=== PATIENT | female | born 1975 | race Caucasian/White ===

== ENCOUNTER → 2020-09-27 08:43 | Outpatient (BNVA) | payer MEDICARE, MEDICAID, SELFPAY | PROVIDERS: PCP Internal Medicine; Visit Provider Nurse Practitioner Family | DX: M47.27 Other spondylosis with radiculopathy, lumbosacral region (principal); M53.3 Sacrococcygeal disorders, not elsewhere classified | CPT/HCPCS: 99202 ==

== ENCOUNTER 2020-10-06 09:20 | Day surgery (SDC) | payer MEDICARE, MEDICAID, SELFPAY ==
--- NOTE | 2020-10-05 08:44 | P.CONAN_ITS ---
Documented by User: Farida Verona 10/05/20 13:07 HPI - Anesthesia Eval Consult details Narrative: 45yo F for Bilateral Medial Branch Block L3-L4,DR-L5 PMFSH Active Problems Active Problems: All Active Problems (Updated 09/27/20 @ 19:46 by Dilia Vicente NP) SI (sacroiliac) joint dysfunction (Acute) Spondylosis of lumbosacral spine with radiculopathy (Acute) Past Medical History Medical History Anxiety Arthritis Asthma Bipolar disorder CVA (cerebral vascular accident) Depression Fibromyalgia Hypertension Hypothyroid Insomnia ALEJANDRO (obstructive sleep apnea) Surgical History Surgical History S/P tubal ligation Social History Social History Smoking Status: Never smoker Use of substances other than those prescribed or required for medical reasons: No Have you been hit, kicked, punched, or otherwise hurt by someone within the past year? If so, by whom?: No Advance Directives: No Advance Directives Information Provided: No Recently lost weight without trying: No Meds Allergies Allergy/AdvReac Type Severity Reaction Status Date / Time acetaminophen [From PERCOCET] Allergy Unknown RASH Verified 09/27/20 09:07 amiloride Allergy Unknown unk Verified 09/27/20 09:07 codeine [CODEINE] Allergy Unknown RASH Verified 09/27/20 09:07 duloxetine [Cymbalta] Allergy Unknown rash/sick Verified 09/27/20 09:07 hydrochlorothiazide Allergy Unknown unk Verified 09/27/20 09:07 lurasidone [Latuda] Allergy Unknown unk Verified 09/27/20 09:07 milnacipran [Savella] Allergy Unknown rash/sick Verified 09/27/20 09:07 morphine Allergy Unknown Unknown Verified 09/27/20 09:07 Penicillins [PENICILLINS] Allergy Unknown NAUSEA & Verified 09/27/20 09:07 VOMITING, rash/sick pregabalin Allergy Unknown rash/sick Verified 09/27/20 09:07 sulindac Allergy Unknown Unknown Verified 09/27/20 09:07 From PERCOCET Allergy Unknown RASH Uncoded 05/04/20 17:51 Home Medications Medication Instructions Recorded Confirmed Last Taken Type albuterol sulfate 90 mcg/actuation 0 mcg INHALATION 09/27/20 09/27/20 Unknown History aerosol inhaler amitriptyline 100 mg tablet 100 mg PO BEDTIME 09/27/20 09/27/20 Unknown History aspirin 81 mg tablet,delayed 81 mg PO DAILY 09/27/20 09/27/20 Unknown History release atorvastatin 40 mg tablet 40 mg PO DAILY 09/27/20 09/27/20 Unknown History baclofen 20 mg tablet mg PO 09/27/20 09/27/20 Unknown History diazepam 2 mg tablet 2 mg PO BID 09/27/20 09/27/20 Unknown History diltiazem HCl 120 mg 120 mg PO DAILY 09/27/20 09/27/20 10/06/20 History capsule,extended release 24 hr famotidine 20 mg tablet 20 mg PO BID 09/27/20 09/27/20 Unknown History fluticasone propionate 50 0 mcg INTRANASAL 09/27/20 09/27/20 Unknown History mcg/actuation nasal spray,suspension furosemide 20 mg tablet 10 mg PO DAILY 09/27/20 09/27/20 Unknown History ibuprofen 400 mg tablet 400 mg PO BID 09/27/20 09/27/20 Unknown History lamotrigine 150 mg tablet 150 mg PO DAILY 09/27/20 09/27/20 Unknown History levocetirizine 5 mg tablet mg PO 09/27/20 09/27/20 Unknown History levothyroxine 150 mcg tablet 150 mcg PO DAILY 09/27/20 09/27/20 Unknown History linaclotide 145 mcg capsule 145 mcg PO QAM 09/27/20 09/27/20 Unknown History lisinopril 10 mg tablet 10 mg PO DAILY 09/27/20 09/27/20 Unknown History montelukast 10 mg tablet 10 mg PO DAILY 09/27/20 09/27/20 Unknown History nystatin 100,000 unit/gram topical TOPICAL TID 09/27/20 09/27/20 Unknown History powder penciclovir 1 % topical cream appl TOPICAL 09/27/20 09/27/20 Unknown History prednisolone acetate 1 % eye 1 drp OPHTHALMIC (EYE) Q6H ml 09/27/20 09/27/20 Unknown History drops,suspension trazodone 150 mg tablet 150 mg PO BEDTIME PRN 09/27/20 09/27/20 Unknown History Exam Exam Date and Time: October 05, 2020 0844 Assessment and Plan Assessment Anesthesia Assessment: Chart Reviewed Documented by User: Vlad Flanagan MD 10/06/20 11:22 [facility] Past Medical History Medical History Anxiety Arthritis Asthma Bipolar disorder CVA (cerebral vascular accident) Depression Fibromyalgia Hypertension Hypothyroid Insomnia ALEJANDRO (obstructive sleep apnea) Surgical History Surgical History S/P tubal ligation Social History Social History Smoking Status: Never smoker Use of substances other than those prescribed or required for medical reasons: No Have you been hit, kicked, punched, or otherwise hurt by someone within the past year? If so, by whom?: No Advance Directives: No Advance Directives Information Provided: No Recently lost weight without trying: No Meds Allergies Allergy/AdvReac Type Severity Reaction Status Date / Time acetaminophen [From PERCOCET] Allergy Unknown RASH Verified 09/27/20 09:07 amiloride Allergy Unknown unk Verified 09/27/20 09:07 codeine [CODEINE] Allergy Unknown RASH Verified 09/27/20 09:07 duloxetine [Cymbalta] Allergy Unknown rash/sick Verified 09/27/20 09:07 hydrochlorothiazide Allergy Unknown unk Verified 09/27/20 09:07 lurasidone [Latuda] Allergy Unknown unk Verified 09/27/20 09:07 milnacipran [Savella] Allergy Unknown rash/sick Verified 09/27/20 09:07 morphine Allergy Unknown Unknown Verified 09/27/20 09:07 Penicillins [PENICILLINS] Allergy Unknown NAUSEA & Verified 09/27/20 09:07 VOMITING, rash/sick pregabalin Allergy Unknown rash/sick Verified 09/27/20 09:07 sulindac Allergy Unknown Unknown Verified 09/27/20 09:07 From PERCOCET Allergy Unknown RASH Uncoded 05/04/20 17:51 Home Medications Medication Instructions Recorded Confirmed Last Taken Type albuterol sulfate 90 mcg/actuation 0 mcg INHALATION 09/27/20 09/27/20 Unknown History aerosol inhaler amitriptyline 100 mg tablet 100 mg PO BEDTIME 09/27/20 09/27/20 Unknown History aspirin 81 mg tablet,delayed 81 mg PO DAILY 09/27/20 09/27/20 Unknown History release atorvastatin 40 mg tablet 40 mg PO DAILY 09/27/20 09/27/20 Unknown History baclofen 20 mg tablet mg PO 09/27/20 09/27/20 Unknown History diazepam 2 mg tablet 2 mg PO BID 09/27/20 09/27/20 Unknown History diltiazem HCl 120 mg 120 mg PO DAILY 09/27/20 09/27/20 10/06/20 History capsule,extended release 24 hr famotidine 20 mg tablet 20 mg PO BID 09/27/20 09/27/20 Unknown History fluticasone propionate 50 0 mcg INTRANASAL 09/27/20 09/27/20 Unknown History mcg/actuation nasal spray,suspension furosemide 20 mg tablet 10 mg PO DAILY 09/27/20 09/27/20 Unknown History ibuprofen 400 mg tablet 400 mg PO BID 09/27/20 09/27/20 Unknown History lamotrigine 150 mg tablet 150 mg PO DAILY 09/27/20 09/27/20 Unknown History levocetirizine 5 mg tablet mg PO 09/27/20 09/27/20 Unknown History levothyroxine 150 mcg tablet 150 mcg PO DAILY 09/27/20 09/27/20 Unknown History linaclotide 145 mcg capsule 145 mcg PO QAM 09/27/20 09/27/20 Unknown History lisinopril 10 mg tablet 10 mg PO DAILY 09/27/20 09/27/20 Unknown History montelukast 10 mg tablet 10 mg PO DAILY 09/27/20 09/27/20 Unknown History nystatin 100,000 unit/gram topical TOPICAL TID 09/27/20 09/27/20 Unknown History powder penciclovir 1 % topical cream appl TOPICAL 09/27/20 09/27/20 Unknown History prednisolone acetate 1 % eye 1 drp OPHTHALMIC (EYE) Q6H ml 09/27/20 09/27/20 Unknown History drops,suspension trazodone 150 mg tablet 150 mg PO BEDTIME PRN 09/27/20 09/27/20 Unknown History Exam Airway Mallampati Class: III TM Dist: >3cm Neck ROM: Full Partial: Upper and Lower Loose/Missing/Broken Teeth: Yes Heart: RRR Lungs: NL Other: L sided weakness from prior CVA Assessment and Plan Assessment Anesthesia Assessment: Anesthesia Plan Discussed and Chart Reviewed Final Anesthetic Review NPO: Yes ASA Class: III Final Preanesthetic Review: No Changes in Pt Med Stat, Meds/Allgs Chart Reviewed, Consent Obtained/Reviewed and Anes Risks/Benef Reviewed Patient Risk: High Procedure Risk: Low Anesthetic Plan Anesthetic Plan: MAC: Disposition: Standard PACU
[2020-10-05 13:16] VITALS: BMI 42.3
--- NOTE | ~2020-10-06 | FL_ITS ---
EXAMINATION: XR FLUOROSCOPY WITH IMAGES CLINICAL INFORMATION: Medial branch block COMPARISON: None. TECHNIQUE: Fluoroscopy performed by Dr. Garfield Kaba. Fluoroscopy time: 0.8 minutes DAP: 13.0 Gycm2 Images: 6 FINDINGS: There are bilateral spinal needles overlying outer aspect bilateral L3, L4, L5 neural foramen. There is contrast seen in the respective nerve sheaths. No vascular communication. FL/FL guidance in OR IMPRESSION: Fluoroscopy for pain management procedures.
[2020-10-06 09:45] VITALS: BP 132/91; PULSE 86; RESP 16; TEMP 35.8; O2SAT 96
[2020-10-06] MEDS: Lactated Ringers 1,000 ML 100 ML IVCONT (10:01)
--- NOTE | 2020-10-06 11:04 | MHC.SHP ---
Pre-Procedural Eval Section A The patient is an INPATIENT: No Changes since office visit: Yes Patient answered all questions The History & Physical has been completed within 30 days and I have reviewed it.: No Section B Chief Complaint: Spondylosis Details of Present Illness: low back pain with rare radiation into the left LE Relevant Family History (Specify if Yes): No Relevant Social History: None Present Medications: see Short Stay Collaborative assessment Medical History: Significant History (morbid obesity, H/o stroke.) History of Previous Operations: No relevant previous surgery Allergies: Allergies Allergy/AdvReac Type Severity Reaction Status Date / Time acetaminophen [From PERCOCET] Allergy Unknown RASH Verified 09/27/20 09:07 amiloride Allergy Unknown unk Verified 09/27/20 09:07 codeine [CODEINE] Allergy Unknown RASH Verified 09/27/20 09:07 duloxetine [Cymbalta] Allergy Unknown rash/sick Verified 09/27/20 09:07 hydrochlorothiazide Allergy Unknown unk Verified 09/27/20 09:07 lurasidone [Latuda] Allergy Unknown unk Verified 09/27/20 09:07 milnacipran [Savella] Allergy Unknown rash/sick Verified 09/27/20 09:07 morphine Allergy Unknown Unknown Verified 09/27/20 09:07 Penicillins [PENICILLINS] Allergy Unknown NAUSEA & Verified 09/27/20 09:07 VOMITING, rash/sick pregabalin Allergy Unknown rash/sick Verified 09/27/20 09:07 sulindac Allergy Unknown Unknown Verified 09/27/20 09:07 From PERCOCET Allergy Unknown RASH Uncoded 05/04/20 17:51 Review of Systems Sugical H&P ROS: Negative: Cardiovascular, Respiratory, Neurological, Psychiatric, Hem-Onc, Allergic/Immunologic, Gastrointestinal, Genitourinary, Musculoskeletal, Integumentary, Endocrine and Eyes/Ears/Nose/Throat and Yes, Specify: Constitution (morbid obesity) Exam Surgical H&P Exam: Normal: HEENT, Normal: Heart, Normal: Lungs, Normal: Extremities and Normal: Neurological and Not Evaluated: Abdomen (greatly enlarged 2 to s/q and intrabdominal fat) and Not Evaluated: Skin (hemiparesis) Plan Diagnosis/Plan: Unchanged I have reviewed the history and physical and performed a pertinent physical examination on my patient. No changes have occurred unless specified.
--- NOTE | 2020-10-06 11:49 | P.OP_ITS ---
Operative Note Operative Note Date of Service: 10/06/20 Narrative: Informed consent was explained to the patient. All questions were explained and answered. The patient was taken inside the operating room where she was positioned prone on the operating table. [place] monitors were applied. Patient was deeply sedated. Opioids were avoided during the sedation. The patient was taken inside of the operating room where she was positioned prone operating table. Time-out was performed delineating correct site, side, the nature of the procedure, patient's allergy, preoperative antibiotic if needed. All operating room staff was participating in OR time-out procedure. The lower back was prepped with ChloraPrep and draped with sterile towels. Sterilely draped C-arm was brought over the operating field and sq picture of L4-and L5 vertebra and S1 AREA were delineated on the screen. Point of interest were delineated as connection of superior articular process of L4 and L5 vertebra bilaterally with corresponding transverse processes as well as connec tion of the sacral alae bilaterally with superior articular process of S1. The projection of the point of interest to the skin were injected with the small amount of local anesthetic lidocaine 2% 1-1.5 cc. After that 22 gauge regular spinal needles were driven to the point of interest in tunnel vision fashion. After needles gently contacted the bone at the point of interests the needle was injected with small amount of bupivacaine 0.5%-1cc. Upon completion of the injections needles were removed and sterile dressings were applied patient was awaken and taking outside of the operating room to recovery room where she recovered uneventfully. She went home without immediate complications.
[2020-10-06 11:50] VITALS: BP 133/86; PULSE 80; RESP 16; TEMP 36.9; O2SAT 94
--- NOTE | 2020-10-06 11:50 | PM.OP ---
Brief Operative Note Date of Service: 10/06/20 Pre-op diagnosis: spondylosis lumbar Post-op diagnosis: same Procedure: B/L MBB L3-L4-DRL5 Implants: 0 Surgeon: Garfield Kaba MD Anesthesia: MAC Estimated blood loss (mL): 0 Condition: stable Disposition: PACU
[2020-10-06 12:05] VITALS: BP 120/86; PULSE 79; RESP 16; O2SAT 92
[2020-10-06 12:20] VITALS: BP 122/79; PULSE 82; RESP 18; TEMP 36.9; O2SAT 96
== END 2020-10-06 13:18 ==
LOC: HO.SSS 09:21
PROVIDERS: PCP Internal Medicine; Visit Provider Anesthesiology
PROC: (CPT 64493; principal; 2020-10-06 10:30)
DX: M47.27 Other spondylosis with radiculopathy, lumbosacral region (principal); M53.3 Sacrococcygeal disorders, not elsewhere classified; J45.909 Unspecified asthma, uncomplicated; I10 Essential (primary) hypertension; I63.9 Cerebral infarction, unspecified; G81.94 Hemiplegia, unspecified affecting left nondominant side; F32.9 Major depressive disorder, single episode, unspecified; G47.33 Obstructive sleep apnea (adult) (pediatric); Z79.899 Other long term (current) drug therapy; Z99.89 Dependence on other enabling machines and devices; Z88.0 Allergy status to penicillin; Z79.82 Long term (current) use of aspirin
CPT/HCPCS: 64493; 64494; J2250; Q9967

== ENCOUNTER → 2020-10-11 11:42 | Outpatient (BNVA) | payer MEDICARE, MEDICAID, SELFPAY | PROVIDERS: PCP Internal Medicine; Visit Provider Nurse Practitioner Family | DX: M47.27 Other spondylosis with radiculopathy, lumbosacral region (principal) | CPT/HCPCS: Q3014 ==

== ENCOUNTER 2020-11-24 11:49 | Day surgery (SDC) | payer MEDICARE, MEDICAID, SELFPAY ==
[2020-11-21 13:00] VITALS: BMI 39.9
--- NOTE | 2020-11-23 10:02 | HO.ANESPROP2 ---
Documented by User: Farida Rhoades 11/23/20 10:03 HPI - Anesthesia Eval Consult details Narrative: 45yo F for Bilateral Medial Branch Radiofrequency AB s/p Bilateral Medial Branch Block L3-L4,DR-L5 with MAC 09/2020 Multiple Med Allergies PMFSH Active Problems Active Problems: All Active Problems (Updated 11/21/20 @ 12:49 by Gilma Hernandez RN) Spondylosis of lumbosacral spine with radiculopathy (Acute) SI (sacroiliac) joint dysfunction (Acute) Past Medical History Medical History Anxiety Arthritis Asthma Bipolar disorder CVA (cerebral vascular accident) Depression Diabetes Fibromyalgia Hypertension Hypothyroid Insomnia ALEJANDRO (obstructive sleep apnea) Surgical History Surgical History History of endometrial ablation History of hernia surgery Hx of appendectomy S/P tubal ligation Social History Social History Smoking Status: Never smoker Use of substances other than those prescribed or required for medical reasons: No Advance Directives: No Advance Directives Information Provided: Yes Meds Allergies Allergy/AdvReac Type Severity Reaction Status Date / Time acetaminophen [From PERCOCET] Allergy Severe Nausea and Verified 11/24/20 13:54 Vomiting lurasidone [Latuda] Allergy Severe unk Verified 11/24/20 13:54 morphine Allergy Severe Nausea and Verified 11/24/20 13:54 Vomiting codeine [CODEINE] Allergy Intermediate RASH Verified 11/24/20 13:55 duloxetine [Cymbalta] Allergy Intermediate rash/sick Verified 11/24/20 13:55 milnacipran [Savella] Allergy Intermediate rash/sick Verified 11/24/20 13:55 Penicillins [PENICILLINS] Allergy Intermediate NAUSEA & Verified 11/24/20 13:55 VOMITING, rash/sick pregabalin Allergy Intermediate rash/sick Verified 11/24/20 13:55 sulindac Allergy Intermediate Nausea and Verified 11/24/20 13:57 Vomiting amiloride Allergy Unknown unk Verified 10/11/20 11:43 hydrochlorothiazide Allergy Unknown unk Verified 10/11/20 11:43 From PERCOCET Allergy Severe RASH Uncoded 11/24/20 13:55 Home Medications Medication Instructions Recorded Confirmed Last Taken Type albuterol sulfate 90 mcg/actuation 0 mcg INHALATION 09/27/20 10/11/20 Unknown History aerosol inhaler amitriptyline 100 mg tablet 100 mg PO BEDTIME 09/27/20 10/11/20 Unknown History aspirin 81 mg tablet,delayed 81 mg PO DAILY 09/27/20 10/11/20 Unknown History release atorvastatin 40 mg tablet 40 mg PO DAILY 09/27/20 10/11/20 Unknown History baclofen 20 mg tablet mg PO 09/27/20 10/11/20 Unknown History diazepam 2 mg tablet 2 mg PO BID 09/27/20 10/11/20 Unknown History diltiazem HCl 120 mg 120 mg PO DAILY 09/27/20 10/11/20 11/24/20 07:00 History capsule,extended release 24 hr famotidine 20 mg tablet 20 mg PO BID 09/27/20 10/11/20 11/24/20 07:00 History fluticasone propionate 50 0 mcg INTRANASAL 09/27/20 10/11/20 Unknown History mcg/actuation nasal spray,suspension furosemide 20 mg tablet 10 mg PO DAILY 09/27/20 10/11/20 Unknown History ibuprofen 400 mg tablet 400 mg PO BID 09/27/20 10/11/20 Unknown History lamotrigine 150 mg tablet 150 mg PO DAILY 09/27/20 10/11/20 Unknown History levocetirizine 5 mg tablet mg PO 09/27/20 10/11/20 Unknown History levothyroxine 150 mcg tablet 150 mcg PO DAILY 09/27/20 10/11/20 11/24/20 07:00 History linaclotide 145 mcg capsule 145 mcg PO QAM 09/27/20 10/11/20 Unknown History lisinopril 10 mg tablet 10 mg PO DAILY 09/27/20 10/11/20 Unknown History montelukast 10 mg tablet 10 mg PO DAILY 09/27/20 10/11/20 Unknown History nystatin 100,000 unit/gram topical TOPICAL TID 09/27/20 10/11/20 Unknown History powder penciclovir 1 % topical cream appl TOPICAL 09/27/20 10/11/20 Unknown History prednisolone acetate 1 % eye 1 drp OPHTHALMIC (EYE) Q6H ml 09/27/20 10/11/20 Unknown History drops,suspension trazodone 150 mg tablet 150 mg PO BEDTIME PRN 09/27/20 10/11/20 Unknown History glyburide 1 tab PO BID 11/21/20 11/21/20 Unknown History metformin 1 tab PO BID 11/21/20 11/21/20 Unknown History budesonide-formoterol [Symbicort] 2 puff PO BID 11/24/20 11/24/20 11/24/20 07:00 History Exam Exam Date and Time: November 23, 2020 1002 Height,Weight and Vital Signs: Height 5 ft 2 in Weight 98.883 kg Assessment and Plan Assessment Anesthesia Assessment: Chart Reviewed Documented by User: Elena Salhe 11/24/20 14:52 PMFSH Past Medical History Medical History Anxiety Arthritis Asthma Bipolar disorder CVA (cerebral vascular accident) Depression Diabetes Fibromyalgia Hypertension Hypothyroid Insomnia ALEJANDRO (obstructive sleep apnea) Surgical History Surgical History History of endometrial ablation History of hernia surgery Hx of appendectomy S/P tubal ligation Social History Social History Smoking Status: Never smoker Use of substances other than those prescribed or required for medical reasons: No Advance Directives: No Advance Directives Information Provided: Yes Meds Allergies Allergy/AdvReac Type Severity Reaction Status Date / Time acetaminophen [From PERCOCET] Allergy Severe Nausea and Verified 11/24/20 13:54 Vomiting lurasidone [Latuda] Allergy Severe unk Verified 11/24/20 13:54 morphine Allergy Severe Nausea and Verified 11/24/20 13:54 Vomiting codeine [CODEINE] Allergy Intermediate RASH Verified 11/24/20 13:55 duloxetine [Cymbalta] Allergy Intermediate rash/sick Verified 11/24/20 13:55 milnacipran [Savella] Allergy Intermediate rash/sick Verified 11/24/20 13:55 Penicillins [PENICILLINS] Allergy Intermediate NAUSEA & Verified 11/24/20 13:55 VOMITING, rash/sick pregabalin Allergy Intermediate rash/sick Verified 11/24/20 13:55 sulindac Allergy Intermediate Nausea and Verified 11/24/20 13:57 Vomiting amiloride Allergy Unknown unk Verified 10/11/20 11:43 hydrochlorothiazide Allergy Unknown unk Verified 10/11/20 11:43 From PERCOCET Allergy Severe RASH Uncoded 11/24/20 13:55 Home Medications Medication Instructions Recorded Confirmed Last Taken Type albuterol sulfate 90 mcg/actuation 0 mcg INHALATION 09/27/20 10/11/20 Unknown History aerosol inhaler amitriptyline 100 mg tablet 100 mg PO BEDTIME 09/27/20 10/11/20 Unknown History aspirin 81 mg tablet,delayed 81 mg PO DAILY 09/27/20 10/11/20 Unknown History release atorvastatin 40 mg tablet 40 mg PO DAILY 09/27/20 10/11/20 Unknown History baclofen 20 mg tablet mg PO 09/27/20 10/11/20 Unknown History diazepam 2 mg tablet 2 mg PO BID 09/27/20 10/11/20 Unknown History diltiazem HCl 120 mg 120 mg PO DAILY 09/27/20 10/11/20 11/24/20 07:00 History capsule,extended release 24 hr famotidine 20 mg tablet 20 mg PO BID 09/27/20 10/11/20 11/24/20 07:00 History fluticasone propionate 50 0 mcg INTRANASAL 09/27/20 10/11/20 Unknown History mcg/actuation nasal spray,suspension furosemide 20 mg tablet 10 mg PO DAILY 09/27/20 10/11/20 Unknown History ibuprofen 400 mg tablet 400 mg PO BID 09/27/20 10/11/20 Unknown History lamotrigine 150 mg tablet 150 mg PO DAILY 09/27/20 10/11/20 Unknown History levocetirizine 5 mg tablet mg PO 09/27/20 10/11/20 Unknown History levothyroxine 150 mcg tablet 150 mcg PO DAILY 09/27/20 10/11/20 11/24/20 07:00 History linaclotide 145 mcg capsule 145 mcg PO QAM 09/27/20 10/11/20 Unknown History lisinopril 10 mg tablet 10 mg PO DAILY 09/27/20 10/11/20 Unknown History montelukast 10 mg tablet 10 mg PO DAILY 09/27/20 10/11/20 Unknown History nystatin 100,000 unit/gram topical TOPICAL TID 09/27/20 10/11/20 Unknown History powder penciclovir 1 % topical cream appl TOPICAL 09/27/20 10/11/20 Unknown History prednisolone acetate 1 % eye 1 drp OPHTHALMIC (EYE) Q6H ml 09/27/20 10/11/20 Unknown History drops,suspension trazodone 150 mg tablet 150 mg PO BEDTIME PRN 09/27/20 10/11/20 Unknown History glyburide 1 tab PO BID 11/21/20 11/21/20 Unknown History metformin 1 tab PO BID 11/21/20 11/21/20 Unknown History budesonide-formoterol [Symbicort] 2 puff PO BID 11/24/20 11/24/20 11/24/20 07:00 History Exam Airway Mallampati Class: II TM Dist: >3cm Neck ROM: Full Assessment and Plan Assessment Anesthesia Assessment: Anesthesia Plan Discussed and Chart Reviewed Final Anesthetic Review NPO: Yes ASA Class: III Final Preanesthetic Review: No Changes in Pt Med Stat, Meds/Allgs Chart Reviewed, Consent Obtained/Reviewed and Anes Risks/Benef Reviewed Patient Risk: Intermediate Procedure Risk: Low Assessment/Block/Sedation in SS: Assess/Block/Sedation-SS Anesthetic Plan Anesthetic Plan: MAC: Disposition: Standard PACU
--- NOTE | ~2020-11-24 | FL_ITS ---
EXAMINATION: XR FLUOROSCOPY WITH IMAGES CLINICAL INFORMATION: Medial branch RFA COMPARISON: None. TECHNIQUE: Fluoroscopy performed by Dr. Garfield Kaba. Fluoroscopy time: 1.1 minutes DAP: 18.8 mGycm2 Images: 4 FINDINGS: There are spinal needles overlying outer aspect bilateral L3, L4, and L5 neural foramen. There is a spot density overlying the images, known unexplained artifact on the equipment. FL/FL guidance in OR IMPRESSION: Fluoroscopy for pain management procedures.
[2020-11-24 13:41] LABS: Glucose, Whole Blood 69 mg/dL (60-115)
[2020-11-24 13:42] VITALS: BP 125/84; PULSE 83; RESP 18; TEMP 36.1; O2SAT 96
--- NOTE | 2020-11-24 14:03 | PC.NURSE ---
1335 pt poc was 69. pt reported tired and has a headache. which happens when her blood surgar is low. informed Dr. Hollins of blood sugar. Verbal/computer order for 250 D5W. D5W up 1350. pt resting quietly. pt states feels ok just tired. pt ox3. resting quietly.
[2020-11-24 15:13] LABS: Glucose, Whole Blood 103 mg/dL (60-115)
--- NOTE | 2020-11-24 15:38 | PC.NURSE ---
POC RECHECK AT 1506 = 103
--- NOTE | 2020-11-24 15:47 | MHC.SHP ---
Pre-Procedural Eval Section B Chief Complaint: Spondylosis of lumbosacral spine w/radiculopathy Details of Present Illness: As above Relevant Family History (Specify if Yes): No Relevant Social History: None Present Medications: see Short Stay Collaborative assessment Medical History: No relevant PMH Allergies: Allergies Allergy/AdvReac Type Severity Reaction Status Date / Time acetaminophen [From PERCOCET] Allergy Severe Nausea and Verified 11/24/20 13:54 Vomiting lurasidone [Latuda] Allergy Severe unk Verified 11/24/20 13:54 morphine Allergy Severe Nausea and Verified 11/24/20 13:54 Vomiting codeine [CODEINE] Allergy Intermediate RASH Verified 11/24/20 13:55 duloxetine [Cymbalta] Allergy Intermediate rash/sick Verified 11/24/20 13:55 milnacipran [Savella] Allergy Intermediate rash/sick Verified 11/24/20 13:55 Penicillins [PENICILLINS] Allergy Intermediate NAUSEA & Verified 11/24/20 13:55 VOMITING, rash/sick pregabalin Allergy Intermediate rash/sick Verified 11/24/20 13:55 sulindac Allergy Intermediate Nausea and Verified 11/24/20 13:57 Vomiting amiloride Allergy Unknown unk Verified 10/11/20 11:43 hydrochlorothiazide Allergy Unknown unk Verified 10/11/20 11:43 From PERCOCET Allergy Severe RASH Uncoded 11/24/20 13:55 Review of Systems Sugical H&P ROS: Negative: Constitution, Cardiovascular, Respiratory, Neurological, Psychiatric, Hem-Onc, Allergic/Immunologic, Gastrointestinal, Genitourinary, Musculoskeletal, Integumentary, Endocrine and Eyes/Ears/Nose/Throat Exam Surgical H&P Exam: Normal: HEENT, Normal: Heart, Normal: Lungs, Normal: Extremities, Normal: Abdomen, Normal: Skin and Normal: Neurological Plan Diagnosis/Plan: Unchanged I have reviewed the history and physical and performed a pertinent physical examination on my patient. No changes have occurred unless specified.
--- NOTE | 2020-11-24 15:49 | P.OP_ITS ---
Operative Note Operative Note Date of Service: 11/24/20 Narrative: Informed consent was explained to the patient. All questions were explained and answered. The patient was taken inside of the operating room where she was positioned prone on the operating table. Time-out was performed delineating patient's name and date of , correct site, side, the nature of the procedure, patient's allergy, preoperative antibiotic if needed. All operating room staff was participating in OR time-out procedure. [place] [employer] monitors were applied. Patient was moderately sedated. Her lower back was prepped with ChloraPrep and draped with sterile towels. Sterilely draped C-arm was brought over the operating field and sq picture of L4-5 vertebra as and S1 vertebra were delineated on the screen. Points of interest were delineated as connection of superior articular process of L4 and L5 vertebra bilaterally with corresponding transverse processes as well as connection of the sacral alae bilaterally with superior articular process of S1. The projection of the point of interest to the skin were injected with the small amount of local anesthetic lidocaine 2% 1-1.5 cc. After that 18 gauge 100 mm radiofrequency cannulas were driven to the point of interest in tunnel vision fashion under oblique view with insurance sales supervisor of the C-arm tilted 15? to the feet. After needles gently contacted the bone at the point of interests the stylets were removed from the needles and electrodes were inserted into the needles. Electrodes were connected to the radiofrequency machine and testing was performed for the patient's sensory and motor function. There were no pathological motor response indicating stimulation of somatic nerves. After that electrodes were removed and each needle was injected with small amount of bupivacaine 0.5% 1-1.5 cc mixed with trace amount of Kenalog. Upon completion of the injections the electrodes were reinserted and energy to reach 89 degree centigrade for 90 seconds was applied to each needle 1st on the left side and then on the right. Upon completion of the energy application the needles were rotated 180? and energy applied with the same temperature and with the same time. Upon completion of the injections needles were removed and sterile dressings were applied patient was awaken and taking outside of the operating room to recovery room which she recovered uneventfully. She went home without immediate complications.
--- NOTE | 2020-11-24 17:13 | PM.OP ---
Brief Operative Note Date of Service: 11/24/20 Pre-op diagnosis: Spondylosis lumbar Post-op diagnosis: same Procedure: L3-L4 L5 bilateral medial branch radiofrequency ablation Surgeon: Garfield Kaba MD Anesthesia: MAC Estimated blood loss (mL): 1 Condition: stable Disposition: PACU
[2020-11-24 17:16] VITALS: BP 139/78; PULSE 88; RESP 12; TEMP 36.6; O2SAT 97
[2020-11-24] MEDS: ondansetron HCL 4 MG/2 ML VIAL IVPUSH (17:23)
[2020-11-24 17:31] VITALS: BP 131/69; PULSE 78; RESP 16; O2SAT 93
[2020-11-24 17:46] VITALS: BP 113/58; PULSE 77; RESP 16; O2SAT 94
--- NOTE | 2020-11-24 17:47 | PC.NURSE ---
POC 101
[2020-11-24 17:52] LABS: Glucose, Whole Blood 101 mg/dL (60-115)
[2020-11-24 18:00] VITALS: BP 107/54; PULSE 77; RESP 16; O2SAT 94
--- NOTE | 2020-11-24 18:10 | PC.NURSE ---
ASSISTED TO DRESS AT BEDSIDE. WICK. NO COMPLAINTS WEAKNESS TINGLING OTHER THAN BASELINE WEAKNESS RELATED TO HX CVA. ABLE SELF TRANSFER TAKE FEW STEPS SAFELY TO WHEELCHAIR.
[2020-11-24 18:15] VITALS: BP 124/80; PULSE 70; RESP 20; O2SAT 95
== END 2020-11-24 18:30 ==
LOC: HO.SSS 11:50
PROVIDERS: PCP Internal Medicine; Visit Provider Anesthesiology
PROC: (CPT 64635; principal; 2020-11-24 13:40)
DX: M47.26 Other spondylosis with radiculopathy, lumbar region (principal); I10 Essential (primary) hypertension; E11.9 Type 2 diabetes mellitus without complications; I69.354 Hemiplegia and hemiparesis following cerebral infarction affecting left non-dominant side; M79.7 Fibromyalgia; Z79.82 Long term (current) use of aspirin; Z79.84 Long term (current) use of oral hypoglycemic drugs; Z79.899 Other long term (current) drug therapy; Z88.0 Allergy status to penicillin; Z88.6 Allergy status to analgesic agent; Z88.8 Allergy status to other drugs, medicaments and biological substances
CPT/HCPCS: 64635; 64636 ×2; 82947; J2250; J2405; J3010; J3300

== ENCOUNTER → 2020-12-18 09:28 | Outpatient (BNVA) | payer MEDICARE, MEDICAID, SELFPAY | PROVIDERS: PCP Internal Medicine; Visit Provider Anesthesiology | DX: M47.27 Other spondylosis with radiculopathy, lumbosacral region (principal) | CPT/HCPCS: 99212 ==

== ENCOUNTER → 2021-01-08 14:38 | Outpatient (BNVA) | payer MEDICARE, MEDICAID, SELFPAY | PROVIDERS: PCP Internal Medicine; Visit Provider Anesthesiology | DX: M47.27 Other spondylosis with radiculopathy, lumbosacral region (principal) | CPT/HCPCS: Q3014 ==

== ENCOUNTER 2021-04-13 06:37 | Day surgery (SDC) | payer MEDICARE, MEDICAID, SELFPAY ==
[2021-04-06 12:04] VITALS: BMI 45.3
--- NOTE | 2021-04-12 09:26 | HO.ANESPROP2 ---
Documented by User: Farida Rhoades NP 04/12/21 09:28 HPI - Anesthesia Eval Consult details Narrative: 46yo F for Right S.I. Joint Fusion s/p Medial Branch Radiofreq Ablation 11/2020 with MAC *Mult Med Allergies* PMFSH Active Problems Active Problems: All Active Problems (Updated 04/06/21 @ 12:04 by Carla Duncan, RN) Spondylosis of lumbosacral spine with radiculopathy (Acute) SI (sacroiliac) joint dysfunction (Acute) Past Medical History Medical History Anxiety Arthritis Asthma Bipolar disorder COVID-19 vaccine series completed CVA (cerebral vascular accident) Depression Diabetes Fibromyalgia Hypertension Hypothyroid Insomnia Low back pain Lymphedema of left leg ALEJANDRO (obstructive sleep apnea) Surgical History Surgical History H/O arthroscopy of right knee History of endometrial ablation History of hernia surgery History of tonsillectomy and adenoidectomy Hx of appendectomy S/P tubal ligation Social History Social History Patient Tobacco Use Status: Never used Tobacco Are you DNR?: No Advance Directives: No Advance Directives Information Provided: No Advance Directives on File: No Meds Allergies Allergy/AdvReac Type Severity Reaction Status Date / Time lurasidone [Latuda] Allergy Severe Unknown Verified 04/06/21 11:57 morphine Allergy Severe Nausea and Verified 04/06/21 11:57 Vomiting codeine [CODEINE] Allergy Intermediate RASH Verified 04/06/21 11:57 duloxetine [Cymbalta] Allergy Intermediate rash/sick Verified 04/06/21 11:57 milnacipran [Savella] Allergy Intermediate rash,nausea, Verified 04/06/21 11:57 vomiting Penicillins [PENICILLINS] Allergy Intermediate NAUSEA & Verified 04/06/21 11:57 VOMITING, rash/sick pregabalin Allergy Intermediate rash, Verified 04/06/21 11:57 nausea,vomting sulindac Allergy Intermediate Nausea, Verified 04/06/21 11:57 Vomiting amiloride Allergy Unknown Unknown Verified 04/06/21 11:57 hydrochlorothiazide Allergy Unknown Unknown Verified 04/06/21 11:57 From PERCOCET Allergy Severe RASH Uncoded 04/06/21 11:58 Home Medications Medication Instructions Recorded Confirmed Last Taken Type albuterol sulfate 90 mcg/actuation 1 puff INHALATION Q4-6H PRN 09/27/20 04/06/21 04/13/21 History aerosol inhaler amitriptyline 100 mg tablet 100 mg PO BEDTIME 09/27/20 04/06/21 Unknown History aspirin 81 mg tablet,delayed 81 mg PO DAILY 09/27/20 04/06/21 03/30/21 History release (Adult Aspirin Regimen) atorvastatin 40 mg tablet 40 mg PO BEDTIME 09/27/20 04/06/21 Unknown History baclofen 20 mg tablet 20 mg PO BID 09/27/20 04/06/21 Unknown History diazepam 2 mg tablet 2 mg PO BID 09/27/20 04/06/21 04/13/21 History diltiazem HCl 120 mg 120 mg PO DAILY 09/27/20 04/06/21 04/13/21 History capsule,extended release 24 hr famotidine 20 mg tablet 20 mg PO BID 09/27/20 04/06/21 04/13/21 History fluticasone propionate 50 0 mcg INTRANASAL PRN 09/27/20 10/11/20 Unknown History mcg/actuation nasal spray,suspension furosemide 20 mg tablet 10 mg PO DAILY 09/27/20 04/06/21 Unknown History ibuprofen 400 mg tablet 400 mg PO BID PRN 09/27/20 04/06/21 Unknown History lamotrigine 150 mg tablet 150 mg PO DAILY 09/27/20 04/06/21 Unknown History levocetirizine 5 mg tablet 5 mg PO DAILY 09/27/20 04/06/21 Unknown History levothyroxine 150 mcg tablet 150 mcg PO DAILY 09/27/20 04/06/21 04/13/21 History linaclotide 145 mcg capsule 290 mcg PO QAM 09/27/20 04/06/21 Unknown History lisinopril 10 mg tablet 10 mg PO DAILY 09/27/20 10/11/20 Unknown History montelukast 10 mg tablet 10 mg PO BEDTIME 09/27/20 04/06/21 Unknown History nystatin 100,000 unit/gram topical TOPICAL TID 09/27/20 10/11/20 Unknown History powder penciclovir 1 % topical cream appl TOPICAL 09/27/20 10/11/20 Unknown History metformin 500 mg tablet 500 mg PO BID 11/21/20 04/06/21 Unknown History budesonide-formoterol HFA 160 2 puff PO BID 11/24/20 04/06/21 11/24/20 07:00 History mcg-4.5 mcg/actuation aerosol inhaler (Symbicort) buspirone 5 mg tablet 1 tab PO TID 04/06/21 04/06/21 04/13/21 History zolpidem 5 mg tablet 1 tab PO BEDTIME 04/06/21 04/06/21 Unknown History Exam Exam Date and Time: April 12, [id number] Height,Weight and Vital Signs: Height 5 ft 1 in Weight 108.862 kg Assessment and Plan Assessment Anesthesia Assessment: Chart Reviewed Documented by User: Elena Saleh MD 04/13/21 07:14 [facility] Past Medical History Medical History Anxiety Arthritis Asthma Bipolar disorder COVID-19 vaccine series completed CVA (cerebral vascular accident) Depression Diabetes Fibromyalgia Hypertension Hypothyroid Insomnia Low back pain Lymphedema of left leg ALEJANDRO (obstructive sleep apnea) Family History Family history of problems with anesthesia: No Surgical History Surgical History H/O arthroscopy of right knee History of endometrial ablation History of hernia surgery History of tonsillectomy and adenoidectomy Hx of appendectomy S/P tubal ligation History of Problems with Anesthesia: No Social History Social History Patient Tobacco Use Status: Never used Tobacco Are you DNR?: No Advance Directives: No Advance Directives Information Provided: No Advance Directives on File: No Meds Allergies Allergy/AdvReac Type Severity Reaction Status Date / Time lurasidone [Latuda] Allergy Severe Unknown Verified 04/06/21 11:57 morphine Allergy Severe Nausea and Verified 04/06/21 11:57 Vomiting codeine [CODEINE] Allergy Intermediate RASH Verified 04/06/21 11:57 duloxetine [Cymbalta] Allergy Intermediate rash/sick Verified 04/06/21 11:57 milnacipran [Savella] Allergy Intermediate rash,nausea, Verified 04/06/21 11:57 vomiting Penicillins [PENICILLINS] Allergy Intermediate NAUSEA & Verified 04/06/21 11:57 VOMITING, rash/sick pregabalin Allergy Intermediate rash, Verified 04/06/21 11:57 nausea,vomting sulindac Allergy Intermediate Nausea, Verified 04/06/21 11:57 Vomiting amiloride Allergy Unknown Unknown Verified 04/06/21 11:57 hydrochlorothiazide Allergy Unknown Unknown Verified 04/06/21 11:57 From PERCOCET Allergy Severe RASH Uncoded 04/06/21 11:58 Home Medications Medication Instructions Recorded Confirmed Last Taken Type albuterol sulfate 90 mcg/actuation 1 puff INHALATION Q4-6H PRN 09/27/20 04/06/21 04/13/21 History aerosol inhaler amitriptyline 100 mg tablet 100 mg PO BEDTIME 09/27/20 04/06/21 Unknown History aspirin 81 mg tablet,delayed 81 mg PO DAILY 09/27/20 04/06/21 03/30/21 History release (Adult Aspirin Regimen) atorvastatin 40 mg tablet 40 mg PO BEDTIME 09/27/20 04/06/21 Unknown History baclofen 20 mg tablet 20 mg PO BID 09/27/20 04/06/21 Unknown History diazepam 2 mg tablet 2 mg PO BID 09/27/20 04/06/21 04/13/21 History diltiazem HCl 120 mg 120 mg PO DAILY 09/27/20 04/06/21 04/13/21 History capsule,extended release 24 hr famotidine 20 mg tablet 20 mg PO BID 09/27/20 04/06/21 04/13/21 History fluticasone propionate 50 0 mcg INTRANASAL PRN 09/27/20 10/11/20 Unknown History mcg/actuation nasal spray,suspension furosemide 20 mg tablet 10 mg PO DAILY 09/27/20 04/06/21 Unknown History ibuprofen 400 mg tablet 400 mg PO BID PRN 09/27/20 04/06/21 Unknown History lamotrigine 150 mg tablet 150 mg PO DAILY 09/27/20 04/06/21 Unknown History levocetirizine 5 mg tablet 5 mg PO DAILY 09/27/20 04/06/21 Unknown History levothyroxine 150 mcg tablet 150 mcg PO DAILY 09/27/20 04/06/21 04/13/21 History linaclotide 145 mcg capsule 290 mcg PO QAM 09/27/20 04/06/21 Unknown History lisinopril 10 mg tablet 10 mg PO DAILY 09/27/20 10/11/20 Unknown History montelukast 10 mg tablet 10 mg PO BEDTIME 09/27/20 04/06/21 Unknown History nystatin 100,000 unit/gram topical TOPICAL TID 09/27/20 10/11/20 Unknown History powder penciclovir 1 % topical cream appl TOPICAL 09/27/20 10/11/20 Unknown History metformin 500 mg tablet 500 mg PO BID 11/21/20 04/06/21 Unknown History budesonide-formoterol HFA 160 2 puff PO BID 11/24/20 04/06/21 11/24/20 07:00 History mcg-4.5 mcg/actuation aerosol inhaler (Symbicort) buspirone 5 mg tablet 1 tab PO TID 04/06/21 04/06/21 04/13/21 History zolpidem 5 mg tablet 1 tab PO BEDTIME 04/06/21 04/06/21 Unknown History Exam Airway TM Dist: >3cm Neck ROM: Full Partial: Upper and Lower Assessment and Plan Assessment Anesthesia Assessment: Anesthesia Plan Discussed Final Anesthetic Review Family History of Problems with Anesthesia: No History of Problems with Anesthesia: No NPO: Yes ASA Class: III Final Preanesthetic Review: No Changes in Pt Med Stat, Meds/Allgs Chart Reviewed, Consent Obtained/Reviewed and Anes Risks/Benef Reviewed Patient Risk: Intermediate Procedure Risk: Low Assessment/Block/Sedation in SS: Assess/Block/Sedation-SS Anesthetic Plan Anesthetic Plan: GA Disposition: Standard PACU
--- NOTE | 2021-04-12 18:32 | MHC.SHP ---
Pre-Procedural Eval Section A Date of Service: 04/12/21 The patient is an INPATIENT: No Section B Chief Complaint: sacroccygeal disorders Details of Present Illness: As above Relevant Family History (Specify if Yes): No Relevant Social History: None Present Medications: see Short Stay Collaborative assessment Medical History: No relevant PMH History of Previous Operations: No relevant previous surgery Allergies: Allergies Allergy/AdvReac Type Severity Reaction Status Date / Time lurasidone [Latuda] Allergy Severe Unknown Verified 04/06/21 11:57 morphine Allergy Severe Nausea and Verified 04/06/21 11:57 Vomiting codeine [CODEINE] Allergy Intermediate RASH Verified 04/06/21 11:57 duloxetine [Cymbalta] Allergy Intermediate rash/sick Verified 04/06/21 11:57 milnacipran [Savella] Allergy Intermediate rash,nausea, Verified 04/06/21 11:57 vomiting Penicillins [PENICILLINS] Allergy Intermediate NAUSEA & Verified 04/06/21 11:57 VOMITING, rash/sick pregabalin Allergy Intermediate rash, Verified 04/06/21 11:57 nausea,vomting sulindac Allergy Intermediate Nausea, Verified 04/06/21 11:57 Vomiting amiloride Allergy Unknown Unknown Verified 04/06/21 11:57 hydrochlorothiazide Allergy Unknown Unknown Verified 04/06/21 11:57 From PERCOCET Allergy Severe RASH Uncoded 04/06/21 11:58 Review of Systems Sugical H&P ROS: Negative: Constitution, Cardiovascular, Respiratory, Neurological, Psychiatric, Hem-Onc, Allergic/Immunologic, Gastrointestinal, Genitourinary, Musculoskeletal, Integumentary, Endocrine and Eyes/Ears/Nose/Throat Exam Surgical H&P Exam: Normal: HEENT, Normal: Heart, Normal: Lungs, Normal: Extremities, Normal: Abdomen, Normal: Skin and Normal: Neurological Plan Diagnosis/Plan: Unchanged I have reviewed the history and physical and performed a pertinent physical examination on my patient. No changes have occurred unless specified.
[2021-04-13] VITALS (9 sets, daily range): BP systolic 104–152; BP diastolic 65–87; PULSE 80–95; RESP 15–20; TEMP 36.1–36.7; O2SAT 93–100
--- NOTE | ~2021-04-13 | FL_ITS ---
EXAMINATION: XR FLUOROSCOPY WITH IMAGES CLINICAL INFORMATION: SI joint symptoms COMPARISON: None. TECHNIQUE: Fluoroscopy performed by Dr. Garfield Kaba. Fluoroscopy time: 1.4 minutes DAP: 13.4 Gycm2 Images: 2 FINDINGS: There is a ring marker overlying the right SI joint. FL/FL guidance in OR IMPRESSION: Fluoroscopy for pain management procedure.
[2021-04-13 06:50] LABS: Glucose, Whole Blood 149 mg/dL (60-115)
[2021-04-13] MEDS: Lactated Ringers 1,000 ML 100 ML IVCONT (07:08)
--- NOTE | 2021-04-13 08:21 | W.PM.OPN ---
Operative Note Operative Note Date of Service: 04/13/21 Narrative: Sacroiliac joint stabilisation procedure. posterior sacroiliac joint fusion using LINQ SI joint stabilization system with C-arm fluoroscopy for guidance. ? 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 and sacroiliitis on the right.??She failed conservative management of sacroiliitis.??She came today to receive the procedures as above.??The risks and benefits including bleeding, infection, peripheral nerve damage, failure to reduce the pain were explained to the patient.?The patient came to the operating room, she was positioned on the stretcher supine [place] [employer] monitors were applied and patient was administered with general endotracheal anesthesia.??After that the patient was transferred on operating table and positioned prone with all pressure points protected. The patient was administered 900 mg of clindamycin approximately 15 minutes before the start of the procedure.? Time-out was performed delineating correct site, side, and nature of the procedure, name and date of of the patient, risk of fire, need for DVT prophylaxis, need for antibiotics.? The patient was transferred?on?radiolucent table. All pressure points were protected again. Lower back and bilateral buttocks were prepped with ChloraPrep and draped with full body drape. 3. 5 cm posterior midline incision over the projection of the right S1 foramina was performed.? Soft tissue dissection done to sacroiliac joint and thorough blind dissection was made in the direction of the?sacroiliac joint.? K-wire pin was inserted into the sacroiliac joint and guiding instrument was inserted into the joint using the pin as a guide and advanced into the joint on the intermittent anterior posterior and lateral views.??? After that pain was removed and rasping device was inserted to broach and rasp sacroiliac joint.? Once joint was prepared and inserted the structural allograft implant was hammered into the joint . It was packed with ortho biologics in and around the implant to provide better opportunity? for bones fusion.? Surgery was concluded by performing standard suture closing technique.? The position of the allograft was confirmed radiographically.? The wound was irrigated hemostasis was achieved wound was closed in 2 layers.? Sterile?dressing was applied.? The patient tolerated procedure well she was awaken and taken outside of the operating room to PACU where she recovered uneventfully. She went home without immediate complications. She will be wearing an SI joint fixation belt for the 6 weeks after the procedure.
--- NOTE | 2021-04-13 09:57 | PM.OP ---
Brief Operative Note Date of Service: 04/13/21 Pre-op diagnosis: Sacroiliac joint instability right. Sacroiliac joint dysfunction right. Sacroiliitis. Post-op diagnosis: same Procedure: Right sacroiliac joint fusion painteq Implants: Cadaver bone and bone growth stimulator imbedded into the space of the sacroiliac joint to create arthrodesis. Surgeon: Garfield Kaba MD Anesthesia: GETA Was an Shearing Machine Feeder used for this Procedure?: No Estimated blood loss (mL): 80 Pathology: none sent Condition: stable Disposition: PACU
[2021-04-13] MEDS: ondansetron HCL 4 MG/2 ML VIAL IVPUSH (10:16)
[2021-04-13] MEDS: traMADoL HCL 50 MG TABLET PO (10:44)
== END 2021-04-13 12:06 | disposition home or self-care (01) ==
PROVIDERS: PCP Internal Medicine; Visit Provider Anesthesiology
PROC: (CPT 27279; principal; 2021-04-13 08:30)
DX: M46.1 Sacroiliitis, not elsewhere classified (principal); M47.27 Other spondylosis with radiculopathy, lumbosacral region; E11.9 Type 2 diabetes mellitus without complications; I10 Essential (primary) hypertension
CPT/HCPCS: 27279; 82947; C1713; J1100; J2250; J2405; J3010; J3370

== ENCOUNTER → 2021-04-26 09:53 | Outpatient (BNVA) | payer MEDICARE, MEDICAID, SELFPAY | PROVIDERS: PCP Internal Medicine; Visit Provider Anesthesiology | DX: M47.27 Other spondylosis with radiculopathy, lumbosacral region (principal); M53.3 Sacrococcygeal disorders, not elsewhere classified; M46.1 Sacroiliitis, not elsewhere classified | CPT/HCPCS: 99212 ==

== ENCOUNTER 2021-05-09 12:45 | Outpatient (REF) | payer MEDICARE, MEDICAID, SELFPAY ==
--- NOTE | ~2021-05-09 | XR_ITS ---
EXAMINATION: XR PELVIS CLINICAL INFORMATION: Follow-up in right SI joint bone graft. COMPARISON: Comparison is done to previous exam 04/13/2021. TECHNIQUE: AP view of the pelvis. FINDINGS: There is mild pelvic tilt on AP view of the right iliac crest appearing slightly higher in position. There is a bone graft visualized in the right SI joint. Compared to previous study the bone graft may be minimally shifted posteriorly by a few millimeters but not a lot. The SI joint appears unremarkable. The soft tissues are normal. XR/XR pelvis 1-2V IMPRESSION: There is bone graft visualized at the right SI joint. Question minimal posterior shift of bone graft compared to previous exam 04/13/2021.
== END 2021-05-09 12:46 | disposition home or self-care (01) ==
LOC: HO.HMGCX 12:45
PROVIDERS: Visit Provider Anesthesiology
DX: M47.27 Other spondylosis with radiculopathy, lumbosacral region (principal); M53.3 Sacrococcygeal disorders, not elsewhere classified; M46.1 Sacroiliitis, not elsewhere classified
CPT/HCPCS: 72170; 99212

== ENCOUNTER → 2021-05-14 08:43 | Outpatient (BNVA) | payer MEDICARE, MEDICAID, SELFPAY | PROVIDERS: PCP Internal Medicine; Visit Provider Anesthesiology | DX: M47.27 Other spondylosis with radiculopathy, lumbosacral region (principal); M53.3 Sacrococcygeal disorders, not elsewhere classified; M46.1 Sacroiliitis, not elsewhere classified | CPT/HCPCS: 99212 ==

== ENCOUNTER 2021-06-08 06:39 | Day surgery (SDC) | payer MEDICARE, MEDICAID, SELFPAY ==
[2021-06-04 11:37] VITALS: BMI 45.3
--- NOTE | 2021-06-07 14:01 | HO.ANESPROP2 ---
Documented by User: Farida Rhoades NP 06/07/21 14:03 HPI - Anesthesia Eval Consult details Narrative: 46yo F for Right Sacroiliac Joint Innervation Stimulation Trial s/p SI Joint Fusion 03/2021 with GETA 7.5 *Multiple med allergies* PMFSH Active Problems Active Problems: All Active Problems (Updated 06/04/21 @ 11:31 by Carla Duncan, RN) Spondylosis of lumbosacral spine with radiculopathy (Acute) SI (sacroiliac) joint dysfunction (Acute) Sacroiliitis (Acute) Past Medical History Medical History (Updated 06/04/21 @ 11:31 by Carla Duncan, ZHANE) Anxiety Arthritis Asthma Bipolar disorder COVID-19 vaccine series completed CVA (cerebral vascular accident) Depression Diabetes Fibromyalgia Hypertension Hypothyroid Insomnia Low back pain Lymphedema of left leg ALEJANDRO (obstructive sleep apnea) Sacroiliitis Family History Family history of problems with anesthesia: No Surgical History Surgical History H/O arthroscopy of right knee History of endometrial ablation History of hernia surgery History of tonsillectomy and adenoidectomy Hx of appendectomy S/P tubal ligation History of Problems with Anesthesia: No Social History Social History Patient Tobacco Use Status: Never used Tobacco Are you DNR?: No Advance Directives: No Advance Directives Information Provided: No (mailed info) Advance Directives on File: No Meds Allergies Allergy/AdvReac Type Severity Reaction Status Date / Time lurasidone [Latuda] Allergy Severe Unknown Verified 06/04/21 11:33 morphine Allergy Severe Nausea and Verified 06/04/21 11:33 Vomiting codeine [CODEINE] Allergy Intermediate RASH Verified 06/04/21 11:33 duloxetine [Cymbalta] Allergy Intermediate rash, n/v Verified 06/04/21 11:33 milnacipran [Savella] Allergy Intermediate rash,nausea, Verified 06/04/21 11:33 vomiting Penicillins [PENICILLINS] Allergy Intermediate NAUSEA & Verified 06/04/21 11:33 VOMITING, rash/sick pregabalin Allergy Intermediate rash,n/v Verified 06/04/21 11:33 sulindac Allergy Intermediate Nausea, Verified 06/04/21 11:33 Vomiting amiloride Allergy Unknown Unknown Verified 06/04/21 11:33 hydrochlorothiazide Allergy Unknown Unknown Verified 06/04/21 11:33 From PERCOCET Allergy Severe rash,n/v Uncoded 06/04/21 11:33 Home Medications Medication Instructions Recorded Confirmed Last Taken Type albuterol sulfate 90 mcg/actuation 1 puff INHALATION Q4-6H PRN 09/27/20 06/04/21 04/13/21 History aerosol inhaler amitriptyline 100 mg tablet 100 mg PO BEDTIME 09/27/20 06/04/21 Unknown History aspirin 81 mg tablet,delayed 81 mg PO DAILY 09/27/20 06/04/21 03/30/21 History release (Adult Aspirin Regimen) atorvastatin 40 mg tablet 40 mg PO BEDTIME 09/27/20 06/04/21 Unknown History baclofen 20 mg tablet 20 mg PO BID 09/27/20 06/04/21 Unknown History diazepam 2 mg tablet 2 mg PO BID 09/27/20 06/04/21 06/08/21 05:00 History diltiazem HCl 120 mg 120 mg PO DAILY 09/27/20 06/04/21 06/08/21 05:00 History capsule,extended release 24 hr famotidine 20 mg tablet 20 mg PO BID 09/27/20 06/04/21 06/08/21 05:00 History fluticasone propionate 50 0 mcg INTRANASAL PRN 09/27/20 10/11/20 Unknown History mcg/actuation nasal spray,suspension furosemide 20 mg tablet 10 mg PO DAILY 09/27/20 06/04/21 Unknown History ibuprofen 400 mg tablet 400 mg PO BID PRN 09/27/20 06/04/21 Unknown History lamotrigine 150 mg tablet 150 mg PO DAILY 09/27/20 06/04/21 Unknown History levocetirizine 5 mg tablet 5 mg PO DAILY 09/27/20 06/04/21 Unknown History levothyroxine 150 mcg tablet 150 mcg PO DAILY 09/27/20 06/04/21 06/08/21 05:00 History linaclotide 145 mcg capsule 290 mcg PO QAM 09/27/20 06/04/21 Unknown History lisinopril 10 mg tablet 10 mg PO DAILY 09/27/20 06/04/21 Unknown History montelukast 10 mg tablet 10 mg PO BEDTIME 09/27/20 06/04/21 Unknown History nystatin 100,000 unit/gram topical TOPICAL TID 09/27/20 10/11/20 Unknown History powder penciclovir 1 % topical cream appl TOPICAL 09/27/20 10/11/20 Unknown History metformin 500 mg tablet 500 mg PO BID 11/21/20 06/04/21 Unknown History budesonide-formoterol HFA 160 2 puff PO BID 11/24/20 06/04/21 11/24/20 07:00 History mcg-4.5 mcg/actuation aerosol inhaler (Symbicort) buspirone 5 mg tablet 1 tab PO TID 04/06/21 06/04/21 06/08/21 05:00 History zolpidem 5 mg tablet 1 tab PO BEDTIME 04/06/21 04/06/21 Unknown History Exam Exam Date and Time: June 07, 2021 1401 Height,Weight and Vital Signs: Height 5 ft 1 in Weight 108.862 kg Assessment and Plan Assessment Anesthesia Assessment: Chart Reviewed Final Anesthetic Review Family History of Problems with Anesthesia: No History of Problems with Anesthesia: No Documented by User: Richard Cifuentes MD 06/08/21 07:18 [facility] Past Medical History Medical History (Updated 06/04/21 @ 11:31 by Carla Duncan RN) Anxiety Arthritis Asthma Bipolar disorder COVID-19 vaccine series completed CVA (cerebral vascular accident) Depression Diabetes Fibromyalgia Hypertension Hypothyroid Insomnia Low back pain Lymphedema of left leg ALEJANDRO (obstructive sleep apnea) Sacroiliitis Surgical History Surgical History H/O arthroscopy of right knee History of endometrial ablation History of hernia surgery History of tonsillectomy and adenoidectomy Hx of appendectomy S/P tubal ligation Social History Social History Patient Tobacco Use Status: Never used Tobacco Are you DNR?: No Advance Directives: No Advance Directives Information Provided: No (mailed info) Advance Directives on File: No Meds Allergies Allergy/AdvReac Type Severity Reaction Status Date / Time lurasidone [Latuda] Allergy Severe Unknown Verified 06/04/21 11:33 morphine Allergy Severe Nausea and Verified 06/04/21 11:33 Vomiting codeine [CODEINE] Allergy Intermediate RASH Verified 06/04/21 11:33 duloxetine [Cymbalta] Allergy Intermediate rash, n/v Verified 06/04/21 11:33 milnacipran [Savella] Allergy Intermediate rash,nausea, Verified 06/04/21 11:33 vomiting Penicillins [PENICILLINS] Allergy Intermediate NAUSEA & Verified 06/04/21 11:33 VOMITING, rash/sick pregabalin Allergy Intermediate rash,n/v Verified 06/04/21 11:33 sulindac Allergy Intermediate Nausea, Verified 06/04/21 11:33 Vomiting amiloride Allergy Unknown Unknown Verified 06/04/21 11:33 hydrochlorothiazide Allergy Unknown Unknown Verified 06/04/21 11:33 From PERCOCET Allergy Severe rash,n/v Uncoded 06/04/21 11:33 Home Medications Medication Instructions Recorded Confirmed Last Taken Type albuterol sulfate 90 mcg/actuation 1 puff INHALATION Q4-6H PRN 09/27/20 06/04/21 04/13/21 History aerosol inhaler amitriptyline 100 mg tablet 100 mg PO BEDTIME 09/27/20 06/04/21 Unknown History aspirin 81 mg tablet,delayed 81 mg PO DAILY 09/27/20 06/04/21 03/30/21 History release (Adult Aspirin Regimen) atorvastatin 40 mg tablet 40 mg PO BEDTIME 09/27/20 06/04/21 Unknown History baclofen 20 mg tablet 20 mg PO BID 09/27/20 06/04/21 Unknown History diazepam 2 mg tablet 2 mg PO BID 09/27/20 06/04/21 06/08/21 05:00 History diltiazem HCl 120 mg 120 mg PO DAILY 09/27/20 06/04/21 06/08/21 05:00 History capsule,extended release 24 hr famotidine 20 mg tablet 20 mg PO BID 09/27/20 06/04/21 06/08/21 05:00 History fluticasone propionate 50 0 mcg INTRANASAL PRN 09/27/20 10/11/20 Unknown History mcg/actuation nasal spray,suspension furosemide 20 mg tablet 10 mg PO DAILY 09/27/20 06/04/21 Unknown History ibuprofen 400 mg tablet 400 mg PO BID PRN 09/27/20 06/04/21 Unknown History lamotrigine 150 mg tablet 150 mg PO DAILY 09/27/20 06/04/21 Unknown History levocetirizine 5 mg tablet 5 mg PO DAILY 09/27/20 06/04/21 Unknown History levothyroxine 150 mcg tablet 150 mcg PO DAILY 09/27/20 06/04/21 06/08/21 05:00 History linaclotide 145 mcg capsule 290 mcg PO QAM 09/27/20 06/04/21 Unknown History lisinopril 10 mg tablet 10 mg PO DAILY 09/27/20 06/04/21 Unknown History montelukast 10 mg tablet 10 mg PO BEDTIME 09/27/20 06/04/21 Unknown History nystatin 100,000 unit/gram topical TOPICAL TID 09/27/20 10/11/20 Unknown History powder penciclovir 1 % topical cream appl TOPICAL 09/27/20 10/11/20 Unknown History metformin 500 mg tablet 500 mg PO BID 11/21/20 06/04/21 Unknown History budesonide-formoterol HFA 160 2 puff PO BID 11/24/20 06/04/21 11/24/20 07:00 History mcg-4.5 mcg/actuation aerosol inhaler (Symbicort) buspirone 5 mg tablet 1 tab PO TID 04/06/21 06/04/21 06/08/21 05:00 History zolpidem 5 mg tablet 1 tab PO BEDTIME 04/06/21 04/06/21 Unknown History Exam Airway Mallampati Class: IV TM Dist: >3cm Neck ROM: Full Partial: Upper and Lower
[2021-06-08] VITALS (9 sets, daily range): BP systolic 115–148; BP diastolic 46–94; PULSE 82–94; RESP 18–20; TEMP 36.1–36.7; O2SAT 90–96
--- NOTE | ~2021-06-08 | FL_ITS ---
EXAMINATION: XR FLUOROSCOPY WITH IMAGES CLINICAL INFORMATION: STIM trial. COMPARISON: Pelvic radiograph done on 05/09/2021. TECHNIQUE: Fluoroscopy performed by Garfield Kaba. Fluoroscopy time: 0.6 minutes DAP: 4.51 mGycm2 Images: 3 FINDINGS: The spot radiographs were obtained at the time of the procedure centimeters from projecting over the right-sided sacrum. The visualized part of the hardware appear intact. FL/FL guidance in OR IMPRESSION: Fluoroscopic assistance is provided at the time of the electrode placement within the pelvis. Please refer to the operative report for further full details.
[2021-06-08] MEDS: Lactated Ringers 1,000 ML 100 ML IVCONT (07:08)
[2021-06-08 07:48] LABS: Glucose, Whole Blood 167 mg/dL (60-115)
--- NOTE | 2021-06-08 08:38 | MHC.SHP ---
Pre-Procedural Eval Section A Date of Service: 06/08/21 The patient is an INPATIENT: No Changes since office visit: Yes Patient answered all questions Section B Chief Complaint: sacroiliitis Details of Present Illness: as above Relevant Family History (Specify if Yes): No Relevant Social History: None Present Medications: see Short Stay Collaborative assessment Medical History: Significant History History of Previous Operations: Relevant previous surgery/procedure and date(s) (SI joint fusion) Allergies: Allergies Allergy/AdvReac Type Severity Reaction Status Date / Time lurasidone [Latuda] Allergy Severe Unknown Verified 06/04/21 11:33 morphine Allergy Severe Nausea and Verified 06/04/21 11:33 Vomiting codeine [CODEINE] Allergy Intermediate RASH Verified 06/04/21 11:33 duloxetine [Cymbalta] Allergy Intermediate rash, n/v Verified 06/04/21 11:33 milnacipran [Savella] Allergy Intermediate rash,nausea, Verified 06/04/21 11:33 vomiting Penicillins [PENICILLINS] Allergy Intermediate NAUSEA & Verified 06/04/21 11:33 VOMITING, rash/sick pregabalin Allergy Intermediate rash,n/v Verified 06/04/21 11:33 sulindac Allergy Intermediate Nausea, Verified 06/04/21 11:33 Vomiting amiloride Allergy Unknown Unknown Verified 06/04/21 11:33 hydrochlorothiazide Allergy Unknown Unknown Verified 06/04/21 11:33 From PERCOCET Allergy Severe rash,n/v Uncoded 06/04/21 11:33 Review of Systems Sugical H&P ROS: Negative: Cardiovascular, Respiratory, Neurological, Psychiatric, Hem-Onc, Allergic/Immunologic, Gastrointestinal, Genitourinary, Musculoskeletal, Integumentary, Endocrine and Eyes/Ears/Nose/Throat and Yes, Specify: Constitution (morbid obesity) Exam Surgical H&P Exam: Normal: HEENT and Significant Findings: Abdomen (enlarged 2 to fat) Plan Diagnosis/Plan: Unchanged I have reviewed the history and physical and performed a pertinent physical examination on my patient. No changes have occurred unless specified.
--- NOTE | 2021-06-08 08:56 | P.OP_ITS ---
Operative Note Operative Note Date of Service: 06/08/21 Narrative: Patient came to the operating room she was positioned prone on the operating table with the pillow under her pelvis.? [place] [employer] monitors were applied and patient was deeply sedated. Time out was performed delineated correct name and of the patient, site, side and nature of the procedure, risks of DVT and fire need for antibiotics. Her lower back and buttocks was prepped with ChloraPrep twice, and draped with sterile towels.? Sterilely draped C-arm was brought over the operating field and sq picture of patient's pelvis was demonstrated on the screen.? Attention was concentrated on the right SI joint. The sacral ala on the right was chosen as a target of the needle insertion. 3 cm above the sacral ala projection in the lumbar area injection of the local anes thetic was performed in the skin. Using 11 blade scalpel small vj in the skin was performed. 16 gauge introducer simwave malleable needle was inserted through the vj and advanced toward the sacral alae on the right.? After needle met the bone on sacral ala it was redirected slightly posterior and continued to advance alongside the curvature of the sacral bone.? When the tip of the needle reached the end of the projection of the sacroiliac joint inferiorly advancement stops and guitar wire was introduced into the needle.? It went through the needle without difficulties.? After that 8 electrode stimulating array lead was inserted through the needle and advanced to the desired position.? The needle was removed and care was taken not to dislodge the leads.? The driving stylet was removed from the lead and it was replaced with stimulating copper wire antenna electrode.? After that the knot was tied just below the level of the 2nd antenna electrode.? Mastisol was applied to the skin a and Steri-Strips was used to fix the stimulating lead to the skin.? Sterile dressing applied stimulating pad was applied and taped to the skin using Medipore tape Upon completion of the procedure the patient was awaken she was taking outside of the operating room to recovery room where she recovered uneventfully.? She went home without immediate complications.
--- NOTE | 2021-06-08 10:26 | PM.OP ---
Brief Operative Note Date of Service: 06/08/21 Pre-op diagnosis: Sacroiliitis, sacroiliac joint instability. Post-op diagnosis: same Procedure: Right Sacroiliac joint innervation stimulation-Stimwave Implants: None per Surgeon: Garfield Kaba MD Anesthesia: GETA Was an Circuit Manager used for this Procedure?: No Estimated blood loss (mL): 17 Pathology: none sent Condition: stable Disposition: PACU
== END 2021-06-08 12:05 ==
LOC: HO.SSS 06:40
PROVIDERS: Visit Provider Anesthesiology
PROC: (CPT 64451; principal; 2021-06-08 08:30)
DX: M46.1 Sacroiliitis, not elsewhere classified (principal); Z98.1 Arthrodesis status; M53.3 Sacrococcygeal disorders, not elsewhere classified; M54.50 Low back pain, unspecified; I69.354 Hemiplegia and hemiparesis following cerebral infarction affecting left non-dominant side; I10 Essential (primary) hypertension; E11.9 Type 2 diabetes mellitus without complications; E66.01 Morbid (severe) obesity due to excess calories; Z88.0 Allergy status to penicillin; Z88.8 Allergy status to other drugs, medicaments and biological substances
CPT/HCPCS: 64451; 82947; C1816; J1100; J2250; J2405; J2765; J3010

== ENCOUNTER → 2021-06-14 10:04 | Outpatient (BNVA) | payer MEDICARE, MEDICAID, SELFPAY | PROVIDERS: Visit Provider Anesthesiology | DX: M47.27 Other spondylosis with radiculopathy, lumbosacral region (principal); M53.3 Sacrococcygeal disorders, not elsewhere classified; M46.1 Sacroiliitis, not elsewhere classified | CPT/HCPCS: 99212 ==

== ENCOUNTER 2021-08-03 08:38 | Day surgery (SDC) | payer MEDICARE, MEDICAID, SELFPAY ==
[2021-07-30 11:55] VITALS: BMI 45.7
--- NOTE | 2021-08-01 12:17 | HO.ANESPROP2 ---
Documented by User: Farida Rhoades NP 08/01/21 12:19 HPI - Anesthesia Eval Consult details Narrative: 46yo F for Right Sacroiliac Joint Innervation Stimulation Implant s/p SI joint stim tiral 05/2021 with GA-ETT 7 *Multiple med allergies* PMFSH Active Problems Active Problems: All Active Problems (Updated 07/30/21 @ 12:00 by Carla Duncan, RN) Spondylosis of lumbosacral spine with radiculopathy (Acute) SI (sacroiliac) joint dysfunction (Acute) Sacroiliac joint dysfunction of left side (Acute) Sacroiliac joint dysfunction of right side (Acute) Sacroiliitis (Acute) Past Medical History Medical History (Updated 07/30/21 @ 12:00 by Carla Duncan, ZHANE) Anxiety Arthritis Asthma Bipolar disorder COVID-19 vaccine series completed CVA (cerebral vascular accident) Depression Diabetes Fibromyalgia Hypertension Hypothyroid Insomnia Low back pain Lymphedema of left leg ALEJANDRO (obstructive sleep apnea) Panic attack as reaction to stress Sacroiliac joint dysfunction of left side Sacroiliac joint dysfunction of right side Sacroiliitis Family History Family history of problems with anesthesia: No Surgical History Surgical History H/O arthroscopy of right knee History of endometrial ablation History of hernia surgery History of tonsillectomy and adenoidectomy Hx of appendectomy S/P tubal ligation History of Problems with Anesthesia: No Social History Social History Are you a primary director of medicare to a significant other at home: No Do you presently have visiting nurse or other home services: Yes (ADVERTISING ACCOUNT REPRESENTATIVE daily 8 hours) Patient Tobacco Use Status: Never used Tobacco Use of substances other than those prescribed or required for medical reasons: No Have you been hit, kicked, punched, or otherwise hurt by someone within the past year? If so, by whom?: No Are you DNR?: No Advance Directives: No Advance Directives Information Provided: Yes Advance Directives on File: No Recently lost weight without trying: No Patient : No Meds Allergies Allergy/AdvReac Type Severity Reaction Status Date / Time lurasidone [Latuda] Allergy Severe Unknown Verified 06/14/21 10:17 morphine Allergy Severe Nausea and Verified 06/14/21 10:17 Vomiting codeine [CODEINE] Allergy Intermediate RASH Verified 06/14/21 10:17 duloxetine [Cymbalta] Allergy Intermediate rash, n/v Verified 06/14/21 10:17 milnacipran [Savella] Allergy Intermediate rash,nausea, Verified 06/14/21 10:17 vomiting Penicillins [PENICILLINS] Allergy Intermediate NAUSEA & Verified 06/14/21 10:17 VOMITING, rash/sick pregabalin Allergy Intermediate rash,n/v Verified 06/14/21 10:17 sulindac Allergy Intermediate Nausea, Verified 06/14/21 10:17 Vomiting amiloride Allergy Unknown Unknown Verified 06/14/21 10:17 hydrochlorothiazide Allergy Unknown Unknown Verified 06/14/21 10:17 From PERCOCET Allergy Severe rash,n/v Uncoded 06/04/21 11:33 Home Medications Medication Instructions Recorded Confirmed Last Taken Type albuterol sulfate 90 mcg/actuation 1 puff INHALATION Q4-6H PRN 09/27/20 07/30/21 04/13/21 History aerosol inhaler amitriptyline 100 mg tablet 100 mg PO BEDTIME 09/27/20 07/30/21 Unknown History aspirin 81 mg tablet,delayed 81 mg PO DAILY 09/27/20 07/30/21 03/30/21 History release (Adult Aspirin Regimen) atorvastatin 40 mg tablet 40 mg PO DAILY 09/27/20 07/30/21 Unknown History baclofen 20 mg tablet 20 mg PO BID 09/27/20 07/30/21 Unknown History diazepam 2 mg tablet 2 mg PO BID 09/27/20 07/30/21 06/08/21 05:00 History diltiazem HCl 120 mg 120 mg PO DAILY 09/27/20 07/30/21 06/08/21 05:00 History capsule,extended release 24 hr famotidine 20 mg tablet 20 mg PO BID 09/27/20 07/30/21 06/08/21 05:00 History furosemide 20 mg tablet 10 mg PO DAILY 09/27/20 07/30/21 Unknown History ibuprofen 400 mg tablet 400 mg PO BID PRN 09/27/20 07/30/21 Unknown History lamotrigine 150 mg tablet 150 mg PO DAILY 09/27/20 07/30/21 Unknown History levocetirizine 5 mg tablet 5 mg PO DAILY 09/27/20 07/30/21 Unknown History levothyroxine 150 mcg tablet 150 mcg PO 5XW 09/27/20 07/30/21 06/08/21 05:00 History linaclotide 145 mcg capsule 290 mcg PO QAM 09/27/20 07/30/21 Unknown History lisinopril 10 mg tablet 10 mg PO DAILY 09/27/20 07/30/21 Unknown History montelukast 10 mg tablet 10 mg PO BEDTIME 09/27/20 07/30/21 Unknown History nystatin 100,000 unit/gram topical TOPICAL TID 09/27/20 10/11/20 Unknown History powder penciclovir 1 % topical cream appl TOPICAL 09/27/20 10/11/20 Unknown History metformin 500 mg tablet 500 mg PO BID 11/21/20 07/30/21 Unknown History budesonide-formoterol HFA 160 2 puff PO BID 11/24/20 07/30/21 11/24/20 07:00 History mcg-4.5 mcg/actuation aerosol inhaler (Symbicort) buspirone 5 mg tablet 1 tab PO TID 04/06/21 07/30/21 06/08/21 05:00 History zolpidem 5 mg tablet 1 tab PO BEDTIME 04/06/21 07/30/21 Unknown History glyburide 2.5 mg tablet 1 tab PO DAILY 07/30/21 07/30/21 Unknown History levothyroxine 300 mcg tablet 300 mcg PO 2XW 07/30/21 07/30/21 Unknown History Exam Exam Date and Time: August 01, 2021 1217 Height,Weight and Vital Signs: Height 5 ft 2 in Weight 113.398 kg Assessment and Plan Assessment Anesthesia Assessment: Chart Reviewed Final Anesthetic Review Family History of Problems with Anesthesia: No History of Problems with Anesthesia: No Documented by User: Thai Shah 08/03/21 09:33 HPI - Anesthesia Eval Consult details Narrative: 46yo F for Right Sacroiliac Joint Innervation Stimulation Implant s/p SI joint stim tiral 05/2021 with GA-ETT 7 *Multiple med allergies* stroke in 2015 , weakness on left side . [facility] Past Medical History Medical History (Updated 07/30/21 @ 12:00 by Carla Duncan, ZHANE) Anxiety Arthritis Asthma Bipolar disorder COVID-19 vaccine series completed CVA (cerebral vascular accident) Depression Diabetes Fibromyalgia Hypertension Hypothyroid Insomnia Low back pain Lymphedema of left leg ALEJANDRO (obstructive sleep apnea) Panic attack as reaction to stress Sacroiliac joint dysfunction of left side Sacroiliac joint dysfunction of right side Sacroiliitis Surgical History Surgical History H/O arthroscopy of right knee History of endometrial ablation History of hernia surgery History of tonsillectomy and adenoidectomy Hx of appendectomy S/P tubal ligation Social History Social History Are you a primary director of medicare to a significant other at home: No Do you presently have visiting nurse or other home services: Yes (ADVERTISING ACCOUNT REPRESENTATIVE daily 8 hours) Patient Tobacco Use Status: Never used Tobacco Use of substances other than those prescribed or required for medical reasons: No Have you been hit, kicked, punched, or otherwise hurt by someone within the past year? If so, by whom?: No Are you DNR?: No Advance Directives: No Advance Directives Information Provided: Yes Advance Directives on File: No Recently lost weight without trying: No Patient : No Meds Allergies Allergy/AdvReac Type Severity Reaction Status Date / Time lurasidone [Latuda] Allergy Severe Unknown Verified 06/14/21 10:17 morphine Allergy Severe Nausea and Verified 06/14/21 10:17 Vomiting codeine [CODEINE] Allergy Intermediate RASH Verified 06/14/21 10:17 duloxetine [Cymbalta] Allergy Intermediate rash, n/v Verified 06/14/21 10:17 milnacipran [Savella] Allergy Intermediate rash,nausea, Verified 06/14/21 10:17 vomiting Penicillins [PENICILLINS] Allergy Intermediate NAUSEA & Verified 06/14/21 10:17 VOMITING, rash/sick pregabalin Allergy Intermediate rash,n/v Verified 06/14/21 10:17 sulindac Allergy Intermediate Nausea, Verified 06/14/21 10:17 Vomiting amiloride Allergy Unknown Unknown Verified 06/14/21 10:17 hydrochlorothiazide Allergy Unknown Unknown Verified 06/14/21 10:17 From PERCOCET Allergy Severe rash,n/v Uncoded 06/04/21 11:33 Home Medications Medication Instructions Recorded Confirmed Last Taken Type albuterol sulfate 90 mcg/actuation 1 puff INHALATION Q4-6H PRN 09/27/20 07/30/21 04/13/21 History aerosol inhaler amitriptyline 100 mg tablet 100 mg PO BEDTIME 09/27/20 07/30/21 Unknown History aspirin 81 mg tablet,delayed 81 mg PO DAILY 09/27/20 07/30/21 03/30/21 History release (Adult Aspirin Regimen) atorvastatin 40 mg tablet 40 mg PO DAILY 09/27/20 07/30/21 Unknown History baclofen 20 mg tablet 20 mg PO BID 09/27/20 07/30/21 Unknown History diazepam 2 mg tablet 2 mg PO BID 09/27/20 07/30/21 06/08/21 05:00 History diltiazem HCl 120 mg 120 mg PO DAILY 09/27/20 07/30/21 06/08/21 05:00 History capsule,extended release 24 hr famotidine 20 mg tablet 20 mg PO BID 09/27/20 07/30/21 06/08/21 05:00 History furosemide 20 mg tablet 10 mg PO DAILY 09/27/20 07/30/21 Unknown History ibuprofen 400 mg tablet 400 mg PO BID PRN 09/27/20 07/30/21 Unknown History lamotrigine 150 mg tablet 150 mg PO DAILY 09/27/20 07/30/21 Unknown History levocetirizine 5 mg tablet 5 mg PO DAILY 09/27/20 07/30/21 Unknown History levothyroxine 150 mcg tablet 150 mcg PO 5XW 09/27/20 07/30/21 06/08/21 05:00 History linaclotide 145 mcg capsule 290 mcg PO QAM 09/27/20 07/30/21 Unknown History lisinopril 10 mg tablet 10 mg PO DAILY 09/27/20 07/30/21 Unknown History montelukast 10 mg tablet 10 mg PO BEDTIME 09/27/20 07/30/21 Unknown History nystatin 100,000 unit/gram topical TOPICAL TID 09/27/20 10/11/20 Unknown History powder penciclovir 1 % topical cream appl TOPICAL 09/27/20 10/11/20 Unknown History metformin 500 mg tablet 500 mg PO BID 11/21/20 07/30/21 Unknown History budesonide-formoterol HFA 160 2 puff PO BID 11/24/20 07/30/21 11/24/20 07:00 History mcg-4.5 mcg/actuation aerosol inhaler (Symbicort) buspirone 5 mg tablet 1 tab PO TID 04/06/21 07/30/21 06/08/21 05:00 History zolpidem 5 mg tablet 1 tab PO BEDTIME 04/06/21 07/30/21 Unknown History glyburide 2.5 mg tablet 1 tab PO DAILY 07/30/21 07/30/21 Unknown History levothyroxine 300 mcg tablet 300 mcg PO 2XW 07/30/21 07/30/21 Unknown History Exam Airway Mallampati Class: III Partial: Upper and Lower Loose/Missing/Broken Teeth: Yes Assessment and Plan Final Anesthetic Review NPO: Yes ASA Class: III Final Preanesthetic Review: Meds/Allgs Chart Reviewed Patient Risk: High Procedure Risk: Intermediate Anesthetic Plan Anesthetic Plan: GA Disposition: Standard PACU
[2021-08-03] VITALS (9 sets, daily range): BP systolic 104–131; BP diastolic 61–94; PULSE 84–95; RESP 16–20; TEMP 35.8–36.8; O2SAT 93–97
--- NOTE | ~2021-08-03 | FL_ITS ---
EXAMINATION: XR FLUOROSCOPY WITH IMAGES CLINICAL INFORMATION: Stimulator trial. COMPARISON: None. TECHNIQUE: Fluoroscopy performed by Dr. Garfield Kaba Fluoroscopy time: 1 minutes DAP: 25.5 mGy-cm2 Images: 2 FINDINGS: There are 2 images obtained in OR. There are 2 cyst stimulator implants seen overlying the right sacral ala. Visualized bones are grossly unremarkable. FL/FL guidance in OR IMPRESSION: Fluoroscopy was provided to Dr. Kaba during pain management.
--- NOTE | 2021-08-03 08:37 | MHC.SHP ---
Pre-Procedural Eval Section A Date of Service: 08/03/21 The patient is an INPATIENT: No Changes since office visit: Yes Patient answered all questions The History & Physical has been completed within 30 days and I have reviewed it.: No Section B Chief Complaint: Sacroiliac joint dysfunction of right side Details of Present Illness: the same as above Relevant Family History (Specify if Yes): No Relevant Social History: Other (specify) Present Medications: see Short Stay Collaborative assessment Medical History: No relevant PMH History of Previous Operations: Relevant previous surgery/procedure and date(s) (attempt of SI joint fusion on the right with allograft dislodgement) Allergies: Allergies Allergy/AdvReac Type Severity Reaction Status Date / Time lurasidone [Latuda] Allergy Severe Unknown Verified 06/14/21 10:17 morphine Allergy Severe Nausea and Verified 06/14/21 10:17 Vomiting codeine [CODEINE] Allergy Intermediate RASH Verified 06/14/21 10:17 duloxetine [Cymbalta] Allergy Intermediate rash, n/v Verified 06/14/21 10:17 milnacipran [Savella] Allergy Intermediate rash,nausea, Verified 06/14/21 10:17 vomiting Penicillins [PENICILLINS] Allergy Intermediate NAUSEA & Verified 06/14/21 10:17 VOMITING, rash/sick pregabalin Allergy Intermediate rash,n/v Verified 06/14/21 10:17 sulindac Allergy Intermediate Nausea, Verified 06/14/21 10:17 Vomiting amiloride Allergy Unknown Unknown Verified 06/14/21 10:17 hydrochlorothiazide Allergy Unknown Unknown Verified 06/14/21 10:17 From PERCOCET Allergy Severe rash,n/v Uncoded 06/04/21 11:33 Review of Systems Sugical H&P ROS: Negative: Cardiovascular, Respiratory, Neurological, Psychiatric, Hem-Onc, Allergic/Immunologic, Gastrointestinal, Musculoskeletal, Integumentary, Endocrine and Eyes/Ears/Nose/Throat and Yes, Specify: Constitution and Genitourinary (sacroiliitis) Exam Surgical H&P Exam: Normal: HEENT, Normal: Heart, Normal: Lungs, Normal: Extremities, Normal: Skin and Normal: Neurological and Significant Findings: Abdomen (enlarged due to s/q and intaabd. fat) Plan I have reviewed the history and physical and performed a pertinent physical examination on my patient. No changes have occurred unless specified.
[2021-08-03 09:30] LABS: Glucose, Whole Blood 133 mg/dL (60-115)
[2021-08-03] MEDS: Lactated Ringers 1,000 ML 100 ML IVCONT (09:46)
--- NOTE | 2021-08-03 12:07 | P.BOP_ITS ---
Brief Operative Note Date of Service: 08/03/21 Pre-op diagnosis: Sacroiliitis Post-op diagnosis: same Procedure: SI joint innervation PNS Stimwave Implants: 2 stimulating leads Stimwave. Surgeon: Garfield Kaba MD Anesthesia: GETA Was an Document Image Technician used for this Procedure?: No Estimated blood loss (mL): 10 Pathology: none sent Condition: stable Disposition: PACU
[2021-08-03] MEDS: ondansetron HCL 4 MG/2 ML VIAL IVPUSH (12:40)
[2021-08-03] MEDS: Acetaminophen 325 MG TABLET 650 MG PO (12:47)
--- NOTE | 2021-08-03 13:02 | W.PM.OPN ---
Operative Note Operative Note Date of Service: 08/03/21 Narrative: ?After obtaining informed consent the patient was brought to the operating room, she was positioned supine on the stretcher ASA m-rs were applied and the patient was induced with GETA. She was transfered on the ORT and all pressure points were protected. ?Time-out was performed delineating correct site, side, the nature of the procedure, patient's allergy, preoperative antibiotic.? All operating room staff was participating in OR time-out procedure.? The patient received cefazolin 3 gr. intravenously 30 minutes before the procedure ? After appropriate level of sedation was obtained the patient's entire back? was prepped with ChloraPrep twice. Whole body drape was applied including Ioban film.? Sterilely draped C-arm was brought over the operating field and sq picture of right side of the pelvis was demonstrated on the screen. 4 cm above from the patient's right sacral ala projection the skin was infiltrated in linear vertical fashion and 15 blade scalpel was used to make an horizontal incision on the skin 4 cm long. The wound was widened and deepened intil the superficial layer of thoracolumbar fascia. 16 g 15 cm introducer malleable needle was inserted through the fascia and advanced to the right sacral ala. when the position of the tip of the introducer needle was verified on the lateral view above the level of the bone,? the needle advanced alongside the sacral bone curvature following the direction of the silhouette of the sacroilic joint.? permanent stimulator catheter was inserted and advanced in the needle? When the body of the lead? reached adequate position the stirring stilet was removed from the lead and a conduction copper wire was inserted into the lead and advanced until resistance was met. The introducer needle was withdrawn with care taken not to dislodge the stimulating lead. After that - one more stimulating lead was inserted into slightly more medial position and more proximal position 1 cm to the lateral side from the first stimulating lead using the same technique as described above. The wound was irrigated with vancomycin containing normal saline. After that in the upper lumbar paraspinal area local anesthetic was injected into the skin and the vertical 2 cm incision was made using 10 blade scalpel. This wound was widened and deepened using dull dissection and hemostasis was performed using electrocautery. After that this wound was irrigated with vancomycin containing normal saline and? tunneling device was used to connect the two wounds. The tales of the stimulating electrodes were tunneled from the distal wound to the proximal wound and tunneling device was split and withdrawn. Care was taken to form straight position of the stimulating leads. After that the ends of the plastic leads were tide on itself and then the coil was? formed from the free ends of the? two plastic leads using free silk suture knots. the coil was inserted into the wound. After that both wounds were irrigated again, they were closed using 0-2 polisorb sutures, daria were applied to the skin level. Bacitracin ointment was applied on the suture lines and the sterile dressings were affixed on the both wounds. The patient was awaken, transferred to PACU, where she recovered uneventfully. ?
== END 2021-08-03 14:23 | disposition home or self-care (01) ==
PROVIDERS: Visit Provider Anesthesiology
PROC: (CPT 64555; principal; 2021-08-03 10:30)
DX: M53.3 Sacrococcygeal disorders, not elsewhere classified (principal); M46.1 Sacroiliitis, not elsewhere classified; M54.50 Low back pain, unspecified; M47.27 Other spondylosis with radiculopathy, lumbosacral region; E11.9 Type 2 diabetes mellitus without complications; I69.354 Hemiplegia and hemiparesis following cerebral infarction affecting left non-dominant side; I10 Essential (primary) hypertension; G47.33 Obstructive sleep apnea (adult) (pediatric); F31.9 Bipolar disorder, unspecified; F41.8 Other specified anxiety disorders; Z99.89 Dependence on other enabling machines and devices; Z79.84 Long term (current) use of oral hypoglycemic drugs; Z79.899 Other long term (current) drug therapy; Z88.0 Allergy status to penicillin; Z88.8 Allergy status to other drugs, medicaments and biological substances
CPT/HCPCS: 64555; 82947; C1816; J1100; J2250; J2370; J2405; J3010; J3370

== ENCOUNTER → 2021-08-09 08:36 | Outpatient (BNVA) | payer MEDICARE, MEDICAID, SELFPAY | PROVIDERS: Visit Provider Anesthesiology | DX: M47.27 Other spondylosis with radiculopathy, lumbosacral region (principal); M53.3 Sacrococcygeal disorders, not elsewhere classified; M46.1 Sacroiliitis, not elsewhere classified; Z96.82 Presence of neurostimulator | CPT/HCPCS: 99212 ==

== ENCOUNTER → 2021-08-16 08:38 | Outpatient (BNVA) | payer MEDICARE, MEDICAID, SELFPAY | PROVIDERS: Visit Provider Anesthesiology | DX: M47.27 Other spondylosis with radiculopathy, lumbosacral region (principal); M53.3 Sacrococcygeal disorders, not elsewhere classified; M46.1 Sacroiliitis, not elsewhere classified | CPT/HCPCS: 99212 ==

== ENCOUNTER 2021-08-24 06:02 | Day surgery (SDC) | payer MEDICARE, MEDICAID, SELFPAY ==
[2021-08-14 19:57] VITALS: BMI 47.2
--- NOTE | 2021-08-23 16:36 | P.CONAN_ITS ---
Documented by User: Farida Rhoades NP 08/23/21 16:37 HPI - Anesthesia Eval Consult details Narrative: 46yo F for Left Sacroiliac Joint Innervation Stimulation Trial s/p SI joint stim implant 07/2021 with GA-ETT 7 *Multiple med allergies* stroke in 2015 , weakness on left side . PMFSH Active Problems Active Problems: All Active Problems (Updated 08/14/21 @ 19:41 by Cirea Valerio RN) Spondylosis of lumbosacral spine with radiculopathy (Acute) SI (sacroiliac) joint dysfunction (Acute) Sacroiliac joint dysfunction of left side (Acute) Sacroiliac joint dysfunction of right side (Acute) Sacroiliitis (Acute) Past Medical History Medical History Anxiety Arthritis Asthma Bipolar disorder COVID-19 vaccine series completed CVA (cerebral vascular accident) Depression Diabetes Fibromyalgia History of blood transfusion Hypertension Hypothyroid Insomnia Low back pain Lymphedema of left leg Migraine ALEJANDRO (obstructive sleep apnea) Panic attack as reaction to stress Sacroiliac joint dysfunction of left side Sacroiliac joint dysfunction of right side Sacroiliitis Status post insertion of nerve stimulator Family History Family history of problems with anesthesia: No Surgical History Surgical History H/O arthroscopy of right knee History of endometrial ablation History of hernia surgery History of tonsillectomy and adenoidectomy Hx of appendectomy S/P tubal ligation History of Problems with Anesthesia: No Social History Social History Are you a primary home care administrator to a significant other at home: No Do you presently have visiting nurse or other home services: Yes ([employer] daily 8 hours) Patient Tobacco Use Status: Never used Tobacco Use of substances other than those prescribed or required for medical reasons: No Are you DNR?: No Advance Directives: No Advance Directives Information Provided: No Advance Directives on File: No Recently lost weight without trying: No Nutrition Risks: No Nutritional Risk Patient : No Meds Allergies Allergy/AdvReac Type Severity Reaction Status Date / Time lurasidone [Latuda] Allergy Severe Unknown Verified 08/16/21 08:53 morphine Allergy Severe Nausea and Verified 08/16/21 08:53 Vomiting codeine [CODEINE] Allergy Intermediate RASH Verified 08/16/21 08:53 duloxetine [Cymbalta] Allergy Intermediate rash, n/v Verified 08/16/21 08:53 milnacipran [Savella] Allergy Intermediate rash,nausea, Verified 08/16/21 08:53 vomiting Penicillins [PENICILLINS] Allergy Intermediate NAUSEA & Verified 08/16/21 08:53 VOMITING, rash/sick pregabalin Allergy Intermediate rash,n/v Verified 08/16/21 08:53 sulindac Allergy Intermediate Nausea, Verified 08/16/21 08:53 Vomiting amiloride Allergy Unknown Unknown Verified 08/16/21 08:53 hydrochlorothiazide Allergy Unknown Unknown Verified 08/16/21 08:53 From PERCOCET Allergy Severe rash,n/v Uncoded 08/09/21 09:30 Home Medications Medication Instructions Recorded Confirmed Last Taken Type albuterol sulfate 90 mcg/actuation 1 puff INHALATION Q4-6H PRN 09/27/20 08/14/21 04/13/21 History aerosol inhaler amitriptyline 100 mg tablet 100 mg PO BEDTIME 09/27/20 08/14/21 Unknown History aspirin 81 mg tablet,delayed 81 mg PO DAILY 09/27/20 08/14/21 03/30/21 History release (Adult Aspirin Regimen) atorvastatin 40 mg tablet 40 mg PO DAILY 09/27/20 08/14/21 Unknown History baclofen 20 mg tablet 20 mg PO BID 09/27/20 08/14/21 Unknown History diazepam 2 mg tablet 2 mg PO BID 09/27/20 08/14/21 08/24/21 History diltiazem HCl 120 mg 120 mg PO DAILY 09/27/20 08/14/21 08/24/21 History capsule,extended release 24 hr famotidine 20 mg tablet 20 mg PO BID 09/27/20 08/14/21 08/24/21 History furosemide 20 mg tablet 10 mg PO DAILY 09/27/20 08/14/21 Unknown History ibuprofen 400 mg tablet 400 mg PO BID PRN 09/27/20 08/14/21 Unknown History lamotrigine 150 mg tablet 150 mg PO DAILY 09/27/20 08/14/21 Unknown History levocetirizine 5 mg tablet 5 mg PO DAILY 09/27/20 08/14/21 Unknown History levothyroxine 150 mcg tablet 150 mcg PO 5XW 09/27/20 08/14/21 08/24/21 History linaclotide 145 mcg capsule 290 mcg PO QAM 09/27/20 08/14/21 Unknown History lisinopril 10 mg tablet 10 mg PO DAILY 09/27/20 08/14/21 Unknown History montelukast 10 mg tablet 10 mg PO BEDTIME 09/27/20 08/14/21 Unknown History nystatin 100,000 unit/gram topical 1 appl TOPICAL TID 09/27/20 08/14/21 Unknown History powder penciclovir 1 % topical cream 1 appl TOPICAL DAILY 09/27/20 08/14/21 Unknown History metformin 500 mg tablet 500 mg PO BID 11/21/20 08/14/21 Unknown History budesonide-formoterol HFA 160 2 puff PO BID 11/24/20 08/14/21 11/24/20 07:00 History mcg-4.5 mcg/actuation aerosol inhaler (Symbicort) buspirone 5 mg tablet 1 tab PO TID 04/06/21 08/14/21 08/24/21 History zolpidem 5 mg tablet 1 tab PO BEDTIME 04/06/21 08/14/21 Unknown History glyburide 2.5 mg tablet 1 tab PO DAILY 07/30/21 08/14/21 Unknown History levothyroxine 300 mcg tablet 300 mcg PO 2XW 07/30/21 08/14/21 Unknown History Exam Exam Date and Time: August 23, 2021 1636 Height,Weight and Vital Signs: Height 5 ft 1 in Weight 113.398 kg Assessment and Plan Assessment Anesthesia Assessment: Chart Reviewed Final Anesthetic Review Family History of Problems with Anesthesia: No History of Problems with Anesthesia: No Documented by User: Thai Shah 08/24/21 08:01 COUNT INCLUDES THE [facility] Past Medical History Medical History Anxiety Arthritis Asthma Bipolar disorder COVID-19 vaccine series completed CVA (cerebral vascular accident) Depression Diabetes Fibromyalgia History of blood transfusion Hypertension Hypothyroid Insomnia Low back pain Lymphedema of left leg Migraine ALEJANDRO (obstructive sleep apnea) Panic attack as reaction to stress Sacroiliac joint dysfunction of left side Sacroiliac joint dysfunction of right side Sacroiliitis Status post insertion of nerve stimulator Surgical History Surgical History H/O arthroscopy of right knee History of endometrial ablation History of hernia surgery History of tonsillectomy and adenoidectomy Hx of appendectomy S/P tubal ligation Social History Social History Are you a primary home care administrator to a significant other at home: No Do you presently have visiting nurse or other home services: Yes ([employer] daily 8 hours) Patient Tobacco Use Status: Never used Tobacco Use of substances other than those prescribed or required for medical reasons: No Are you DNR?: No Advance Directives: No Advance Directives Information Provided: No Advance Directives on File: No Recently lost weight without trying: No Nutrition Risks: No Nutritional Risk Patient : No Meds Allergies Allergy/AdvReac Type Severity Reaction Status Date / Time lurasidone [Latuda] Allergy Severe Unknown Verified 08/16/21 08:53 morphine Allergy Severe Nausea and Verified 08/16/21 08:53 Vomiting codeine [CODEINE] Allergy Intermediate RASH Verified 08/16/21 08:53 duloxetine [Cymbalta] Allergy Intermediate rash, n/v Verified 08/16/21 08:53 milnacipran [Savella] Allergy Intermediate rash,nausea, Verified 08/16/21 08:53 vomiting Penicillins [PENICILLINS] Allergy Intermediate NAUSEA & Verified 08/16/21 08:53 VOMITING, rash/sick pregabalin Allergy Intermediate rash,n/v Verified 08/16/21 08:53 sulindac Allergy Intermediate Nausea, Verified 08/16/21 08:53 Vomiting amiloride Allergy Unknown Unknown Verified 08/16/21 08:53 hydrochlorothiazide Allergy Unknown Unknown Verified 08/16/21 08:53 From PERCOCET Allergy Severe rash,n/v Uncoded 08/09/21 09:30 Home Medications Medication Instructions Recorded Confirmed Last Taken Type albuterol sulfate 90 mcg/actuation 1 puff INHALATION Q4-6H PRN 09/27/20 08/14/21 04/13/21 History aerosol inhaler amitriptyline 100 mg tablet 100 mg PO BEDTIME 09/27/20 08/14/21 Unknown History aspirin 81 mg tablet,delayed 81 mg PO DAILY 09/27/20 08/14/21 03/30/21 History release (Adult Aspirin Regimen) atorvastatin 40 mg tablet 40 mg PO DAILY 09/27/20 08/14/21 Unknown History baclofen 20 mg tablet 20 mg PO BID 09/27/20 08/14/21 Unknown History diazepam 2 mg tablet 2 mg PO BID 09/27/20 08/14/21 08/24/21 History diltiazem HCl 120 mg 120 mg PO DAILY 09/27/20 08/14/21 08/24/21 History capsule,extended release 24 hr famotidine 20 mg tablet 20 mg PO BID 09/27/20 08/14/21 08/24/21 History furosemide 20 mg tablet 10 mg PO DAILY 09/27/20 08/14/21 Unknown History ibuprofen 400 mg tablet 400 mg PO BID PRN 09/27/20 08/14/21 Unknown History lamotrigine 150 mg tablet 150 mg PO DAILY 09/27/20 08/14/21 Unknown History levocetirizine 5 mg tablet 5 mg PO DAILY 09/27/20 08/14/21 Unknown History levothyroxine 150 mcg tablet 150 mcg PO 5XW 09/27/20 08/14/21 08/24/21 History linaclotide 145 mcg capsule 290 mcg PO QAM 09/27/20 08/14/21 Unknown History lisinopril 10 mg tablet 10 mg PO DAILY 09/27/20 08/14/21 Unknown History montelukast 10 mg tablet 10 mg PO BEDTIME 09/27/20 08/14/21 Unknown History nystatin 100,000 unit/gram topical 1 appl TOPICAL TID 09/27/20 08/14/21 Unknown History powder penciclovir 1 % topical cream 1 appl TOPICAL DAILY 09/27/20 08/14/21 Unknown History metformin 500 mg tablet 500 mg PO BID 11/21/20 08/14/21 Unknown History budesonide-formoterol HFA 160 2 puff PO BID 11/24/20 08/14/21 11/24/20 07:00 History mcg-4.5 mcg/actuation aerosol inhaler (Symbicort) buspirone 5 mg tablet 1 tab PO TID 04/06/21 08/14/21 08/24/21 History zolpidem 5 mg tablet 1 tab PO BEDTIME 04/06/21 08/14/21 Unknown History glyburide 2.5 mg tablet 1 tab PO DAILY 07/30/21 08/14/21 Unknown History levothyroxine 300 mcg tablet 300 mcg PO 2XW 07/30/21 08/14/21 Unknown History Exam Airway Mallampati Class: III Neck ROM: Full Partial: Upper and Lower Loose/Missing/Broken Teeth: Yes Heart: rrr Lungs: bl breath sounds Assessment and Plan Final Anesthetic Review NPO: Yes ASA Class: III Patient Risk: Intermediate Procedure Risk: Intermediate Anesthetic Plan Anesthetic Plan: GA Disposition: Standard PACU
[2021-08-24] VITALS (8 sets, daily range): BP systolic 122–164; BP diastolic 69–100; PULSE 90–104; RESP 16–20; TEMP 36.1–36.4; O2SAT 92–97
--- NOTE | ~2021-08-24 | FL_ITS ---
EXAMINATION: XR FLUOROSCOPY WITH IMAGES CLINICAL INFORMATION: Stimulator trial. COMPARISON: 08/03/2021 TECHNIQUE: Fluoroscopy performed by Dr. Garfield Kaba. Fluoroscopy time: 0.2 minutes DAP: 2.32 Gycm2 Images: 3 FINDINGS: Three C-arm images performed demonstrate placement of 2 stimulator wires over the right sacrum and 1 overlying the left sacrum. FL/FL guidance in OR IMPRESSION: Bilateral nerve stimulator wires overlying the sacrum.
[2021-08-24] MEDS: Lactated Ringers 1,000 ML 100 ML IVCONT (06:30)
[2021-08-24 06:36] LABS: Glucose, Whole Blood 151 mg/dL (60-115)
--- NOTE | 2021-08-24 08:27 | MHC.SHP ---
Pre-Procedural Eval Section A Date of Service: 08/24/21 The patient is an INPATIENT: No Changes since office visit: Yes Patient answered all questions The History & Physical has been completed within 30 days and I have reviewed it.: No Section B Chief Complaint: Sacroiliac joint dysfunction, Left side Details of Present Illness: As above Relevant Family History (Specify if Yes): No Relevant Social History: None Present Medications: see Short Stay Collaborative assessment Medical History: Significant History History of Previous Operations: No relevant previous surgery Allergies: Allergies Allergy/AdvReac Type Severity Reaction Status Date / Time lurasidone [Latuda] Allergy Severe Unknown Verified 08/16/21 08:53 morphine Allergy Severe Nausea and Verified 08/16/21 08:53 Vomiting codeine [CODEINE] Allergy Intermediate RASH Verified 08/16/21 08:53 duloxetine [Cymbalta] Allergy Intermediate rash, n/v Verified 08/16/21 08:53 milnacipran [Savella] Allergy Intermediate rash,nausea, Verified 08/16/21 08:53 vomiting Penicillins [PENICILLINS] Allergy Intermediate NAUSEA & Verified 08/16/21 08:53 VOMITING, rash/sick pregabalin Allergy Intermediate rash,n/v Verified 08/16/21 08:53 sulindac Allergy Intermediate Nausea, Verified 08/16/21 08:53 Vomiting amiloride Allergy Unknown Unknown Verified 08/16/21 08:53 hydrochlorothiazide Allergy Unknown Unknown Verified 08/16/21 08:53 From PERCOCET Allergy Severe rash,n/v Uncoded 08/09/21 09:30 Review of Systems Sugical H&P ROS: Negative: Cardiovascular, Respiratory, Neurological, Psychiatric, Hem-Onc, Allergic/Immunologic, Gastrointestinal, Genitourinary, Musculoskeletal, Integumentary, Endocrine and Eyes/Ears/Nose/Throat and Yes, Specify: Constitution Exam Surgical H&P Exam: Normal: HEENT, Normal: Heart, Normal: Lungs, Normal: Extremities, Normal: Abdomen, Normal: Skin and Normal: Neurological Plan Diagnosis/Plan: Unchanged I have reviewed the history and physical and performed a pertinent physical examination on my patient. No changes have occurred unless specified.
--- NOTE | 2021-08-24 10:15 | PM.OP ---
Brief Operative Note Date of Service: 08/24/21 Pre-op diagnosis: Sacroiliitis Post-op diagnosis: same Procedure: trial of sacroiliac joint innervation stimulation with stim wave technology Implants: none permanent Surgeon: Garfield Kaba MD Was an Manual Training Teacher used for this Procedure?: No Estimated blood loss (mL): 1 Pathology: none sent Condition: stable Disposition: PACU
--- NOTE | 2021-08-24 10:17 | P.OP_ITS ---
Operative Note Operative Note Date of Service: 06/08/21 Narrative: Patient came to the operating room she was positioned supine on the stretcher, [employer] monitors were applied and general endotracheal on anesthesia was induced. The patient was transferred to on the operating table with the pillow under her pelvis.? [employer] monitors were reapplied. All pressure points were protected. Time out was performed delineated correct name and of the patient, site, side and nature of the procedure, risks of DVT and fire, need for antibiotics. Her lower back and buttocks was prepped with ChloraPrep twice, and draped with full body fenestrated drape.? Sterilely draped C-arm was brought over the operating field and sq picture of patient's pelvis was demonstrated on the screen.? Attention was concentrated on the Left SI joint. The sacral ala on the left was chosen as a target of the needle insertion. 3 cm above the sacral ala projection in the lumbar area injection of the local anesthetic was performed in the skin. Using 11 blade scalpel small vj in the skin was performed. 16 gauge introducer simwave malleable needle was inserted through the vj and advanced toward the sacral alae on the right.? After needle met the bone on sacral ala it was redirected slightly posterior and continued to advance alongside the curvature of the sacral bone.? When the tip of the needle reached the end of the projection of the sacroiliac joint inferiorly advancement stops and guitar wire was introduced into the needle.? It went through the needle without difficulties.? After that 8 electrode stimulating array lead was inserted through the needle and advanced to the desired position.? The needle was removed and care was taken not to dislodge the leads.? The driving stylet was removed from the lead and it was replaced with stimulating copper wire antenna electrode.? After that the knot was tied just below the level of the 2nd antenna electrode.? Mastisol was applied to the skin a and Steri-Strips was used to fix the stimulating lead to the skin.? Sterile dressing applied stimulating pad was applied and taped to the skin using Medipore tape Upon completion of the procedure the patient was awaken, she was taken outside of the operating room to recovery room where she recovered uneventfully.? She went home without immediate complications.
== END 2021-08-24 14:34 | disposition home or self-care (01) ==
PROVIDERS: Visit Provider Anesthesiology
PROC: (CPT 64561; principal; 2021-08-24 08:20)
DX: M47.27 Other spondylosis with radiculopathy, lumbosacral region (principal); M53.3 Sacrococcygeal disorders, not elsewhere classified; M46.1 Sacroiliitis, not elsewhere classified; M54.50 Low back pain, unspecified; I10 Essential (primary) hypertension; E11.9 Type 2 diabetes mellitus without complications; J45.909 Unspecified asthma, uncomplicated; G47.33 Obstructive sleep apnea (adult) (pediatric); F32.9 Major depressive disorder, single episode, unspecified; Z86.73 Personal history of transient ischemic attack (TIA), and cerebral infarction without residual deficits; Z79.84 Long term (current) use of oral hypoglycemic drugs; Z79.899 Other long term (current) drug therapy; Z88.0 Allergy status to penicillin; Z88.8 Allergy status to other drugs, medicaments and biological substances
CPT/HCPCS: 64561; 82947; C1816; J1100; J2250; J2405; J2765; J3010

== ENCOUNTER → 2021-08-30 09:09 | Outpatient (BNVA) | payer MEDICARE, MEDICAID, SELFPAY | PROVIDERS: Visit Provider Anesthesiology | DX: M47.27 Other spondylosis with radiculopathy, lumbosacral region (principal); M53.3 Sacrococcygeal disorders, not elsewhere classified; M46.1 Sacroiliitis, not elsewhere classified; Z96.82 Presence of neurostimulator | CPT/HCPCS: 99212 ==

== ENCOUNTER 2021-11-09 07:19 | Day surgery (SDC) | payer MEDICARE, MEDICAID, SELFPAY ==
[2021-10-26 12:02] VITALS: BP 139/99; PULSE 93; RESP 16; O2SAT 97; BMI 45.4
--- NOTE | 2021-10-26 12:21 | P.CONAN_ITS ---
Documented by User: Farida Rhoades NP 10/31/21 13:44 HPI - Anesthesia Eval Consult details Narrative: 46yo F for Left Sacroiliac Joint Innervation Stimulation Implant COVID pna - hospitalized ~5 days at [facility] (Sep 17 to Sep 21), no intubation. Discharged on home O2 (2-3L continuous), weaned and completely off about 2 weeks ago. Reports breathing and activity at baseline (limited d/t stroke, deconditioning, multiple medical problems). Telehealth visit with PCP 10/26/21, pt stable at baseline except some fatigue. Multiple pain procedures in OR. Last was Left SI trial 08/2021 with GA-ETT 7.5 *Multiple med allergies* PMFSH Active Problems Active Problems: All Active Problems (Updated 10/26/21 @ 12:12 by Carla Duncan RN) Spondylosis of lumbosacral spine with radiculopathy (Acute) SI (sacroiliac) joint dysfunction (Acute) Sacroiliac joint dysfunction of left side (Acute) Sacroiliac joint dysfunction of right side (Acute) Sacroiliitis (Acute) Past Medical History Medical History Anxiety Arthritis Asthma Bipolar disorder COVID-19 vaccine series completed CVA (cerebral vascular accident) Depression Diabetes Fibromyalgia History of blood transfusion Hypertension Hypothyroid Insomnia Low back pain Lymphedema of left leg Migraine ALEJANDRO (obstructive sleep apnea) Panic attack as reaction to stress Sacroiliac joint dysfunction of left side Sacroiliac joint dysfunction of right side Sacroiliitis Status post insertion of nerve stimulator Family History Family history of problems with anesthesia: No Surgical History Surgical History H/O arthroscopy of right knee History of endometrial ablation History of hernia surgery History of tonsillectomy and adenoidectomy Hx of appendectomy S/P tubal ligation History of Problems with Anesthesia: No Social History Social History Are you a primary health care marketing manager to a significant other at home: No Do you presently have visiting nurse or other home services: Yes (PERSONAL CARE AIDE 8 hours) Patient Tobacco Use Status: Never used Tobacco Narrative Narrative: Activity limited to pain, mobility. Walks with walker and participates in physical therapy. Meds Allergies Allergy/AdvReac Type Severity Reaction Status Date / Time lurasidone [Latuda] Allergy Severe Unknown Verified 11/09/21 07:31 morphine Allergy Severe Nausea and Verified 11/09/21 07:31 Vomiting codeine [CODEINE] Allergy Intermediate RASH Verified 11/09/21 07:31 duloxetine [Cymbalta] Allergy Intermediate rash, n/v Verified 11/09/21 07:31 milnacipran [Savella] Allergy Intermediate rash,nausea, Verified 11/09/21 07:31 vomiting Penicillins [PENICILLINS] Allergy Intermediate NAUSEA & Verified 11/09/21 07:31 VOMITING, rash pregabalin Allergy Intermediate rash,n/v Verified 11/09/21 07:31 sulindac Allergy Intermediate Nausea, Verified 11/09/21 07:31 Vomiting amiloride Allergy Unknown Unknown Verified 11/09/21 07:31 hydrochlorothiazide Allergy Unknown Unknown Verified 11/09/21 07:31 lamotrigine Allergy Rash Verified 11/09/21 07:31 From PERCOCET Allergy Severe rash,n/v Uncoded 10/25/21 11:46 Home Medications Medication Instructions Recorded Confirmed Last Taken Type albuterol sulfate 90 mcg/actuation 1 puff INHALATION Q4-6H PRN 09/27/20 10/26/21 04/13/21 History aerosol inhaler amitriptyline 100 mg tablet 100 mg PO BEDTIME 09/27/20 10/26/21 Unknown History aspirin 81 mg tablet,delayed 81 mg PO DAILY 09/27/20 10/26/21 10/26/21 History release (Adult Aspirin Regimen) atorvastatin 40 mg tablet 40 mg PO DAILY 09/27/20 10/26/21 Unknown History baclofen 20 mg tablet 20 mg PO BID 09/27/20 10/26/21 Unknown History diazepam 2 mg tablet 2 mg PO BID 09/27/20 10/26/21 11/09/21 06:00 History diltiazem HCl 120 mg 120 mg PO DAILY 09/27/20 10/26/21 11/09/21 06:00 History capsule,extended release 24 hr famotidine 20 mg tablet 20 mg PO BID 09/27/20 10/26/21 11/09/21 06:00 History furosemide 20 mg tablet 10 mg PO DAILY 09/27/20 10/26/21 Unknown History ibuprofen 400 mg tablet 400 mg PO BID PRN 09/27/20 10/26/21 10/26/21 History levocetirizine 5 mg tablet 5 mg PO DAILY 09/27/20 10/26/21 Unknown History levothyroxine 150 mcg tablet 150 mcg PO 5XW 09/27/20 10/26/21 11/09/21 06:00 History linaclotide 145 mcg capsule 290 mcg PO QAM 09/27/20 10/26/21 Unknown History lisinopril 10 mg tablet 10 mg PO DAILY 09/27/20 10/26/21 Unknown History montelukast 10 mg tablet 10 mg PO BEDTIME 09/27/20 10/26/21 Unknown History nystatin 100,000 unit/gram topical 1 appl TOPICAL TID PRN 09/27/20 10/26/21 Unknown History powder penciclovir 1 % topical cream 1 appl TOPICAL DAILY PRN 09/27/20 10/26/21 Unknown History metformin 500 mg tablet 500 mg PO BID 11/21/20 10/26/21 Unknown History budesonide-formoterol HFA 160 2 puff PO BID 11/24/20 10/26/21 11/24/20 07:00 History mcg-4.5 mcg/actuation aerosol inhaler (Symbicort) buspirone 5 mg tablet 1 tab PO TID 04/06/21 10/26/21 11/09/21 06:00 History zolpidem 5 mg tablet 1 tab PO BEDTIME 04/06/21 10/26/21 Unknown History levothyroxine 300 mcg tablet 300 mcg PO 2XW 07/30/21 10/26/21 Unknown History galcanezumab-gnlm 120 mg/mL mg SUBCUT Q4W 10/25/21 Unknown History subcutaneous pen injector (Emgality Pen) glyburide 5 mg tablet 5 mg PO BID 10/26/21 10/26/21 Unknown History Exam Exam Date and Time: October 26, 2021 1221 Height,Weight and Vital Signs: Height 5 ft 2 in Weight 112.8 kg Last Vital Signs Pulse 93 10/26/21 12:02 Resp 16 10/26/21 12:02 BP 139/99 H 10/26/21 12:02 Pulse Ox 97 10/26/21 12:02 Pertinent Lab Results Pertinent Lab Results: CBC 09/2021 WBC 6.1 Hgb 14.3 Hct 44.0 Plt 376 PT 12.8 INR 1.1 Na 137 K 4.4 Cl 101 CO2 29 BUN 19 Creat 0.81 Narrative Narrative: EKG 09/17/21 NSR @ 87 Prolonged QT Abnormal EKG No significant change was found when c/w 10/2019 Airway Mallampati Class: II TM Dist: <=3cm Neck ROM: Full Partial: Upper and Lower Heart: RRR Lungs: CTAB Assessment and Plan Assessment Anesthesia Assessment: Anesthesia Plan Discussed and PAT Visit Final Anesthetic Review Family History of Problems with Anesthesia: No History of Problems with Anesthesia: No Documented by User: Thai Shah MD 11/09/21 17:11 HPI - Anesthesia Eval Consult details Narrative: 46yo F for Left Sacroiliac Joint Innervation Stimulation Implant COVID pna - hospitalized ~5 days at [facility] (Sep 17 to Sep 21), no intubation. Discharged on home O2 (2-3L continuous), weaned and completely off about 2 weeks ago. Reports breathing and activity at baseline (limited d/t stroke, deconditioning, multiple medical problems). Telehealth visit with PCP 10/26/21, pt stable at baseline except some fatigue. CVA with left sided weakness . Multiple pain procedures in OR. Last was Left SI trial 08/2021 with GA-ETT 7.5 *Multiple med allergies* [facility] [place] Past Medical History Medical History Anxiety Arthritis Asthma Bipolar disorder COVID-19 vaccine series completed CVA (cerebral vascular accident) Depression Diabetes Fibromyalgia History of blood transfusion Hypertension Hypothyroid Insomnia Low back pain Lymphedema of left leg Migraine ALEJANDRO (obstructive sleep apnea) Panic attack as reaction to stress Sacroiliac joint dysfunction of left side Sacroiliac joint dysfunction of right side Sacroiliitis Status post insertion of nerve stimulator Surgical History Surgical History H/O arthroscopy of right knee History of endometrial ablation History of hernia surgery History of tonsillectomy and adenoidectomy Hx of appendectomy S/P tubal ligation Social History Social History Are you a primary health care marketing manager to a significant other at home: No Do you presently have visiting nurse or other home services: Yes (PERSONAL CARE AIDE 8 hours) Patient Tobacco Use Status: Never used Tobacco Meds Allergies Allergy/AdvReac Type Severity Reaction Status Date / Time lurasidone [Latuda] Allergy Severe Unknown Verified 11/09/21 07:31 morphine Allergy Severe Nausea and Verified 11/09/21 07:31 Vomiting codeine [CODEINE] Allergy Intermediate RASH Verified 11/09/21 07:31 duloxetine [Cymbalta] Allergy Intermediate rash, n/v Verified 11/09/21 07:31 milnacipran [Savella] Allergy Intermediate rash,nausea, Verified 11/09/21 07:31 vomiting Penicillins [PENICILLINS] Allergy Intermediate NAUSEA & Verified 11/09/21 07:31 VOMITING, rash pregabalin Allergy Intermediate rash,n/v Verified 11/09/21 07:31 sulindac Allergy Intermediate Nausea, Verified 11/09/21 07:31 Vomiting amiloride Allergy Unknown Unknown Verified 11/09/21 07:31 hydrochlorothiazide Allergy Unknown Unknown Verified 11/09/21 07:31 lamotrigine Allergy Rash Verified 11/09/21 07:31 From PERCOCET Allergy Severe rash,n/v Uncoded 10/25/21 11:46 Home Medications Medication Instructions Recorded Confirmed Last Taken Type albuterol sulfate 90 mcg/actuation 1 puff INHALATION Q4-6H PRN 09/27/20 10/26/21 04/13/21 History aerosol inhaler amitriptyline 100 mg tablet 100 mg PO BEDTIME 09/27/20 10/26/21 Unknown History aspirin 81 mg tablet,delayed 81 mg PO DAILY 09/27/20 10/26/21 10/26/21 History release (Adult Aspirin Regimen) atorvastatin 40 mg tablet 40 mg PO DAILY 09/27/20 10/26/21 Unknown History baclofen 20 mg tablet 20 mg PO BID 09/27/20 10/26/21 Unknown History diazepam 2 mg tablet 2 mg PO BID 09/27/20 10/26/21 11/09/21 06:00 History diltiazem HCl 120 mg 120 mg PO DAILY 09/27/20 10/26/21 11/09/21 06:00 History capsule,extended release 24 hr famotidine 20 mg tablet 20 mg PO BID 09/27/20 10/26/21 11/09/21 06:00 History furosemide 20 mg tablet 10 mg PO DAILY 09/27/20 10/26/21 Unknown History ibuprofen 400 mg tablet 400 mg PO BID PRN 09/27/20 10/26/21 10/26/21 History levocetirizine 5 mg tablet 5 mg PO DAILY 09/27/20 10/26/21 Unknown History levothyroxine 150 mcg tablet 150 mcg PO 5XW 09/27/20 10/26/21 11/09/21 06:00 History linaclotide 145 mcg capsule 290 mcg PO QAM 09/27/20 10/26/21 Unknown History lisinopril 10 mg tablet 10 mg PO DAILY 09/27/20 10/26/21 Unknown History montelukast 10 mg tablet 10 mg PO BEDTIME 09/27/20 10/26/21 Unknown History nystatin 100,000 unit/gram topical 1 appl TOPICAL TID PRN 09/27/20 10/26/21 Unknown History powder penciclovir 1 % topical cream 1 appl TOPICAL DAILY PRN 09/27/20 10/26/21 Unknown History metformin 500 mg tablet 500 mg PO BID 11/21/20 10/26/21 Unknown History budesonide-formoterol HFA 160 2 puff PO BID 11/24/20 10/26/21 11/24/20 07:00 History mcg-4.5 mcg/actuation aerosol inhaler (Symbicort) buspirone 5 mg tablet 1 tab PO TID 04/06/21 10/26/21 11/09/21 06:00 History zolpidem 5 mg tablet 1 tab PO BEDTIME 04/06/21 10/26/21 Unknown History levothyroxine 300 mcg tablet 300 mcg PO 2XW 07/30/21 10/26/21 Unknown History galcanezumab-gnlm 120 mg/mL mg SUBCUT Q4W 10/25/21 Unknown History subcutaneous pen injector (Emgality Pen) glyburide 5 mg tablet 5 mg PO BID 03/11/22 03/11/22 Unknown History Exam Airway Loose/Missing/Broken Teeth: Yes Assessment and Plan Final Anesthetic Review NPO: Yes ASA Class: III Final Preanesthetic Review: Meds/Allgs Chart Reviewed, Consent Obtained/Reviewed and Anes Risks/Benef Reviewed Patient Risk: High Procedure Risk: Intermediate Anesthetic Plan Anesthetic Plan: GA Disposition: Standard PACU
[2021-11-09] VITALS (10 sets, daily range): BP systolic 117–157; BP diastolic 72–103; PULSE 88–102; RESP 13–20; TEMP 36.1–36.8; O2SAT 92–96
--- NOTE | ~2021-11-09 | FL_ITS ---
EXAMINATION: XR FLUOROSCOPY WITH IMAGES CLINICAL INFORMATION: SI joint induration. COMPARISON: None. TECHNIQUE: Fluoroscopy performed by Dr. Garfield Kaba Fluoroscopy time: 0.8 minutes DAP: 5.95 mGycm2 Images: 4 -). FINDINGS: There is a bilateral pair of sacral implants on each side. The visualized SI joints are unremarkable. Also visualized are similar implants bilaterally in the lumbar region. Visualized vertebral heights, alignment and disc heights are normal. FL/FL guidance in OR IMPRESSION: Fluoroscopy was provided to referring physician for pain management.
[2021-11-09 07:53] LABS: Glucose, Whole Blood 229 mg/dL (60-115)
[2021-11-09] MEDS: Lactated Ringers 1,000 ML 100 ML IVCONT (08:16)
--- NOTE | 2021-11-09 08:22 | MHC.SHP ---
Pre-Procedural Eval Section A Date of Service: 11/09/21 The patient is an INPATIENT: No Changes since office visit: Yes Patient answered all questions The History & Physical has been completed within 30 days and I have reviewed it.: No Section B Chief Complaint: sacroiliitis Details of Present Illness: as above Relevant Family History (Specify if Yes): No Relevant Social History: None Present Medications: see Short Stay Collaborative assessment Medical History: No relevant PMH History of Previous Operations: No relevant previous surgery Allergies: Allergies Allergy/AdvReac Type Severity Reaction Status Date / Time lurasidone [Latuda] Allergy Severe Unknown Verified 11/09/21 07:31 morphine Allergy Severe Nausea and Verified 11/09/21 07:31 Vomiting codeine [CODEINE] Allergy Intermediate RASH Verified 11/09/21 07:31 duloxetine [Cymbalta] Allergy Intermediate rash, n/v Verified 11/09/21 07:31 milnacipran [Savella] Allergy Intermediate rash,nausea, Verified 11/09/21 07:31 vomiting Penicillins [PENICILLINS] Allergy Intermediate NAUSEA & Verified 11/09/21 07:31 VOMITING, rash pregabalin Allergy Intermediate rash,n/v Verified 11/09/21 07:31 sulindac Allergy Intermediate Nausea, Verified 11/09/21 07:31 Vomiting amiloride Allergy Unknown Unknown Verified 11/09/21 07:31 hydrochlorothiazide Allergy Unknown Unknown Verified 11/09/21 07:31 lamotrigine Allergy Rash Verified 11/09/21 07:31 From PERCOCET Allergy Severe rash,n/v Uncoded 10/25/21 11:46 Review of Systems Sugical H&P ROS: Negative: Cardiovascular, Respiratory, Neurological, Psychiatric, Hem-Onc, Allergic/Immunologic, Gastrointestinal, Genitourinary, Musculoskeletal, Integumentary, Endocrine and Eyes/Ears/Nose/Throat and Yes, Specify: Constitution (morbid obesity) Exam Surgical H&P Exam: Normal: HEENT, Normal: Heart, Normal: Lungs, Normal: Extremities, Normal: Abdomen, Normal: Skin and Normal: Neurological Plan Diagnosis/Plan: Unchanged I have reviewed the history and physical and performed a pertinent physical examination on my patient. No changes have occurred unless specified.
--- NOTE | 2021-11-09 09:22 | W.PM.OPN ---
Operative Note Operative Note Date of Service: 11/09/21 Narrative: After obtaining informed consent the patient was brought to the operating room, she was positioned supine on the stretcher ASA m-rs were applied and the patient was induced with GETA. She was transferred on the ORT and all pressure points were protected. ?Time-out was performed delineating correct site, side, the nature of the procedure, patient's allergy, preoperative antibiotic.? All operating room staff was participating in OR time-out procedure.? The patient received cefazolin 3 gr. intravenously 30 minutes before the procedure. the patient's entire back? was prepped with ChloraPrep twice. Whole body drape was applied including Ioban film.? Sterilely draped C-arm was brought over the operating field and sq picture of right side of the pelvis was demonstrated on the screen. the patient's right stimulating wires for the right sacroiliac joint where examined. It appears to be that 1 of the stimulating wires got dislodged and no longer capable of stimulating appropriate nerve roots. Patient needs to be made aware about it Attention then was concentrated on the left iliac joint. 4 cm above from the patient's Leftsacral ala projection the skin was infiltrated in linear horizontal fashion and 10 blade scalpel was used to make an horizontal incision on the skin 5 cm long. The wound was widened and deepened intill the superficial fascia. 16 g 15 cm introducer malleable needle was inserted through the fascia and advanced to the left sacral ala under interim posterior and lateral x-ray views.. when the position of the tip of the introducer needle was verified on the lateral view above the level of the bone,? the needle advanced alongside the sacral bone curvature following the direction of the silhouette of the sacroilic joint.? permanent stimulator catheter was inserted and advanced in the needle? When the body of the lead? reached adequate position the stirring stilet was removed from the lead and a conduction copper wire was inserted into the lead and advanced until resistance was met. The introducer needle was withdrawn with care taken not to dislodge the stimulating lead. After that - one more stimulating lead was inserted into slightly more medial position and more proximal position 1 cm to the lateral side from the first stimulating lead using the same technique as described above. both leads were sutured to superficial fascia using 0 Tycron intermittent sutures for each of the lead. The wound was irrigated with vancomycin containing normal saline. After that in the upper lumbar paraspinal area? local anesthetic was injected into the skin and the vertical Five cm incision was made using 10 blade scalpel. This wound was widened and deepened using dull dissection and hemostasis was performed using electrocautery. After that this wound was irrigated with vancomycin containing normal saline and? tunneling device was used to connect the two wounds. The tales of the stimulating electrodes were tunneled from the distal wound to the proximal wound and tunneling device was split and withdrawn. Care was taken to form straight position of the stimulating leads. After that the ends of the plastic leads were tide on itself and then the coil was? formed from the free ends of the? two plastic leads using free Tycron suture knots. the coil was inserted into the wound. After that both wounds were irrigated again, they were closed using 0 Polysorb sutures and after that 0-2 polisorb sutures were used to approximate the edges of the skin., s Dermabond was applied to the skin. Steri-Strips were applied over the dermal bone to hold the wound securely. sterile dressings were affixed on the both wounds. The patient was awaken, transferred to PACU, where she recovered uneventfully.
--- NOTE | 2021-11-09 11:53 | PM.OP ---
Brief Operative Note Date of Service: 11/09/21 Pre-op diagnosis: Sacroiliitis sacroiliac joint dysfunction bilateral Post-op diagnosis: same Procedure: implantation of the stim wave stimulation of sacroiliac joint innervation left Implants: stim wave stimulating wires Surgeon: Garfield Kaba MD Anesthesia: GETA Was an Clarifier Operator used for this Procedure?: No Estimated blood loss (mL): 10 Pathology: none sent Condition: stable Disposition: PACU
== END 2021-11-09 14:24 | disposition home or self-care (01) ==
PROVIDERS: Visit Provider Anesthesiology
PROC: (CPT 64555; principal; 2021-11-09 09:20)
DX: M46.1 Sacroiliitis, not elsewhere classified (principal); M53.3 Sacrococcygeal disorders, not elsewhere classified; M54.50 Low back pain, unspecified; M47.27 Other spondylosis with radiculopathy, lumbosacral region; I89.0 Lymphedema, not elsewhere classified; M79.7 Fibromyalgia; I63.9 Cerebral infarction, unspecified; G81.94 Hemiplegia, unspecified affecting left nondominant side; F31.9 Bipolar disorder, unspecified; I10 Essential (primary) hypertension; E55.9 Vitamin D deficiency, unspecified; E03.9 Hypothyroidism, unspecified; G47.33 Obstructive sleep apnea (adult) (pediatric); Z79.84 Long term (current) use of oral hypoglycemic drugs; Z79.899 Other long term (current) drug therapy; Z79.82 Long term (current) use of aspirin; Z79.1 Long term (current) use of non-steroidal anti-inflammatories (NSAID); Z88.0 Allergy status to penicillin; Z88.8 Allergy status to other drugs, medicaments and biological substances
CPT/HCPCS: 64555 ×2; 82947; C1816; J1100; J2250; J2405; J2765; J3010; J3370

== ENCOUNTER → 2021-11-15 10:19 | Outpatient (BNVA) | payer MEDICARE, MEDICAID, SELFPAY | PROVIDERS: Visit Provider Anesthesiology | DX: M47.27 Other spondylosis with radiculopathy, lumbosacral region (principal); M53.3 Sacrococcygeal disorders, not elsewhere classified; M46.1 Sacroiliitis, not elsewhere classified | CPT/HCPCS: 99212 ==

== ENCOUNTER → 2021-11-22 10:11 | Outpatient (BNVA) | payer MEDICARE, MEDICAID, SELFPAY | PROVIDERS: Visit Provider Anesthesiology | DX: M47.27 Other spondylosis with radiculopathy, lumbosacral region (principal); M53.3 Sacrococcygeal disorders, not elsewhere classified; M46.1 Sacroiliitis, not elsewhere classified | CPT/HCPCS: 99212 ==

== ENCOUNTER 2022-03-08 05:56 | Day surgery (SDC) | payer MEDICARE, MEDICAID, SELFPAY ==
[2022-03-04 11:53] VITALS: BMI 48.2
--- NOTE | 2022-03-07 10:20 | HO.ANESPROP2 ---
Documented by User: Farida Rhoades NP 03/07/22 10:26 HPI - Anesthesia Eval Consult details Narrative: 47yo F for Right Sacroiliac Joint Innerv Stim Implant Revision *Multiple Med Allergies* s/p implant 10/2021 with GA-ETT 7.5 PMFSH Active Problems Active Problems: All Active Problems (Updated 11/08/21 @ 09:30 by Carine Bronson RN) Spondylosis of lumbosacral spine with radiculopathy (Acute) SI (sacroiliac) joint dysfunction (Acute) Sacroiliac joint dysfunction of left side (Acute) Sacroiliac joint dysfunction of right side (Acute) Sacroiliitis (Acute) Past Medical History Medical History Anxiety Arthritis Asthma Bipolar disorder COVID-19 vaccine series completed CVA (cerebral vascular accident) Depression Diabetes Fibromyalgia History of blood transfusion Hypertension Hypothyroid Insomnia Low back pain Lymphedema of left leg Migraine ALEJANDRO (obstructive sleep apnea) Panic attack as reaction to stress Sacroiliac joint dysfunction of left side Sacroiliac joint dysfunction of right side Sacroiliitis Status post insertion of nerve stimulator Family History Family history of problems with anesthesia: No Surgical History Surgical History H/O arthroscopy of right knee History of endometrial ablation History of hernia surgery History of tonsillectomy and adenoidectomy Hx of appendectomy S/P tubal ligation History of Problems with Anesthesia: No Social History Social History Are you a primary home care administrator to a significant other at home: No Do you presently have visiting nurse or other home services: Yes ([employer] 15 hours/week) Patient Tobacco Use Status: Never used Tobacco Have you been hit, kicked, punched, or otherwise hurt by someone within the past year? If so, by whom?: No Are you DNR?: No Advance Directives: No Advance Directives Information Provided: Yes Advance Directives on File: No Recently lost weight without trying: No Nutrition Risks: No Nutritional Risk Patient : No FDLMP: 2006 : No Poor oral hygiene: No (upper and lower partials) Meds Allergies Allergy/AdvReac Type Severity Reaction Status Date / Time lurasidone [Latuda] Allergy Severe may have Verified 03/08/22 06:36 caused CVA morphine Allergy Severe Anaphylaxis Verified 03/08/22 06:36 codeine [CODEINE] Allergy Intermediate RASH Verified 03/08/22 06:36 duloxetine [Cymbalta] Allergy Intermediate rash, n/v Verified 03/08/22 06:36 lamotrigine Allergy Intermediate Rash Verified 03/08/22 06:36 milnacipran [Savella] Allergy Intermediate rash,nausea, Verified 03/08/22 06:36 vomiting Penicillins [PENICILLINS] Allergy Intermediate NAUSEA & Verified 03/08/22 06:36 VOMITING, rash pregabalin Allergy Intermediate rash,n/v Verified 03/08/22 06:36 sulindac Allergy Intermediate Nausea, Verified 03/08/22 06:36 Vomiting amiloride Allergy Unknown Unknown Verified 03/08/22 06:36 hydrochlorothiazide Allergy Unknown Unknown Verified 03/08/22 06:36 From PERCOCET Allergy Severe rash,n/v Uncoded 03/04/22 11:46 Home Medications Medication Instructions Recorded Confirmed Last Taken Type albuterol sulfate 90 mcg/actuation 1 puff inhalation Q4-6H PRN 09/27/20 03/04/22 03/08/22 History aerosol inhaler Shortness Of Breath Or Wheezing amitriptyline 100 mg tablet 100 mg PO BEDTIME 09/27/20 03/04/22 Unknown History aspirin 81 mg tablet,delayed 81 mg PO DAILY 09/27/20 03/04/22 02/22/22 History release (Adult Aspirin Regimen) atorvastatin 40 mg tablet 40 mg PO DAILY 09/27/20 03/04/22 Unknown History baclofen 20 mg tablet 20 mg PO BID 09/27/20 03/04/22 Unknown History diazepam 2 mg tablet 2 mg PO BID 09/27/20 03/04/22 03/08/22 History diltiazem HCl 120 mg 120 mg PO DAILY 09/27/20 03/04/22 03/08/22 History capsule,extended release 24 hr famotidine 20 mg tablet 20 mg PO BID 09/27/20 03/04/22 03/08/22 History furosemide 20 mg tablet 10 mg PO DAILY 09/27/20 03/04/22 Unknown History ibuprofen 400 mg tablet 400 mg PO BID PRN Pain 09/27/20 10/26/21 10/26/21 History levocetirizine 5 mg tablet 5 mg PO DAILY 09/27/20 03/04/22 03/08/22 History levothyroxine 150 mcg tablet 150 mcg PO 6XW 09/27/20 03/04/22 03/08/22 History linaclotide 145 mcg capsule 290 mcg PO QAM 09/27/20 03/04/22 Unknown History lisinopril 10 mg tablet 10 mg PO DAILY 09/27/20 03/04/22 Unknown History montelukast 10 mg tablet 10 mg PO BEDTIME 09/27/20 03/04/22 Unknown History nystatin 100,000 unit/gram topical 1 appl topical TID PRN Rash 09/27/20 03/04/22 Unknown History powder penciclovir 1 % topical cream 1 appl topical DAILY PRN Cold Sores 09/27/20 03/04/22 Unknown History metformin 500 mg tablet 500 mg PO BID 11/21/20 03/04/22 Unknown History budesonide-formoterol HFA 160 2 puff PO BID 11/24/20 03/04/22 11/24/20 07:00 History mcg-4.5 mcg/actuation aerosol inhaler (Symbicort) buspirone 5 mg tablet 1 tab PO TID 04/06/21 03/04/22 03/08/22 History zolpidem 5 mg tablet 1 tab PO BEDTIME 04/06/21 03/04/22 Unknown History levothyroxine 300 mcg tablet 200 mcg PO .Friday07/30/21 03/04/22 Unknown History galcanezumab-gnlm 120 mg/mL mg subcut Q4W 10/25/21 Unknown History subcutaneous pen injector (Emgality Pen) glyburide 5 mg tablet 5 mg PO BID 10/26/21 03/04/22 Unknown History tramadol 100 mg tablet 100 mg PO TID PRN Pain 03/04/22 03/04/22 Unknown History Exam Exam Date and Time: March 07, 2022 1020 Height,Weight and Vital Signs: Height 5 ft 1 in Weight 115.666 kg Pertinent Lab Results Pertinent Lab Results: CBC 09/2021 WBC 6.1 Hgb 14.3 Hct 44.0 Plt 376 PT 12.8 INR 1.1 Na 137 K 4.4 Cl 101 CO2 29 BUN 19 Creat 0.81 Narrative Narrative: EKG 09/17/21 NSR @ 87 Prolonged QT Abnormal EKG No significant change was found when c/w 10/2019 Airway Mallampati Class: II TM Dist: <=3cm Neck ROM: Full Partial: Upper and Lower Loose/Missing/Broken Teeth: Yes Assessment and Plan Assessment Anesthesia Assessment: Chart Reviewed Final Anesthetic Review Family History of Problems with Anesthesia: No History of Problems with Anesthesia: No Documented by User: Milton Prabhakar MD 03/08/22 07:25 PMF Past Medical History Medical History Anxiety Arthritis Asthma Bipolar disorder COVID-19 vaccine series completed CVA (cerebral vascular accident) Depression Diabetes Fibromyalgia History of blood transfusion Hypertension Hypothyroid Insomnia Low back pain Lymphedema of left leg Migraine ALEJANDRO (obstructive sleep apnea) Panic attack as reaction to stress Sacroiliac joint dysfunction of left side Sacroiliac joint dysfunction of right side Sacroiliitis Status post insertion of nerve stimulator Surgical History Surgical History H/O arthroscopy of right knee History of endometrial ablation History of hernia surgery History of tonsillectomy and adenoidectomy Hx of appendectomy S/P tubal ligation Social History Social History Are you a primary home care administrator to a significant other at home: No Do you presently have visiting nurse or other home services: Yes ([employer] 15 hours/week) Patient Tobacco Use Status: Never used Tobacco Have you been hit, kicked, punched, or otherwise hurt by someone within the past year? If so, by whom?: No Are you DNR?: No Advance Directives: No Advance Directives Information Provided: Yes Advance Directives on File: No Recently lost weight without trying: No Nutrition Risks: No Nutritional Risk Patient : No FDLMP: 2006 : No Poor oral hygiene: No (upper and lower partials) Meds Allergies Allergy/AdvReac Type Severity Reaction Status Date / Time lurasidone [Latuda] Allergy Severe may have Verified 03/08/22 06:36 caused CVA morphine Allergy Severe Anaphylaxis Verified 03/08/22 06:36 codeine [CODEINE] Allergy Intermediate RASH Verified 03/08/22 06:36 duloxetine [Cymbalta] Allergy Intermediate rash, n/v Verified 03/08/22 06:36 lamotrigine Allergy Intermediate Rash Verified 03/08/22 06:36 milnacipran [Savella] Allergy Intermediate rash,nausea, Verified 03/08/22 06:36 vomiting Penicillins [PENICILLINS] Allergy Intermediate NAUSEA & Verified 03/08/22 06:36 VOMITING, rash pregabalin Allergy Intermediate rash,n/v Verified 03/08/22 06:36 sulindac Allergy Intermediate Nausea, Verified 03/08/22 06:36 Vomiting amiloride Allergy Unknown Unknown Verified 03/08/22 06:36 hydrochlorothiazide Allergy Unknown Unknown Verified 03/08/22 06:36 From PERCOCET Allergy Severe rash,n/v Uncoded 03/04/22 11:46 Home Medications Medication Instructions Recorded Confirmed Last Taken Type albuterol sulfate 90 mcg/actuation 1 puff inhalation Q4-6H PRN 09/27/20 03/04/22 03/08/22 History aerosol inhaler Shortness Of Breath Or Wheezing amitriptyline 100 mg tablet 100 mg PO BEDTIME 09/27/20 03/04/22 Unknown History aspirin 81 mg tablet,delayed 81 mg PO DAILY 09/27/20 03/04/22 02/22/22 History release (Adult Aspirin Regimen) atorvastatin 40 mg tablet 40 mg PO DAILY 09/27/20 03/04/22 Unknown History baclofen 20 mg tablet 20 mg PO BID 09/27/20 03/04/22 Unknown History diazepam 2 mg tablet 2 mg PO BID 09/27/20 03/04/22 03/08/22 History diltiazem HCl 120 mg 120 mg PO DAILY 09/27/20 03/04/22 03/08/22 History capsule,extended release 24 hr famotidine 20 mg tablet 20 mg PO BID 09/27/20 03/04/22 03/08/22 History furosemide 20 mg tablet 10 mg PO DAILY 09/27/20 03/04/22 Unknown History ibuprofen 400 mg tablet 400 mg PO BID PRN Pain 09/27/20 10/26/21 10/26/21 History levocetirizine 5 mg tablet 5 mg PO DAILY 09/27/20 03/04/22 03/08/22 History levothyroxine 150 mcg tablet 150 mcg PO 6XW 09/27/20 03/04/22 03/08/22 History linaclotide 145 mcg capsule 290 mcg PO QAM 09/27/20 03/04/22 Unknown History lisinopril 10 mg tablet 10 mg PO DAILY 09/27/20 03/04/22 Unknown History montelukast 10 mg tablet 10 mg PO BEDTIME 09/27/20 03/04/22 Unknown History nystatin 100,000 unit/gram topical 1 appl topical TID PRN Rash 09/27/20 03/04/22 Unknown History powder penciclovir 1 % topical cream 1 appl topical DAILY PRN Cold Sores 09/27/20 03/04/22 Unknown History metformin 500 mg tablet 500 mg PO BID 11/21/20 03/04/22 Unknown History budesonide-formoterol HFA 160 2 puff PO BID 11/24/20 03/04/22 11/24/20 07:00 History mcg-4.5 mcg/actuation aerosol inhaler (Symbicort) buspirone 5 mg tablet 1 tab PO TID 04/06/21 03/04/22 03/08/22 History zolpidem 5 mg tablet 1 tab PO BEDTIME 04/06/21 03/04/22 Unknown History levothyroxine 300 mcg tablet 200 mcg PO .Friday07/30/21 03/04/22 Unknown History galcanezumab-gnlm 120 mg/mL mg subcut Q4W 10/25/21 Unknown History subcutaneous pen injector (Emgality Pen) glyburide 5 mg tablet 5 mg PO BID 10/26/21 03/04/22 Unknown History tramadol 100 mg tablet 100 mg PO TID PRN Pain 03/04/22 03/04/22 Unknown History Exam Airway Heart: rrr Lungs: clear Assessment and Plan Final Anesthetic Review NPO: Yes ASA Class: III Final Preanesthetic Review: No Changes in Pt Med Stat, Meds/Allgs Chart Reviewed, Consent Obtained/Reviewed and Anes Risks/Benef Reviewed Patient Risk: High Procedure Risk: Low Anesthetic Plan Anesthetic Plan: GA Disposition: Standard PACU
--- NOTE | 2022-03-07 17:22 | P.HPSUR_ITS ---
Pre-Procedural Eval Section A Date of Service: 03/07/22 The patient is an INPATIENT: No Changes since office visit: Yes Patient answered all questions The History & Physical has been completed within 30 days and I have reviewed it.: No Section B Chief Complaint: sacroilitis Details of Present Illness: As above Relevant Family History (Specify if Yes): No Relevant Social History: None Medical History: Significant History (Morbid obesity) History of Previous Operations: Relevant previous surgery/procedure and date(s) (Stimulation of the SI joint innervation, status post lead dislodgement) Allergies: Allergies Allergy/AdvReac Type Severity Reaction Status Date / Time lurasidone [Latuda] Allergy Severe may have Verified 03/04/22 11:46 caused CVA morphine Allergy Severe Anaphylaxis Verified 03/04/22 11:46 codeine [CODEINE] Allergy Intermediate RASH Verified 03/04/22 11:46 duloxetine [Cymbalta] Allergy Intermediate rash, n/v Verified 03/04/22 11:46 lamotrigine Allergy Intermediate Rash Verified 03/04/22 11:46 milnacipran [Savella] Allergy Intermediate rash,nausea, Verified 03/04/22 11:46 vomiting Penicillins [PENICILLINS] Allergy Intermediate NAUSEA & Verified 03/04/22 11:46 VOMITING, rash pregabalin Allergy Intermediate rash,n/v Verified 03/04/22 11:46 sulindac Allergy Intermediate Nausea, Verified 03/04/22 11:46 Vomiting amiloride Allergy Unknown Unknown Verified 03/04/22 11:46 hydrochlorothiazide Allergy Unknown Unknown Verified 03/04/22 11:46 From PERCOCET Allergy Severe rash,n/v Uncoded 03/04/22 11:46 Review of Systems Sugical H&P ROS: Negative: Cardiovascular, Respiratory, Neurological, Psychiatric, Hem-Onc, Allergic/Immunologic, Gastrointestinal, Genitourinary, Musculoskeletal, Integumentary, Endocrine and Eyes/Ears/Nose/Throat and Yes, Specify: Constitution (Morbid obesity) Exam Surgical H&P Exam: Normal: HEENT, Normal: Heart, Normal: Lungs, Normal: Ex tremities, Normal: Skin and Normal: Neurological and Significant Findings: Abdomen (enlarged 2 to i/a +s/q fat) Plan Diagnosis/Plan: Unchanged I have reviewed the history and physical and performed a pertinent physical examination on my patient. No changes have occurred unless specified.
[2022-03-08] VITALS (7 sets, daily range): BP systolic 124–150; BP diastolic 65–94; PULSE 81–95; RESP 18–22; TEMP 36.2–36.6; O2SAT 92–96
--- NOTE | ~2022-03-08 | FL_ITS ---
EXAMINATION: XR FLUOROSCOPY WITH IMAGES CLINICAL INFORMATION: Revision SI joint irritation stimulator implant. COMPARISON: Fluoroscopic spot views 08/24/2021 TECHNIQUE: Fluoroscopy performed by Dr. Garfield Kaba. Fluoroscopy time: 0.8 minutes. Cumulative Dose: 25.4 mGy. DAP: 6.93 Gy-cm2. Images: 2. FINDINGS: There are 2 vertically oriented stimulator leads seen overlying the left and right paralumbar region and the bilateral sacral wings. There is an electrode on each side at lower half sacral wing and lead on each side with tips at level lower SI joints, medial to the joint. The electrode implants. No visible kinking or visible focal defect. FL/FL guidance in OR IMPRESSION: Fluoroscopy for pain management procedures.
[2022-03-08 06:31] LABS: Glucose, Whole Blood 106 mg/dL (60-115)
[2022-03-08] MEDS: Lactated Ringers 1,000 ML 100 ML IVCONT (06:35)
--- NOTE | 2022-03-08 10:18 | P.BOP_ITS ---
Brief Operative Note Date of Service: 03/08/22 Pre-op diagnosis: sacroiliac joint pain sacroiliitis Post-op diagnosis: same Procedure: revision of the dislodged leads of the peripheral nerve stimulation of the right sacroiliac joint innervation Implants: stimulating leads stim wave #2 Surgeon: Garfield Kaba MD Anesthesia: GETA Was an [employer] used for this Procedure?: No Estimated blood loss (mL): 9 Pathology: none sent Condition: stable Disposition: PACU
--- NOTE | 2022-03-08 10:20 | W.PM.OPN ---
Operative Note Operative Note Date of Service: 11/09/21 Narrative: After obtaining informed consent the patient was brought to the operating room, she was positioned supine on the stretcher ASA m-rs were applied and the patient was induced with GETA. She was transferred on the ORT and all pressure points were protected. ?Time-out was performed delineating correct site, side, the nature of the procedure, patient's allergy, preoperative antibiotic.? All operating room staff was participating in OR time-out procedure.? The patient received clindamycin 900 mg. intravenously 30 minutes before the procedure. the patient's entire back? was prepped with ChloraPrep twice. Whole body drape was applied including Ioban film.? Sterilely draped C-arm was brought over the operating field and sq picture of right side of the pelvis was demonstrated on the screen. the patient's right stimulating wires for the right sacroiliac joint where examined. It appears to be that 1 of the stimulating wires got dislodged and no longer capable of stimulating appropriate nerve roots. right paraspinal incisional scar was infiltrated with mixture of lidocaine and Ropivacaine 1-1, after that the incision in the projection of the previousparaspinal Incisional scar was made using 10 blade scalpel. The wound was widened and deepened using electrocautery. The stimulating coil was found and freed from the scar tissues. The call was removed with the previously implanted stimulating electrode leads, the tips of the leads were intact. The wound was irrigated and cleaned again from the scar tissues. Attention then was concentrated on the Right sacroiliac joint. 4 cm above from the patient's right sacral ala projection the skin was infiltrated in linear horizontal fashion Using the same mixture of lidocaine and Ropivacaine and 10 blade scalpel was used to make an horizontal incision on the skin 5 cm long. The wound was widened and deepened untill the superficial fascia. 16 g 15 cm introducer malleable needle was inserted through the fascia and advanced to the right sacral ala under anterior- posterior and lateral x-ray views.. when the position of the tip of the introducer needle was verified on the lateral view above the level of the bone,? the needle advanced alongside the sacral bone curvature following the direction of the silhouette of the sacroilic joint.? permanent stimulator catheter was inserted and advanced in the needle? When the body of the lead? reached adequate position the stirring stilette was removed from the lead and a conduction copper wire was inserted into the lead and advanced until resistance was met. The introducer needle was withdrawn with care taken not to dislodge the stimulating lead. After that - one more stimulating lead was inserted into slightly more lateral position and more proximal position 1 cm to the lateral side from the first stimulating lead using the same technique as described above. both leads were sutured to superficial fascia using 0-0 Tycron intermittent sutures for each of the lead. The wound was irrigated with vancomycin containing normal saline. After that tunneling device was used to connect the paraspinal incision and horizontal incision above the sacral alae wounds. The tales of the stimulating electrodes were tunneled from the distal wound to the proximal wound and tunneling device was split and withdrawn. Care was taken to form straight position of the stimulating leads. After that the ends of the plastic leads were tide on itself and then the coil was? formed from the free ends of the? two plastic leads using free Tycron suture knots. the coil was inserted into the wound. After that both wounds were irrigated again, they were closed using 0 Polysorb sutures and after that 0-2 polisorb sutures were used to approximate the edges of the skin. daria were applied to the level of the skin. sterile dressings were affixed on the both wounds. The patient was awaken, transferred to PACU, where she recovered uneventfully.
== END 2022-03-08 11:40 | disposition home or self-care (01) ==
PROVIDERS: Visit Provider Anesthesiology
PROC: (CPT 64585; principal; 2022-03-08 07:30)
DX: M46.1 Sacroiliitis, not elsewhere classified (principal); M53.3 Sacrococcygeal disorders, not elsewhere classified; M47.27 Other spondylosis with radiculopathy, lumbosacral region; M79.7 Fibromyalgia; M54.50 Low back pain, unspecified; I10 Essential (primary) hypertension; I89.0 Lymphedema, not elsewhere classified; E11.9 Type 2 diabetes mellitus without complications; G47.33 Obstructive sleep apnea (adult) (pediatric); G43.909 Migraine, unspecified, not intractable, without status migrainosus; F31.9 Bipolar disorder, unspecified; J45.909 Unspecified asthma, uncomplicated; Z79.84 Long term (current) use of oral hypoglycemic drugs; Z79.899 Other long term (current) drug therapy; Z86.73 Personal history of transient ischemic attack (TIA), and cerebral infarction without residual deficits; Z88.0 Allergy status to penicillin; Z88.8 Allergy status to other drugs, medicaments and biological substances
CPT/HCPCS: 64585; 82947; C1816; J0330; J1100; J2250; J2405; J2795; J3010; J3370; Q9967

== ENCOUNTER 2022-03-12 10:35 | Emergency (ER) | payer MEDICARE, MEDICAID, SELFPAY ==
[2022-03-12 10:43] VITALS: BP 170/133; PULSE 102; O2SAT 97
--- NOTE | 2022-03-12 11:08 | ED.GENADULT ---
HPI - General Adult General Chief complaint: Back Pain/Injury Stated complaint: back pain/had surgery couple days ago Time Seen by Provider: 03/12/22 10:48 Source: patient Mode of arrival: ambulatory Limitations: no limitations History of Present Illness HPI narrative: 47-year-old female history of stroke ( left sided weakness, obstructive sleep apnea, and severe sciatica presents to the ED for severe back pain radiating down right leg since having revision periphereal nerve stimulator of right side of back that occurred this past friday. patient states Friday night the Novocain wear off and she tried to get up has severe back pain. Patient states when she sits on back or try to go for walks she has pain. Patient states she is not using her writing earlier and prescribed as recommended by primary care provider. Patient states procedure was done by Dr. Kaba this pas friday. she has appointment today with him at 13:30 and she called the clinic and she stated that he informed her for the medical staff to call him when she is in the ER CK evaluate her. Related Data Home Medications Medication Instructions Recorded Confirmed albuterol sulfate 90 mcg/actuation 1 puff inhalation Q4-6H PRN 09/27/20 03/12/22 aerosol inhaler Shortness Of Breath Or Wheezing amitriptyline 100 mg tablet 100 mg PO BEDTIME 09/27/20 03/12/22 atorvastatin 40 mg tablet 40 mg PO DAILY 09/27/20 03/12/22 baclofen 20 mg tablet 20 mg PO BID 09/27/20 03/12/22 diazepam 2 mg tablet 2 mg PO BID 09/27/20 03/12/22 diltiazem HCl 120 mg 120 mg PO DAILY 09/27/20 03/12/22 capsule,extended release 24 hr famotidine 20 mg tablet 20 mg PO BID 09/27/20 03/12/22 furosemide 20 mg tablet 10 mg PO DAILY 09/27/20 03/12/22 ibuprofen 400 mg tablet 400 mg PO BID PRN Pain 09/27/20 03/12/22 levocetirizine 5 mg tablet 5 mg PO BID 09/27/20 03/12/22 levothyroxine 150 mcg tablet 150 mcg PO MOTUWETHFRSA 09/27/20 03/12/22 linaclotide 145 mcg capsule 290 mcg PO QAM 09/27/20 03/12/22 lisinopril 10 mg tablet 10 mg PO DAILY 09/27/20 03/12/22 montelukast 10 mg tablet 10 mg PO BEDTIME 09/27/20 03/12/22 nystatin 100,000 unit/gram topical 1 appl topical TID PRN Rash 09/27/20 03/12/22 powder metformin 500 mg tablet 500 mg PO BID 11/21/20 03/12/22 budesonide-formoterol HFA 160 2 puff PO BID 11/24/20 03/12/22 mcg-4.5 mcg/actuation aerosol inhaler (Symbicort) buspirone 5 mg tablet 1 tab PO TID 04/06/21 03/12/22 zolpidem 5 mg tablet 1 tab PO BEDTIME PRN Insomnia 04/06/21 03/12/22 levothyroxine 300 mcg tablet 200 mcg PO AGUILAR 07/30/21 03/12/22 galcanezumab-gnlm 120 mg/mL 120 mg subcut Q4W 10/25/21 03/12/22 subcutaneous pen injector (Emgality Pen) tramadol 100 mg tablet 100 mg PO TID PRN Pain 03/04/22 03/12/22 cholecalciferol (vitamin D3) 25 25 mcg PO DAILY 03/12/22 03/12/22 mcg (1,000 unit) tablet tiotropium bromide 1.25 2 puff PO DAILY 03/12/22 03/12/22 mcg/actuation mist for inhalation (Spiriva Respimat) topiramate 25 mg tablet 1 tab PO DAILY 03/12/22 03/12/22 Previous Rx's Medication Instructions Recorded clindamycin HCl 300 mg capsule 300 mg PO Q6H 15 days #60 caps 03/08/22 Allergies Allergy/AdvReac Type Severity Reaction Status Date / Time lurasidone [Latuda] Allergy Severe may have Verified 03/08/22 06:36 caused CVA morphine Allergy Severe Anaphylaxis Verified 03/08/22 06:36 codeine [CODEINE] Allergy Intermediate RASH Verified 03/08/22 06:36 duloxetine [Cymbalta] Allergy Intermediate rash, n/v Verified 03/08/22 06:36 lamotrigine Allergy Intermediate Rash Verified 03/08/22 06:36 milnacipran [Savella] Allergy Intermediate rash,nausea, Verified 03/08/22 06:36 vomiting Penicillins [PENICILLINS] Allergy Intermediate NAUSEA & Verified 03/08/22 06:36 VOMITING, rash pregabalin Allergy Intermediate rash,n/v Verified 03/08/22 06:36 sulindac Allergy Intermediate Nausea, Verified 03/08/22 06:36 Vomiting amiloride Allergy Unknown Unknown Verified 03/08/22 06:36 hydrochlorothiazide Allergy Unknown Unknown Verified 03/08/22 06:36 From PERCOCET Allergy Severe rash,n/v Uncoded 03/04/22 11:46 Review of Systems Review of Systems: back pain Yes all other systems are reviewed and are negative [facility] Past Medical History Medical History (Updated 03/12/22 @ 17:12 by NEPTALI Dumont) Anxiety Arthritis Asthma Bipolar disorder COVID-19 vaccine series completed CVA (cerebral vascular accident) Depression Diabetes Fibromyalgia History of blood transfusion Hypertension Hypothyroid Insomnia Low back pain Lymphedema of left leg Migraine ALEJANDRO (obstructive sleep apnea) Panic attack as reaction to stress Sacroiliac joint dysfunction of left side Sacroiliac joint dysfunction of right side Sacroiliitis Status post insertion of nerve stimulator Surgical History H/O arthroscopy of right knee History of endometrial ablation History of hernia surgery History of tonsillectomy and adenoidectomy Hx of appendectomy S/P tubal ligation Social History Social History Are you a primary acute care assistant to a significant other at home: No Do you presently have visiting nurse or 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 home services: 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) Patient Tobacco Use Status: Never used Tobacco Use of substances other than those prescribed or required for medical reasons: No Advance Directives: Yes Advance Directives on File: Yes Advance Directives Date on File: 03/12/22 Physical Exam ED Vital Signs: Vital Signs - 24 hr 03/12/22 11:20 03/12/22 13:07 Temperature 97.0 F Pulse Rate 89 89 Respiratory Rate 18 Blood Pressure 122/66 122/66 Pulse Oximetry 97 97 Oxygen Delivery Method Room Air BMI result Body Mass Index 47.0 Const General: cooperative, healthy appearing, comfortable, no acute distress, well developed, alert, awake and Physically active Eyes General: appearance normal, both eyes and all related structures Neck Neck: Yes normal visual inspection, Yes full ROM, Yes no lymphadenopathy, Yes no meningeal signs, Yes trachea midline, Yes supple, No anterior neck swelling and No tender Chest Chest palpation & inspection: normal inspection of the chest and normal palpation of entire chest wall Resp Effort & Inspection: normal respiratory effort and able to speak in complete sentences Auscultation: clear to auscultation bilaterally Cardio Jugular venous distension: no JVD Heart sounds: S1 normal heart sound present and S2 normal heart sound present GI Inspection: Yes normal to inspection and No abdominal wall ecchymosis Palpation (GI): Soft to palpation, not firm, nontender, no guarding and not rigid General: No CVA tenderness and Yes no CVA tenderness Back/Spine/Pelvis Back: no CVA tenderness, No CVA tenderness and No back tenderness Back/spine/pelvis image: 1. sciatica tenderness. no ecchymosis, erythema, redness, or warmth. Skin General skin exam: no rashes or lesions noted and elasticity normal Neuro Other: Patient's lower extremity strength are equal. Neuro exam is intact. Patient's reflexes are symmetrical. Vascular exam in lower extremities intact. Patient able to lose lower extremities have good strength against my hands. General: no meningeal signs Extrem General: Yes normal to inspection and Yes full ROM Psych Appearance: grossly normal, well kempt and not disheveled Course Course Course Narrative: Presents no sigs of nerve damage, but will contact pain managment Surgeon Dr. Kaba Reevaluation(s) Reevaluation #1: Dr. Kaba Pain [facility] Surgeon came and evaluated patient. I was present at bedside. He uses nuerological hammer and needle. He states motor function is intact. States reflexes are symmetrical. He states neuro exam is intact. He states there is no indication for nerve damage. States patient lumbar nerves are intact. He recommends pain control and patient be sent to short-term rehab. He patient's incision wounds and no signs of infection. Once again he does not believe there is any nerve damage but did offer MRI to patient to make sure but patient refused and will prefer pain management and going to short-term rehab. PT rehabilitation case coordinatorcraft manager placed Time: 12:36 Reevaluation #2: PT recommends short-term rehab. Patient will wait overnight for short-term rehab. Med recon ordered. Pain med ordered p.r.n. Time: 15:32 Medical Decision Making Lab Data Labs: Lab Results 03/12/22 Range/Units 12:41 COVID-19 (MAE) Negative (Negative) COVID-19 Clin Com See Note Discharge Plan Discharge Clinical Impression: Spondylosis of lumbosacral spine with radiculopathy Patient Disposition: Still a Patient Prescriptions: No Action clindamycin HCl 300 mg capsule 300 mg PO Q6H 15 Days Qty: 60 1RF Rx Instructions: take OTC probiotics in between the doses of the antibiotics with food. metformin 500 mg tablet 500 mg PO BID budesonide-formoterol [Symbicort] 160-4.5 mcg/actuation HFA aerosol inhaler 2 puff PO BID buspirone 5 mg tablet 1 tab PO TID zolpidem 5 mg tablet 1 tab PO BEDTIME PRN (Reason: Insomnia) levothyroxine 300 mcg Tablet 200 mcg PO AGUILAR Emgality Pen 120 mg/mL pen injector 120 mg subcut Q4W tramadol 100 mg Tablet 100 mg PO TID PRN (Reason: Pain) topiramate 25 mg tablet 1 tab PO DAILY Spiriva Respimat 1.25 mcg/actuation mist 2 puff PO DAILY cholecalciferol (vitamin D3) 25 mcg (1,000 unit) Tablet 25 mcg PO DAILY lisinopril 10 mg tablet 10 mg PO DAILY ibuprofen 400 mg tablet 400 mg PO BID PRN (Reason: Pain) amitriptyline 100 mg tablet 100 mg PO BEDTIME Linzess 145 mcg capsule 290 mcg PO QAM nystatin 100,000 unit/gram powder 1 appl topical TID PRN (Reason: Rash) montelukast 10 mg tablet 10 mg PO BEDTIME levocetirizine 5 mg tablet 5 mg PO BID diazepam 2 mg tablet 2 mg PO BID diltiazem HCl 120 mg capsule,extended release 24hr 120 mg PO DAILY levothyroxine 150 mcg tablet 150 mcg PO MOTUWETHFRSA Label Comments: 300 mcg on Friday baclofen 20 mg tablet 20 mg PO BID famotidine 20 mg tablet 20 mg PO BID furosemide 20 mg tablet 10 mg PO DAILY atorvastatin 40 mg tablet 40 mg PO DAILY albuterol sulfate 90 mcg/actuation HFA aerosol inhaler 1 puff inhalation Q4-6H PRN (Reason: Shortness Of Breath Or Wheezing) Print Language: Vincentian
[2022-03-12 11:20] VITALS: BP 122/66; PULSE 89; RESP 18; TEMP 36.1; O2SAT 97; BMI 47.2
[2022-03-12 11:23] VITALS: BMI 47.0
--- NOTE | 2022-03-12 12:29 | HO.PAINCONS ---
Review of Systems Review of Systems: Yes all other systems are reviewed and are negative [facility] Past Medical History Medical History (Updated 03/12/22 @ 17:12 by NEPTALI Dumont) Anxiety Arthritis Asthma Bipolar disorder COVID-19 vaccine series completed CVA (cerebral vascular accident) Depression Diabetes Fibromyalgia History of blood transfusion Hypertension Hypothyroid Insomnia Low back pain Lymphedema of left leg Migraine ALEJANDRO (obstructive sleep apnea) Panic attack as reaction to stress Sacroiliac joint dysfunction of left side Sacroiliac joint dysfunction of right side Sacroiliitis Status post insertion of nerve stimulator Surgical History H/O arthroscopy of right knee History of endometrial ablation History of hernia surgery History of tonsillectomy and adenoidectomy Hx of appendectomy S/P tubal ligation Social History Social History Are you a primary home care and home health aides teacher to a significant other at home: No Do you presently have visiting nurse or other home services: 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) Patient Tobacco Use Status: Never used Tobacco Use of substances other than those prescribed or required for medical reasons: No Advance Directives: Yes Advance Directives on File: Yes Advance Directives Date on File: 03/12/22 Physical Exam Vital Signs: Vital Signs: Last Vital Signs Temp 97.0 F 03/12/22 11:20 Pulse 89 03/12/22 11:20 Resp 18 03/12/22 11:20 BP 122/66 03/12/22 11:20 Pulse Ox 97 03/12/22 11:20 O2 Del Method 03/12/22 11:20 BMI result Body Mass Index 47.0 Const: General: cooperative and no acute distress Nutritional Appearance: obese morbidly obese Orientation/consciousness: patient oriented x3 Eyes: General: appearance normal, both eyes and all related structures Pupils: Equal, round and reactive pupils present EOM: EOMs intact bilaterally Neck: Neck: Yes full ROM Chest: Chest palpation & inspection: normal inspection of the chest Resp: Effort & Inspection: normal respiratory effort, able to speak in complete sentences and no audible wheezes Cardio: Jugular venous distension: no JVD GI: Inspection: Yes normal to inspection Back/Spine/Pelvis: Other: Mild apparent distress. She is flat in bed. The patellar and Achilles reflexes are sluggish but they are bilateral symmetrical. Motor function: dorsiflexion of the feet symmetrical +2 no weakness detected. same is forward flexion and big toe dorsiflection bilaterally. Sensation for the feet intact distinctions between sharp and dull without difficulty at L4, L4 and S1 dermatomes. most of the tenderness on palpation is in the projection of the sacral ala where the intoducer needle went on posterior surface of sacrum.No bruising detected Dressing change: dressing removed - the wounds are dry and no pathological discharge. minimal redness arround the daria , mild tendeness on palpation but no swelling and nolocal temperature. the wounds are washed with cloraprep , bacitracin dressing applied and taped to the skin with tegaderm film Neuro: General: patient oriented x3 Cranial nerves: Yes CN's II-XII intact bilaterally, Yes Equal, round and reactive pupils present and Yes Ability to bilaterally elevate shoulders present Gait exam (Neuro): Normal gait present Motor exam (neuro): 5/5 motor strength present throughout Extrem: General: No pedal edema Psych: Mental Status: mental status grossly normal Speech and movement: Clear speech present Affect: normal affect Attitude: cooperative Thought process: Normal thought process present Thought content: Normal thought content present Insight: Good insight present (Psych) Judgement: Good judgement present (Psych) Assessment and Plan (1) Spondylosis of lumbosacral spine with radiculopathy: Status: Acute (2) SI (sacroiliac) joint dysfunction: Status: Acute (3) Sacroiliac joint dysfunction of left side: Status: Acute (4) Sacroiliac joint dysfunction of right side: Status: Acute (5) Sacroiliitis: Status: Acute Plan Postop[erative day number 4 after the implant/ revision of the SI joint innervation stimulation stimwave, No signs of the infection, hematoma, neurological damage. Severe pain is due to hyperalgesia. Social situation will be adjusted by placing her to the rehab facility.
[2022-03-12 13:05] LABS: COVID-19 Test Negative (Negative)
[2022-03-12 13:07] VITALS: BP 122/66; PULSE 89; O2SAT 97
[2022-03-12] MEDS: HYDROcodone Bit/Acetam 5/325 TABLET 1 TAB PO ×2 (13:21→20:16)
--- NOTE | 2022-03-12 13:54 | PHA.MEDREC ---
Pharmacy Consult ? Medication Reconciliation Pharmacy has completed the medication reconciliation. Patient had list of medications from [facility]. She was able to confirm any medication that was no on the list. Patient reports her pharmacy told her not to take the Diazepam while she is on her pain medications. Jodi Booker, PharmD
--- NOTE | 2022-03-12 14:33 | MHC.CM.ED ---
Received case management consult from Alexis GUNDERSON. Patient is from home. Came to ER due to back pain. Patient is active with [facility] pain management and had a procedure a couple of days ago. Patient lives alone, ambulates independently and had no services prior to coming to the hospital. PCP verified. Copy of HCP obtained from [facility]. Patient received 2 Pfizer vaccines. Patient has ALEJANDRO and uses a Cpap from [facility]. Patient's daughter will be able to bring CPap. [facility] is patient's first choice, but is agreeable to referrals to all 3 acute rehabs. Referrals made via [facility]. Continue to monitor for d/c needs.
--- NOTE | 2022-03-12 17:12 | MHC.CM.ED ---
Pt to remain in ED overnight. [facility] has offered a bed for tomorrow after 1pm. Pt has accepted. BLS Action booked for 1pm. Pt aware. Unhappy about needing to stay in ED overnight. Pt. in hallway. Will need CPAP. Family to bring in. RN aware of need for CPAP overnight. Pt will need to be in a room tonight. CM to follow for d/c needs.
[2022-03-12 20:00] VITALS: BP 104/55; PULSE 88; RESP 18; O2SAT 96
[2022-03-12 22:14] VITALS: BP 118/75; PULSE 83; RESP 16; TEMP 37; O2SAT 96
[2022-03-13 07:42] VITALS: BP 127/66; PULSE 90; RESP 16; O2SAT 97
[2022-03-13 07:52] LABS: Glucose, Whole Blood 112 mg/dL (60-115)
--- NOTE | 2022-03-13 08:12 | PC.NURSE ---
Report received from Jordana PHELAN. Patient is resting on stretcher at this time. Alert and oriented. Reports minimal back pain. States she did not get much rest overnight and is feeling tired. Respirations regular and even. Skin PWD. Patient is schedule to go to [facility] today at 1pm. Will continue to monitor.
[2022-03-13] MEDS: diazePAM 2 MG TABLET PO (09:53)
[2022-03-13] MEDS: Cholecalciferol (Vitamin D3) 25 MCG TABLET PO (09:53)
[2022-03-13] MEDS: busPIRone HCl 5 MG TABLET PO (09:53)
[2022-03-13] MEDS: Furosemide 20 MG TABLET 10 MG PO (09:53)
[2022-03-13] MEDS: Baclofen 20 MG TABLET PO (09:54)
[2022-03-13] MEDS: Atorvastatin Calcium 40 MG TABLET PO (09:54)
[2022-03-13] MEDS: dilTIAZem HCL CD 120 MG CAP.ER.DEG PO (09:55)
[2022-03-13] MEDS: Topiramate 25 MG TABLET PO (09:55)
[2022-03-13] MEDS: metFORMIN HCl 500 MG TABLET PO (09:55)
[2022-03-13] MEDS: Clindamycin HCL 300 MG CAPSULE PO (09:55)
[2022-03-13] MEDS: Famotidine 20 MG TABLET PO (09:55)
[2022-03-13] MEDS: lisinopriL 10 MG TABLET PO (09:56)
--- NOTE | 2022-03-13 11:27 | PC.NURSE ---
Patient continues to rest on stretcher and reports 5/10 pain on right side. Respirations regular and even. Skin PWD. Patient synthroid not administered due to delay from pharmacy.
[2022-03-13] MEDS: Acetaminophen 325 MG TABLET 650 MG PO (11:43)
[2022-03-13] MEDS: Levothyroxine Sodium 150 MCG TABLET PO (11:43)
[2022-03-13] MEDS: traMADoL HCL 50 MG TABLET 100 MG PO (13:09)
--- NOTE | 2022-03-13 13:35 | PC.NURSE ---
Nurse to nurse given to [facility].
== END 2022-03-13 13:36 | disposition skilled nursing facility (03) ==
PROVIDERS: Physician Assistant; Emergency Provider Emergency Medicine; PCP Internal Medicine
DX: M47.27 Other spondylosis with radiculopathy, lumbosacral region (principal); Z20.822 Contact with and (suspected) exposure to COVID-19; E11.9 Type 2 diabetes mellitus without complications; M46.1 Sacroiliitis, not elsewhere classified; M53.3 Sacrococcygeal disorders, not elsewhere classified; Z79.84 Long term (current) use of oral hypoglycemic drugs; Z79.899 Other long term (current) drug therapy; Z86.73 Personal history of transient ischemic attack (TIA), and cerebral infarction without residual deficits
CPT/HCPCS: 82947; 87635; 97162; 99284; 99285

== ENCOUNTER → 2022-03-21 08:39 | Outpatient (BNVA) | payer OTHER, MEDICARE, MEDICAID, SELFPAY | PROVIDERS: Visit Provider Anesthesiology | DX: M47.27 Other spondylosis with radiculopathy, lumbosacral region (principal); M53.3 Sacrococcygeal disorders, not elsewhere classified; M46.1 Sacroiliitis, not elsewhere classified | CPT/HCPCS: 99212 ==

== ENCOUNTER → 2022-03-28 10:24 | Outpatient (BNVA) | payer MEDICARE, MEDICAID, SELFPAY | PROVIDERS: PCP Internal Medicine; Visit Provider Nurse Practitioner Family | DX: M47.27 Other spondylosis with radiculopathy, lumbosacral region (principal); M53.3 Sacrococcygeal disorders, not elsewhere classified; M46.1 Sacroiliitis, not elsewhere classified | CPT/HCPCS: 99212 ==

== ENCOUNTER → 2022-04-04 10:23 | Outpatient (BNVA) | payer MEDICARE, MEDICAID, SELFPAY | PROVIDERS: PCP Internal Medicine; Visit Provider Anesthesiology | DX: M47.27 Other spondylosis with radiculopathy, lumbosacral region (principal); M53.3 Sacrococcygeal disorders, not elsewhere classified; M46.1 Sacroiliitis, not elsewhere classified | CPT/HCPCS: 99212 ==

== ENCOUNTER → 2024-01-09 13:04 | Outpatient (BNVA) | payer MEDICARE, MEDICAID, SELFPAY | PROVIDERS: PCP Internal Medicine; Visit Provider Anesthesiology ==

== ENCOUNTER → 2024-04-07 08:37 | Outpatient (BNVA) | payer MEDICARE, MEDICAID, SELFPAY | PROVIDERS: PCP Internal Medicine; Visit Provider Anesthesiology | DX: Z46.89 Encounter for fitting and adjustment of other specified devices (principal) | CPT/HCPCS: 99211 ==

== ENCOUNTER 2025-05-02 08:22 | Outpatient (AMB) | payer MEDICARE, MEDICAID, SELFPAY ==
--- OUTSIDE RECORDS SUMMARY | 2024-06-09 15:00 | XMS_ITS | Encounter Summary ---
Author Organization [facility] Address [address] [place] [address] Care Team Providers Care Keno Writer/Runner Name Role Phone Ramo Cason MD Primary Care Provider [phone] Encounter Details Date Type Department Care Team (Late st Contact Info) Description 06/09/2024 3:00 PM EDT Hospital Encounter TH HISTORIC ENCOUNTERS EASTERN CONVERSION ONLY Lidia Jeffries PA [address] [place] [address] Social History Tobacco Use Types Packs/Day Years [...] Record ed Within the last 3 months, ho w many times did you visit the emergency [...] care for your loved ones. For example, child adolescent psychiatrist or elderly care for an older adult? [...] Date Recorded What is your living situation? 0 04/03/2025 Comments Unknown Sex and Gender Information Value Date Recorded Sex Assigned at Female 06/25/2024 11:26 AM EST Legal Sex Female 12:55 AM EST Gender Identity Female 06/25/2024 11:26 AM EST Sexual Orientation Choose not to disclose 2023 11:26 AM EST documented as of this encounter Plan of Treatment Upcoming Encounters Date Type Department Care Team (Late st Contact Info) Description 06/14/2025 8:30 AM EDT Office Visit Gastroenterology [facility] [address] [phone] Lidia Jeffries PA [address] [address] 06/16/2025 8:15 AM EDT Office Visit Pulmonolgy [facility] [address] [phone] Diego Barton MD [address] [address] 07/05/2025 7:30 AM EST Telemedicine Endocrinology [address] [phone] Dorothy Lyman PA [address] [place] [address] 09/30/2025 9:30 AM EST Office Visit Adult [address] [phone] Ramo Cason MD [address] [place] [address] 12/16/2025 9:30 AM EDT Office Visit Adult [address] [phone] Ramo Cason MD [address] [place] [address] 03/24/2026 9:30 AM EDT Office Visit Adult [address] [phone] Ramo Cason MD [address] [place] [address] documented as of this encounter Visit Diagnoses Not on filedocumented in this encounter Care Teams Keno Writer/Runner Relationship Specialty Start Date End Date Ramo Cason MD [address] [place] [phone] PCP - General Internal Medicine 07/08/14 documented as of this encounter
--- NOTE | 2025-05-02 08:29 | A.OFFVIS_ITS ---
Intake Visit Reasons: follow up Allergies lurasidone (Latuda) Allergy (Severe, Verified 04/07/24 08:58) may have caused CVA morphine Allergy (Severe, Verified 04/07/24 08:58) Anaphylaxis codeine (CODEINE) Allergy (Intermediate, Verified 04/07/24 08:58) RASH duloxetine (Cymbalta) Allergy (Intermediate, Verified 04/07/24 08:58) rash, n/v lamotrigine Allergy (Intermediate, Verified 04/07/24 08:58) Rash milnacipran (Savella) Allergy (Intermediate, Verified 04/07/24 08:58) rash,nausea, vomiting Penicillins (PENICILLINS) Allergy (Intermediate, Verified 04/07/24 08:58) NAUSEA & VOMITING, rash pregabalin Allergy (Intermediate, Verified 04/07/24 08:58) rash,n/v sulindac Allergy (Intermediate, Verified 04/07/24 08:58) Nausea, Vomiting amiloride Allergy (Unknown, Verified 04/07/24 08:58) Unknown hydrochlorothiazide Allergy (Unknown, Verified 04/07/24 08:58) Unknown From PERCOCET Allergy (Severe, Uncoded 04/04/22 11:02) rash,n/v Medication List - Last Reconciled 05/02/25 by Gregory Young MD albuterol sulfate 90 mcg/actuation 1 puff inhalation Q4-6H PRN amitriptyline 100 mg PO BEDTIME atorvastatin 40 mg PO DAILY baclofen 20 mg PO BID budesonide-formoterol 160-4.5 mcg/actuation (Symbicort) 2 puffs PO BID buspirone 1 tab PO TID cholecalciferol (vitamin D3) 25 mcg PO DAILY clindamycin HCl 300 mg PO Q6H 15 days cyclosporine 0.05% (Restasis) 1 drp ophthalmic (eye) BID diazepam 2 mg PO BID diltiazem HCl CD 120 mg PO DAILY diltiazem HCl ER (Tiadylt ER) 120 mg PO DAILY famotidine 20 mg PO BID furosemide 10 mg PO DAILY gabapentin 900 mg PO TID galcanezumab-gnlm (Emgality Pen) 120 mg subcut Q4W glyburide 10 mg PO BID ibuprofen 400 mg PO BID PRN insulin aspart U-100 (Novolog FlexPen U-100 Insulin aspart) subcut levocetirizine 5 mg PO BID levothyroxine mcg PO linaclotide (Linzess) 290 mcg PO QAM lisinopril 10 mg PO DAILY metformin 500 mg PO BID montelukast 10 mg PO BEDTIME nystatin 1 appl topical TID PRN pantoprazole 40 mg PO QAM tiotropium bromide 1.25 mcg/actuation (Spiriva Respimat) 2 puffs PO DAILY topiramate 1 tab PO DAILY tramadol 100 mg PO TID PRN zolpidem 1 tab PO BEDTIME PRN HPI Comments Details: 49 yo LH woman with obesity, IDDM, HTN, 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 She is presenting with persistent and severe migraine. She reports worsening headaches since early March, persisting for over ten days, presenting primarily on the right side with symptoms of nausea and numbness. Despite trying multiple medications and therapies, including prednisone and nerve block therapy, the headaches persist, leading to significant fatigue and weakness. Her current medication regimen began on April 06 and includes increased dosing of topiramate, 25 mg twice a day. Her previous medical history is significant for a cerebrovascular accident, managed hypertension, and allergic reactions to various medications, which limits her treatment options. [facility] Medical History (Updated 05/02/25 @ 08:46 by Gregory Young MD) History of blood transfusion Migraine Panic attack as reaction to stress Sacroiliac joint dysfunction of left side Sacroiliac joint dysfunction of right side Sacroiliitis COVID-19 vaccine series completed Lymphedema of left leg Low back pain Diabetes Hypothyroid ALEJANDRO (obstructive sleep apnea) Hypertension Asthma CVA (cerebral vascular accident) Arthritis Fibromyalgia Insomnia Bipolar disorder Depression Anxiety Surgical History Status post insertion of nerve stimulator History of tonsillectomy and adenoidectomy H/O arthroscopy of right knee History of endometrial ablation Hx of appendectomy History of hernia surgery S/P tubal ligation Social History Are you a primary professional healthcare representative to a significant other at home: No Do you presently have visiting nurse or other home services: Yes ([employer] 15 hours/week) Comment: LEFT SIDED WEAKNESS Patient Tobacco Use Status: Never used Tobacco Advance Directives Date on File: 03/12/22 Review of Systems Const Details: - Neurological: Reports persistent headaches, numbness on the right side, fatigue, and weakness. Denies any other neurological symptoms. - Cardiovascular: Denies chest pain or palpitations. - Respiratory: Reports use of albuterol, denies chronic cough or shortness of breath. - Gastrointestinal: Reports frequent nausea, denies vomiting. - Musculoskeletal: Reports weakness, denies joint swelling. - Psychiatric: Reports anxiety, management of depression with medication. Physical Exam Neuro Other: She is alert and awake with normal spontaneity of speech fluency comprehension and affect. Assessment & Plan Assessment & Plan (1) Migraine: Comment: Meds tried: Topamax, Emgality, Fiorecet (may have caused PRES), CT brain WO at [facility] in December 2024: Chronic R MCA/[employer] [place] area encephalomalacia, and mild frontal cortical [place] [facility] [place] Chronic appearing focal R occipital encephalomalacia, ?stroke Code(s): G43.909 - Migraine, unspecified, not intractable, without status migrainosus Category: Medical Qualifiers: Migraine type: chronic migraine (15 or more days per month) without aura Status migrainosus presence: with status migrainosus Intractability: intractable Qualified Code(s): G43.711 - Chronic migraine without aura, intractable, with status migrainosus Plan Impression: a: Chronic migraine w/o aura b: Previous h/o cerebral vasoconstrive syndrome (PRES), probably related to migraine and meds c: PTSD d: Morbid obesity e: Taking multiple meds that limits our ability to prescribe Rec: a: Continue Emgality; this type of meds are relatively safe for her b: Topiramate 25mg bid Coding Level of Care Code Est Pt Level 4 (59953) Diagnoses Intractable chronic migraine without aura and with status migrainosus G43.711 Migraine type: chronic migraine (15 or more days per month) without aura Status migrainosus presence: with status migrainosus Intractability: intractable
--- OUTSIDE RECORDS SUMMARY | 2025-05-02 09:27 | XMS_ITS ---
Author Name [facility] Organization Unknown Care Team Organization Name Specialty Phone Email Start Date End Da te [facility] 04/06/2025 [facility] RAIANNA JAYDEN Primary Care 06/25/2022 4
--- OUTSIDE RECORDS SUMMARY | 2025-05-02 09:27 | XMS_ITS | Clinical Summary ---
Author Organization [facility] Address [address] [place] [address] Phone Care Team Providers Care Electrical Controls Technician Name Role Phone Ramo Cason MD Primary Care Provider Allergies Active Allergy Reactions Criticality Noted Date Comments Acetaminophen Unknown 08/27/2023 Acetaminophen-Codeine 10/26/2014 Rash, vomiting, hives Amiloride 04/09/2016 Kahpeynsft-Zudubnyaphwan-Saj f 10/14/2024 Codeine 07/17/2006 Duloxetine Rash,Unknown High 09/17/2021 Duloxetine Hcl 11/14/2016 Hydrochlorothiazide 04/09/2016 Lamotrigine Rash Medium 01/07/2022 Lurasidone Unknown 07/06/2018 Lurasidone Hcl Other 05/17/2015 Possible cause of stroke Milnacipran Rash High 09/17/2021 Morphine Nausea And Vomiting 05/17/2015 Oxycodone-Acetaminophen 07/17/2006 Penicillins 07/17/2006 Pregabalin 11/14/2016 Sulfacetamide Unknown 10/14/2024 Sulindac Nausea And Vomiting 05/19/2014 Medications lactulose (CHRONULAC) solution Take 15 mL (10 g total) by mouth. 023 Active topiramate (TOPAMAX) 25 mg tablet Take 1 tablet (25 mg total) by mouth 1 (one) time each day. 022 Active metFORMIN (GLUCOPHAGE) 500 mg tablet Take 2 tablets (1,000 mg total) by mouth 2 (two) times a day with meals. 120 tablet 5 024 Active albuterol 2.5 mg /3 mL (0.083 %) nebulizer solution USE 1 VIAL IN NEBULIZER EVERY 4 HOURS - And As Needed 180 each 11 024 Active nystatin (MYCOSTATIN) ointmentIndicati ons:Dermatophyto sis Apply topically 3 (three) times a day. 60 g 024 Active budesonide-formo teroL (SYMBICORT) 160-4.5 mcg/actuation inhaler Inhale 2 puffs by mouth 2 (two) times a day. 024 Active baclofen (LIORESAL) 20 mg tablet Take 1 tablet (20 mg total) by mouth 2 (two) times a day. 180 tablet 1 025 Active pantoprazole (PROTONIX) 40 mg EC tablet Take 1 tablet (40 mg total) by mouth 2 (two) times a day. 180 tablet 3 025 Active insulin aspart (NovoLOG Flexpen U-100 Insulin) 100 unit/mL (3 mL) injection penIndications:T ype 2 diabetes mellitus with other specified complication, with long-term current use of insulin ([facility] V24, CMS/[facility] V28) Inject 3 times a day with meals per sliding scale: 100-149~27 units, 150-200~29 units, 201-250~31 units, 251-300 -33 units, 301-350- 35 units, plus 2 extra units at lunch. Max dose 105 units per day 45 mL 5 025 Active furosemide (Lasix) 20 mg tablet Take 0.5 tablets (10 mg total) by mouth 1 (one) time each day. 45 tablet 1 025 2025 Active montelukast (SINGULAIR) 10 mg tablet TAKE 1 TABLET BY MOUTH EVERYDAY AT BEDTIME 90 tablet 1 025 Active Linzess 290 mcg capsule TAKE 1 CAPSULE (290 MCG) BY MOUTH ONCE A DAY BEFORE BREAKFAST. 90 capsule 3 Active resmetirom (Rezdiffra) 80 mg tablet Take 80 mg by mouth 1 (one) time each day. 90 tablet 3 025 Active pen needle, diabetic (BD Reshma 2nd Gen Pen Needle) 32 gauge x 5/32 needleIndication s:Type 2 diabetes mellitus with diabetic neuropathy, with long-term current use of insulin ([facility] V24, [facility] V28) INJECT UNDER THE SKIN 5 (FIVE) TIMES A DAY. USE 5 TIMES A DAY WITH INSULIN 300 each 1 025 Active galcanezumab-gnl m (Emgality Pen) 120 mg/mL injection pen Inject 1 mL (120 mg total) under the skin every 30 (thirty) days. 3 mL 1 Active dilTIAZem CD (CARDIZEM CD) 120 mg 24 hr capsule Take 1 capsule (120 mg total) by mouth 1 (one) time each day. 90 capsule 1 025 Active atorvastatin (LIPITOR) 40 mg tablet Take 1 tablet (40 mg total) by mouth at bedtime. 90 tablet 1 025 Active levocetirizine (XYZAL) 5 mg tablet TAKE 1 TABLET BY MOUTH EVERY EVENING 90 tablet 1 025 Active levothyroxine (SYNTHROID, LEVOTHROID) 150 mcg tabletIndication s:Type 2 diabetes mellitus with hyperglycemia ([facility] V24, [facility] V28) Take 1 tablet Friday through Friday, half a tablet on Sundays. 90 tablet 1 025 Active Symbicort 160-4.5 mcg/actuation inhaler INHALE 2 PUFFS INTO THE LUNGS TWICE A DAY 30.6 each 025 Active lisinopriL (PRINIVIL,ZESTRI L) 10 mg tablet Take 1 tablet (10 mg total) by mouth 1 (one) time each day. 90 tablet 025 Active gabapentin (NEURONTIN) 300 mg capsule Take 3 capsules (900 mg total) by mouth 3 (three) times a day. 270 capsule Active traMADoL (ULTRAM) 50 mg tablet Take 2 tablets by mouth 3 times per day. Max 6 tablets/day 168 tablet 025 Active semaglutide (Ozempic) 2 mg/dose (8 mg/3 mL) injection pen Inject 2 mg under the skin every 7 (seven) days. 3 mL 11 Active topiramate (TOPAMAX) 25 mg tablet Take 1 tablet (25 mg total) by mouth 2 (two) times a day. 180 each Active zolpidem (AMBIEN) 5 mg tablet Take 1 tablet (5 mg total) by mouth at bedtime as needed for sleep. Max Daily Amount: 5 mg 28 tablet Active insulin glargine (Lantus Solostar U-100 Insulin) 100 unit/mL (3 mL) injection penIndications:T ype 2 diabetes mellitus with other specified complication, with long-term current use of insulin (CMS/HCC V24, CMS/HCC V28) INJECT 100 UNITS in the morning 45 mL 11 Active lisinopriL (PRINIVIL,ZESTRI L) 10 mg tablet TAKE 1 TABLET BY MOUTH EVERY DAY 90 tablet 1 2024 Discontinued(R eorder) semaglutide (Ozempic) 1 mg/dose (4 mg/3 mL) injection pen Inject 1 mg under the skin every 7 (seven) days. 9 mL 3 2024 Discontinued(F ormulary change) gabapentin (NEURONTIN) 300 mg capsule TAKE 3 CAPSULES BY MOUTH 3 TIMES A DAY. 270 capsule 1 2024 Discontinued(R eorder) insulin glargine (Lantus Solostar U-100 Insulin) 100 unit/mL (3 mL) injection penIndications:T ype 2 diabetes mellitus with other specified complication, with long-term current use of insulin (CMS/HCC V24, CMS/HCC V28) INJECT 100 UNITS in the morning 2024 Discontinued(R eorder) traMADoL (ULTRAM) 50 mg tablet Take 2 tablets by mouth 3 times per day. Max 6 tablets/day 168 tablet 025 2024 Discontinued(R eorder) butalbital-aceta minophen-caffein e (FIORICET, ESGIC) 50-325-40 mg per tablet Take 1 tablet by mouth 2 (two) times a day if needed for headaches. 7 tablet 025 2024 Discontinued zolpidem (AMBIEN) 5 mg tablet Take 1 tablet (5 mg total) by mouth at bedtime as needed for sleep. Max Daily Amount: 5 mg 28 tablet 025 2024 Discontinued(R eorder) methylPREDNISolo ne (MEDROL) 4 mg tablet Take 6 tabs PO on day 1, 5 tabs PO on day 2, 4 tabs PO on day 3, 3 tabs PO on day 2, 2 tabs PO on day 5 and 1 tab PO on day 6. 21 tablet 025 2024 Discontinued methylPREDNISolo ne (Medrol, [place],) 4 mg tablet Follow schedule on package instructions 1 each 025 2024 Active Problems Problem Noted Date Diagnosed Date Bipolar disorder, mixed ([facility] V24, [facility] V2 8) 10/06/2023 Fibromyalgia 10/06/2023 Family history of breast cancer 10/06/2023 Overview (10/06/2023): Empower neg, T-C 8.9% History of CVA (cerebrovascular accident) 2023 Multiple environmental allergies 10/06/2023 ASCUS of cervix with negative high risk HPV 05/0 11/2022 Overview (10/06/2023): Repeat cotesting in 3 years Diabetes mellitus ([facility] V24, [facility] V28) Assessment & Plan (12/02/2024 8:41 AM EDT): Chronic back pain 05/06/2022 Neuropathy 05/06/2022 COVID-19 09/18/2021 Overview (10/06/2023): DX: 08/2021. Hospitalized [facility]. CT Angiogram. Negative PE. +Goundglass opacities consistent with Covid. 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 Complicated migraine 11/18/2016 Herpes labialis 04/09/2016 Hemiparesis affecting left s izabella as late effect of cerebrovascular accident ([facility] V24, [facility] V28) 01/26/2016 Incisional hernia 12/13/2014 Obstructive sleep apnea, adult 10/19/2014 Overview (10/06/2023): On cpap SMS Polysomnogram: Date 06/03/2011; Wt 201#; BMI 37; SE 79%; SM 85%; REM 7%; AHI 6, REM AHI 7, Central apneas 6; Obstructive apneas 2; Mixed apneas 5; hypopneas 28; RERAs 80; average oxygen saturation 97% (lowest 92%); PLMs 74. Aphthous ulcer 11/06/2013 Anemia 11/06/2013 Anxiety 11/06/2013 Insomnia 11/06/2013 Assessment & Plan (12/02/2024 8:41 AM EDT): Arthritis 11/06/2013 Chronic sinusitis 11/06/2013 Hypertension 07/03/2011 Assessment & Plan (12/02/2024 8:41 AM EDT): Hypothyroidism 01/14/2006 Assessment & Plan (12/02/2024 8:41 AM EDT): Depression 01/14/2006 Asthma 01/14/2006 Encounters Date Type Department Care Team Description 04/06/2025 7:30 AM EDT Office Visit Adult Medicine [address] [phone] Thierry Ramirez PA Primary hypertension (Primary Dx); Type 2 diabetes mellitus with other specified complication, unspecified whether long-term insulin use ([facility] V24, [facility] V28); Hypercholesterolemia; Hypothyroidism, unspecified type; Primary insomnia; Other chronic pain; Encounter for long-term (current) use of medications; Anxiety; Lymphedema 04/04/2025 Telephone Adult Medicine [facility] [address] [place], [place] [phone] Papo CaityEARNEST hoover 02/28/2025 Telephone Adult Medicine [facility] [address] [place] [address] Keren Steele [place] 02/08/2025 Telephone Gastroenterology - [place] 175 [facility] [address] [facility] [address] [place] [address] Lidia Jeffries PA from Last 3 Months Immunizations Name Administration Dates Next Due Influenza trivalent, 0.5mL, preservative free (Fluarix; FluLaval; Fluzone) ages 6mo and older (Afluria) 3 years and older 05/19/2023,07/05/2022,05/09/2020 Tdap Tetanus diptheria acell ular pertussis (Boostrix; Adacel) 7yo and older 03/18/2013 Surgical History Surgery Date Site/Laterality Comments TONSILLECTOMY PROCEDURE: HISTORICAL TONSILLECTOMY ENDOMETRIAL ABLATION 2005 PROCEDURE: IN ENDOMETRIAL ABLTJ THERMAL W/O HYSTEROSCOPIC GUID; COMMENT: [facility], blood transfusions TUBAL LIGATION PROCEDURE: HISTORICAL TUBAL LIGATION OTHER SURGICAL HISTORY PROCEDURE: ---- OTHER ----; COMMENT: incisional hernia repair APPENDECTOMY PROCEDURE: HISTORICAL APPENDECTOMY KNEE SURGERY Right PROCEDURE: HISTORICAL KNEE SURGERY; COMMENT: knee X 4- right COLONOSCOPY 07/06/2018 PROCEDURE: HISTORICAL COLONOSCOPY; COMMENT: [email or web address]; melanosis coli, internal hemorrhoids, no polyps. Medical History Medical History Date Comments Anemia 11/06/2013 DX:Anemia Anxiety 11/06/2013 DX:Anxiety Aphthous ulcer 11/06/2013 DX:Aphthous ulce r Arthritis 11/06/2013 DX:Arthritis Asthma 01/14/2006 DX:Asthma Bipolar disorder, mixed (CMS /HCC V24, CMS/HCC V28) DX:Bipolar disorder, mixed ( [facility]) Chronic sinusitis 11/06/2013 DX:Chronic sin usitis Complicated migraine 11/18/2016 DX:Complica angel migraine Depressive disorder 01/14/2006 DX:Depressiv e disorder Fibromyalgia DX:Fibromyalgia Hemiparesis affecting left s izabella as late effect of cerebrovascular accident (CMS/HCC V24, CMS/HCC V28) 01/26/2016 DX:Hemiparesis aff ecting left side as late effect of cerebrovascular accident (HCC) Herpes labialis 04/09/2016 DX:Herpes labial is History of CVA (cerebrovascu lar accident) 11/14/2016 DX:History of CVA (cerebrova scular accident) Hypertension 07/03/2011 DX:Hypertension Hypothyroidism 01/14/2006 DX:Hypothyroidis m Incisional hernia 12/13/2014 DX:Incisional hernia Insomnia 11/06/2013 DX:Insomnia Multiple environmental allergies 11/21/2016 DX:Multiple environmental allergies Obstructive sleep apnea, adult 10/19/2014 D X:Obstructive sleep apnea, adult; COMMENT: On cpap 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 DX:Reversible cerebrovascula r vasoconstriction syndrome Diabetes mellitus type 2, uncontrolled DX:Diabetes mellitus type 2, uncontrolled Family History Medical History Relation Name Comments Breast cancer Aunt 1 maternal Colon cancer Aunt 2 Uterine cancer Aunt 2 also colon ca ncer (mother's side) Arthritis Father DM II Coronary artery disease Father Stroke Maternal Grandmother Arthritis Mother HTN, afib Cancer of Small Bowel Neg Hx Kidney cancer Neg Hx Pancreatic cancer Neg Hx Relation Name Status Comments Aunt 1 Aunt 2 Father Alive Maternal Grandmother Mother Alive Social History Tobacco Use Types Packs/Day Years Used Date Smoking Tobacco: Never Smokeless Tobacco: Never Tobacco Cessation:Counseling Given: Not Answered Alcohol Use Standard Drinks/Week Comments No 0 [...] for your loved ones. For example, child psychology teacher or elderly care for an older adult? [...] not to disclose 2023 11:26 AM EST Obstetrics History Last Filed Vital Signs Vital Sign Reading Time Taken Comments Blood Pressure 132/74 04/06/2025 7:33 AM EDT Pulse 88 04/06/2025 7:33 AM EDT Temperature 35.9 C (96.7 F) 04/06/2025 7:33 AM EDT Respiratory Rate 20 04/06/2025 7:33 AM EDT Oxygen Saturation 96% 04/06/2025 7:33 AM EDT Inhaled Oxygen Concentration - - Weight 112 kg (247 lb) 04/06/2025 7:33 AM EDT Height 154.9 cm (5' 1 ) 04/06/2025 7:33 AM EDT Body Mass Index 46.67 04/06/2025 7:33 AM EDT Plan of Treatment Upcoming Encounters Date Type Department Care Team (Late st Contact Info) Description 06/14/2025 8:30 AM EDT Office Visit Gastroenterology - [place] [address] [phone] Lidia Jeffries PA [address] [address] 06/16/2025 8:15 AM EDT Office Visit Pulmonolgy - [place] [address] [phone] Diego Barton MD [address] [address] 07/05/2025 7:30 AM EST Telemedicine [address] [phone] Dorothy Lyman PA [address] [place] [address] 09/30/2025 9:30 AM EST Office Visit Adult [address] [phone] Ramo Cason MD [address] [place] [address] 12/16/2025 9:30 AM EDT Office Visit Adult Medicine [address] [phone] Ramo Cason MD [address] [place] [phone] 03/24/2026 9:30 AM EDT Office Visit Adult Medicine [address] [phone] Ramo Cason MD [address] [place] [address] Health Maintenance Due Date Last Done Comments Hepatitis A Vaccines (1 of 2 - Risk 2-dose series) 1994 Hepatitis B Vaccines (1 of 3 - 19+ 3-dose series) 1994 Pneumococcal Vaccine: 50+ Years (1 of 2 - PCV) 1994 Cervical Cancer Screening: HPV 01/20/1996 HIV Screening 07/27/2022 Hepatitis C Screening 07/27/2022 Diabetes: Annual Foot Exam 09/25/2022 09/25/2021 Breast Cancer Screening 02/07/2023 02/07/2021, 08/27 DTaP,Tdap,and Td Vaccines (2 - Td or Tdap) 03/18/2023 03/18/2013 Diabetes: Annual Retina Eye Exam 05/30/2024 05/30/2023 Zoster Vaccines (1 of 2) 2025 COVID-19 Vaccine ( - season) 2025 12/28/2020, 12/04/2020 Influenza Vaccine (#1) 2025 , 05/29/2023, 05/19/2023, Additional history exists Diabetes: Blood Sugar Control Test (HGBA1C) 07/29/2025 01/27/2025, 11/11/2024, 05/25/2024, Additional history exists Diabetes: Annual Urine Albumin-Creatinine Ratio (uACR) 11/11/2025 11/11/2024 Diabetes: Annual GFR (Glomerular Filtration Rate) 11/11/2025 11/11/2024, 05/25/2024, 02/16/2024 Hypertension/CHF/CAD Annual BMP Blood Test 11/11/2025 11/11/2024, 05/25/2024, 02/16/2024 Medicare Annual Wellness Visit 12/02/2025 12/02/2024 Social Influencers of Health Screening 04/03/2026 04/03/2025 Colorectal Cancer Screening: Colonoscopy 07/06/2028 07/06/2018 Cholesterol Screening (Lipid Panel) 11/11/2029 11/11/2024, 05/25/2024, 02/16/2024 Depression Screening Completed 04/03/2025 HIB Vaccines Aged Out No longer eligi ble based on patient's age to complete this topic HPV Vaccines Aged Out No longer eligi ble based on patient's age to complete this topic IPV Vaccines Aged Out No longer eligi ble based on patient's age to complete this topic MMR Vaccines Aged Out No longer eligi ble based on patient's age to complete this topic Meningococcal ACWY Vaccine Aged Out N o longer eligible based on patient's age to complete this topic Meningococcal B Vaccine Aged Out No l onger eligible based on patient's age to complete this topic RSV Immunization Patients Under 20 months Aged Out No longer eligible based on patient's age to complete this topic Varicella Vaccines Aged Out No longer eligible based on patient's age to complete this topic Procedures Procedure Name Priority Date/Time Associated Diagnosis Comments DRUG ABUSE SCREEN 8A PANEL, URINE Routine 04/07/2025 8:58 AM EDT Other chronic pain Encounter for long-term (current) use of medications HEMOGLOBIN A1C Routine 01/27/2025 9:58 AM EDT Type 2 diabetes mellitus with other specified complication, with long-term current use of insulin ([facility] V24, CMS/[facility] V28) MICROALBUMIN CREATININE URINE RATIO Routine 11/11/2024 8:55 AM EDT Type 2 diabetes mellitus with other specified complication, unspecified whether manager terminal insulin use (CMS/[facility] V24, CMS/[facility] V28) COMPREHENSIVE METABOLIC PANEL Routine 11/11/2024 8:55 AM EDT Encounter for long-term (current) use of medications LIPID PANEL WITH REFLEX TO DIRECT LDL Routine 11/11/2024 8:55 AM EDT Hypercholesterolemi a SCREENING MAMMOGRAPHY BI 2-VIEW BREAST INC CAD Routine 02/07/2021 11:21 AM EDT Encounter for screening mammogram for malignant neoplasm of breast from Last 3 Months or Most Recently Relevant to Health Maintenance Results * (ABNORMAL) Drug abuse screen 8a panel, urine (04/07/2025 8:58 AM EDT) Amphetamine Screen, Ur Negative Negative LAB CHEMISTRY METHOD 12:51 PM EDT [facility] Comment:Certain OTC medicati ons containing ephedrine, phenylephrine, pseudoephedrine and phenylpropanolamine can cause false positive results. Barbiturate Screen, Ur Positive(A ) Negative LAB CHEMISTRY METHOD 12:51 PM EDT [facility] Benzodiazepine Screen, Ur Positive(A ) Negative LAB CHEMISTRY METHOD 12:51 PM EDT [facility] Cocaine Screen, Ur Negative Negative [facility] Opiate Screen, Ur Negative Negative LAB CHEMISTRY METHOD 12:51 PM [facility] Cannabinoid (THC) Screen, Ur Negative Negative LAB CHEMISTRY METHOD 12:51 PM T [facility] Comment:Specimens from patie nts taking pantoprazole sodium (Protonix) have been shown to produce false positive results. Oxycodone Screen, Ur Negative Negative LAB CHEMISTRY METHOD 12:51 PM EDT [facility] Fentanyl, Ur Negative Negative LAB CHEMISTRY METHOD 5 12:51 PM [facility] Urine Urine specimen obtained by clean catch procedure / Unknown Non-blood Collection / Unknown 04/07/2025 8:58 AM EDT 04/07/2025 8:59 AM EDT Narrative [facility] - 04/07/2025 12:51 PM EDT Assay cutoffs: Amphetamines 1000 ng/mL Barbiturates 200 ng/mL Benzodiazepines 200 ng/mL Cocaine 300 ng/mL Fentanyl 1 ng/mL Opiates 300 ng/mL Oxycodone 100 ng/mL THC 50 ng/mL Semi-quantitative assay for screening purposes only. Unconfirmed screening result should not be used for non-medical purposes. *ALTERNATE METHOD CONFIRMATION DONE UPON REQUEST ONLY* Thierry GUNDERSON LAB URINE ORDERABLES Fi nal Result Performing Organization Address [facility] [address]/[facility] Co de Phone Number [facility] [address] [place] [address], [place] [phone] * (ABNORMAL) Hemoglobin A1c (01/27/2025 9:58 AM EDT) Pathologist [facility] Hemoglobin A1C 7.2(H) <6.5 % LAB CHEMISTRY METHOD 01/27/2025 1:54 PM EDT [facility] Mean Bld Glu Estim. 160 mg/dL LAB CHEMISTRY METHOD 01/27/2025 1:54 PM EDT [facility] Blood Venous blood specimen / Unknown Venipuncture / Unknown 01/27/2025 9:58 AM EDT 01/27/2025 9:58 AM EDT Dorothy GUNDERSON LAB BLOOD ORDERABLES Final Result Performing Organization Address [facility] [address]/[facility] de Phone Number [facility] [address] [place] [address], [place] [phone] * (ABNORMAL) Lipid panel with reflex to direct LDL (11/11/2024 8:55 AM EDT) Cholesterol 109 0 - 200 mg/dL LAB CHEMISTRY METHOD 11/11/2024 1:43 PM EDT [facility] Triglycerides 120 0 - 150 mg/dL LAB CHEMISTRY METHOD 11/11/2024 1:43 PM EDT [facility] HDL 36(L) >=40 mg/dL LAB CHEMISTRY METHOD 11/11/2024 1:43 PM EDT [facility] LDL Calculated 49 0 - 100 mg/dL LAB CHEMISTRY METHOD 11/11/2024 1:43 PM EDT [facility] VLDL Cholesterol Chris 24 mg/dL LAB CHEMISTRY METHOD 11/11/2024 1:43 PM EDT [facility] Non HDL Chol. (LDL+VLDL) 73 <145 mg/dL LAB CHEMISTRY METHOD 11/11/2024 1:43 PM EDT [facility] Chol/HDL Ratio 3.0 0.0 - 4.4 LAB CHEMISTRY METHOD 11/11/2024 1:43 PM EDT [facility] Blood Venous blood specimen / Unknown Venipuncture / Unknown 11/11/2024 8:55 AM EDT 11/11/2024 8:55 AM EDT us Ramo Cason MD LAB BLOOD ORDERABLES Final Resu lt [facility] [address] [place] [address], * Microalbumin creatinine urine ratio (11/11/2024 8:55 AM EDT) Creatinine, Urine 32.0 mg/dL LAB CHEMISTRY METHOD 11/11/2024 1:10 PM EDT [facility] Microalb, Ur <5.0 0.0 - 29.0 mg/L LAB CHEMISTRY METHOD 11/11/2024 1:10 PM EDT [facility] Microalb/Creat Ratio <16 <30 mg/g creat LAB CHEMISTRY METHOD 11/11/2024 1:10 PM EDT [facility] Urine Urine specimen obtained by clean catch procedure / Unknown Non-blood Collection / Unknown 11/11/2024 8:55 AM EDT 11/11/2024 8:55 AM EDT us Ramo Cason MD LAB URINE ORDERABLES Final Resu lt [facility] [address] [place] [address], [place] [phone] * (ABNORMAL) Comprehensive metabolic panel (11/11/2024 8:55 AM EDT) Sodium 134 133 - 145 mmol/L LAB CHEMISTRY METHOD 11/11/2024 1:43 PM EDT [facility] Potassium 3.5 3.5 - 5.5 mmol/L LAB CHEMISTRY METHOD 11/11/2024 1:43 PM [facility] Chloride 104 96 - 110 mmol/L LAB CHEMISTRY METHOD 11/11/2024 1:43 PM [facility] CO2 24 21 - 32 mmol/L LAB CHEMISTRY METHOD 11/11/2024 1:43 PM [facility] Anion Gap 6 3 - 11 LAB CHEMISTRY METHOD 11/11/2024 1:43 PM [facility] Glucose 138(H) 70 - 100 mg/dL LAB CHEMISTRY METHOD 11/11/2024 1:43 PM [facility] BUN 9 5 - 25 mg/dL LAB CHEMISTRY METHOD 11/11/2024 1:43 PM [facility] Creatinine 0.77 0.50 - 1.10 mg/dL LAB CHEMISTRY METHOD 11/11/2024 1:43 PM [facility] eGFR 95 >=60 mL/min/1. 73m2 LAB CHEMISTRY METHOD 11/11/2024 1:43 PM [facility] Comment:Calculation based on the Chronic Kidney Disease Epidemiology Collaboration (CKD-EPI) equation refit without adjustment for race. BUN/Creatinine Ratio 11.7 LAB CHEMISTRY METHOD 11/11/2024 1:43 PM [facility] Calcium 9.1 8.5 - 10.5 mg/dL LAB CHEMISTRY METHOD 11/11/2024 1:43 PM EDT [facility] AST (SGOT) 50(H) 10 - 42 unit/L LAB CHEMISTRY METHOD 11/11/2024 1:43 PM EDT [facility] ALT (SGPT) 54 10 - 60 unit/L LAB CHEMISTRY METHOD 11/11/2024 1:43 PM EDT [facility] Alkaline Phosphatase 141(H) 42 - 121 unit/L LAB CHEMISTRY METHOD 11/11/2024 1:43 PM EDT [facility] Total Protein 7.2 6.0 - 8.0 g/dL LAB CHEMISTRY METHOD 11/11/2024 1:43 PM EDT [facility] Albumin 3.5 3.2 - 5.0 g/dL LAB CHEMISTRY METHOD 11/11/2024 1:43 PM EDT [facility] Total Bilirubin 0.6 0.0 - 1.4 mg/dL LAB CHEMISTRY METHOD 11/11/2024 1:43 PM EDT [facility] Blood Venous blood specimen / Unknown Venipuncture / Unknown 11/11/2024 8:55 AM EDT 11/11/2024 8:55 AM EDT us Ramo Cason MD LAB BLOOD ORDERABLES Final Resu lt [facility] [address] [place] [address], * SCREENING MAMMOGRAPHY BI 2-VIEW BREAST [facility] (02/07/2021 11:21 AM EDT) Anatomical Region Laterality Modality Radiographic Akiko ging 08/27/2019 9:17 AM EST Narrative 02/07/2021 4:02 PM EDT This is a summary report. The complete report is available in the patient's medical record. If you cannot access the medical record, please contact the sending organization for a detailed fax or copy. Full field digital screening 2D and tomosynthesis mammography, reviewed with CAD and compared to previous. The breasts are composed of fatty and fibroglandular tissue. No suspicious mass, architectural distortion or suspicious calcifications are identified. IMPRESSION: : No mammographic evidence of malignancy. BIRADS 1-Negative; N. 5 year breast cancer risk assessment 0.6 % Lifetime breast cancer risk assessment 6.9 % Breast cancer risk category Low (<15%) Procedure Note Patricia Guerrero MD - 08/06/2022 This is a summary report. The complete report is available in thepatient's medical record. If you cannot access the medical record, pleasecontact the sending organization for a detailed fax or copy. Full field digital screening 2D and tomosynthesis mammography, reviewedwith CAD and compared to previous. The breasts are composed of fatty andfibroglandular tissue. No suspicious mass, architectural distortion orsuspicious calcifications are identified. IMPRESSION: : No mammographic evidence of malignancy. BIRADS 1-Negative; N. 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 Health Care Decision (hx) 11/07/2019 AD PATEL DIRECTIVE Health Care Decision (hx) 11/07/2019 AD PATEL DIRECTIVE Health Care Decision (hx) 11/07/2019 AD PATEL DIRECTIVE Health Care Decision (hx) 11/07/2019 AD PATEL DIRECTIVE Health Care Decision (hx) 11/07/2019 AD PATEL DIRECTIVE Health Care Decision (hx) 11/07/2019 AD PATEL DIRECTIVE Health Care Decision (hx) 11/07/2019 AD PATEL DIRECTIVE Health Care Decision (hx) 11/07/2019 AD PATEL DIRECTIVE Health Care Decision (hx) 11/07/2019 AD PATEL DIRECTIVE Health Care Decision (hx) 11/07/2019 AD PATEL DIRECTIVE Health Care Decision (hx) 11/07/2019 AD PATEL DIRECTIVE Health Care Decision (hx) 11/07/2014 AD PATEL DIRECTIVE Health Care Decision (hx) 11/07/2014 AD PATEL DIRECTIVE Health Care Decision (hx) 11/07/2014 AD PATEL DIRECTIVE Health Care Decision (hx) 11/07/2014 AD PATEL DIRECTIVE Health Care Decision (hx) 11/07/2014 AD PATEL DIRECTIVE Health Care Decision (hx) 11/07/2014 AD PATEL DIRECTIVE Health Care Decision (hx) 11/07/2014 AD PATEL DIRECTIVE Health Care Decision (hx) 11/07/2014 AD PATEL DIRECTIVE Health Care Decision (hx) 11/07/2014 AD PATEL DIRECTIVE Health Care Decision (hx) 11/07/2014 AD PATEL DIRECTIVE Health Care Decision (hx) 11/07/2014 AD PATEL DIRECTIVE Health Care Decision (hx) 11/07/2014 AD PATEL DIRECTIVE Health Care Decision (hx) 11/02/2014 AD PATEL DIRECTIVE Health Care Decision (hx) 11/02/2014 AD PATEL DIRECTIVE Health Care Decision (hx) 11/02/2014 AD PATEL DIRECTIVE Health Care Decision (hx) 11/02/2014 AD PATEL DIRECTIVE Health Care Decision (hx) 11/02/2014 AD PATEL DIRECTIVE Health Care Decision (hx) 11/02/2014 AD PATEL DIRECTIVE Health Care Decision (hx) 11/02/2014 AD PATEL DIRECTIVE Health Care Decision (hx) 11/02/2014 AD PATEL DIRECTIVE Health Care Decision (hx) 11/02/2014 AD PATEL DIRECTIVE Health Care Decision (hx) 11/02/2014 AD PATEL DIRECTIVE Health Care Decision (hx) 11/02/2014 AD PATEL DIRECTIVE Health Care Decision (hx) 11/02/2014 AD PATEL DIRECTIVE * Full Code - Confirmed (Latest Code Status on File) Date Activated Date Inactivated Comments 12/02/2024 8:39 AM This code stat us was ascertained in the following way: Code status discussion: discussion with patient To update the patient's code status, place a code status order. Do not modify or discontinue any currently active code status orders. Care Teams Electrical Controls Technician Relationship Specialty Start Date End Date Ramo Cason MD [address] [place] [phone] PCP - General Internal Medicine 07/08/14
== END 2025-05-02 08:54 | disposition home or self-care (01) ==
LOC: HO.HSM 08:23
PROVIDERS: PCP Internal Medicine; Referring Provider Internal Medicine; Visit Provider Psychiatry & Neurology Neurology
DX: G43.711 Chronic migraine without aura, intractable, with status migrainosus (principal)
CPT/HCPCS: 99214

== ENCOUNTER → 2025-05-02 08:22 | Outpatient (BNVA) | payer MEDICARE, MEDICAID, SELFPAY | PROVIDERS: PCP Internal Medicine; Referring Provider Internal Medicine; Visit Provider Psychiatry & Neurology Neurology | DX: G43.711 Chronic migraine without aura, intractable, with status migrainosus (principal); E66.09 Other obesity due to excess calories; F43.10 Post-traumatic stress disorder, unspecified | CPT/HCPCS: 99212 ==

== ENCOUNTER 2025-06-28 08:01 | Outpatient (AMB) | payer MEDICARE, MEDICAID, SELFPAY ==
--- OUTSIDE RECORDS SUMMARY | 2024-06-09 14:00 | XMS_ITS | Encounter Summary ---
Author Organization [facility] Address [address] [place] [address] Care Team Providers Care Data Analytics Analyst Name Role Phone Ramo Cason MD Primary Care Provider Encounter Details Date Type Department Care Team (Late st Contact Info) Description 06/09/2024 3:00 PM EDT Hospital Encounter TH HISTORIC ENCOUNTERS EASTERN CONVERSION ONLY Lidia Jeffries PA [address] [place] [address] Social History Tobacco Use Types Packs/Day Years Used Date Smoking Tobacco: Never Smokeless Tobacco: Never Alcohol Use Standard Drinks/Week Comments No 0 (1 standard drink = 0.6 oz pur e alcohol) Housing Instability Answer Date Recorde d Are you worried that in the next 2 months you may not have stable housing? No 04/03/2025 Food Access & Nutrition Answer Date Rec orded Do you have access to a vari ety of food including fruits and vegetables? Yes 04/03/2025 Access to Healthcare Answer Date Record ed Within the last 3 months, blane shay many times did you visit the emergency department for your medical care? 0 12/01/2024 Health Literacy Answer Date Recorded How often do you need to hav e someone help you when you read instructions, pamphlets, or other written material from your doctor or pharmacy? Often 04/03/2025 Caregiver: How often do you need to have someone help you when you read instructions, pamphlets, or other written material from your doctor or pharmacy? Not on file 04/03/2025 Financial Risk Answer Date Recorded How hard is it for you to pa y for the very basics like food, housing, medical care, and air conditioning / heating? Not very hard 04/03/2025 Transportation Answer Date Recorded Has the lack of transportati on kept you from meetings, work, or from getting things needed for daily living? No Has the lack of transportati on kept you from medical appointments or from getting medications? No 04/03/2025 Social Isolation Answer Date Recorded How often do you feel lonely or isolated from those around you? Sometimes 04/03/2025 Food Risk Answer Date Recorded Within the past 12 months we worried whether our food would run out before we got money to buy more. Never true 025 Within the past 12 months th e food we bought just didn't last and we didn't have money to get more. Patient declined 03/18 Dependent Care Answer Date Recorded Do you need help finding or paying for care for your loved ones. For example, school childcare attendant or elderly care for an older adult? No 04/03/2025 Education Answer Date Recorded Do you think completing more education or training, like finishing a GED, going to college, or learning a trade, would be helpful for you? No 04/03/2025 Employment and Income Answer Date Recor ded During the last four weeks, have you been actively looking for work? No 04/03/2025 Living Situation Answer Date Recorded What is your living situation? Unrecognized valu e 04/03/2025 Comments Unknown Sex and Gender Information Value Date Recorded Sex Assigned at Female 06/25/2024 11:26 AM EST Legal Sex Female 12:55 AM EST Gender Identity Female 06/25/2024 11:26 AM EST Sexual Orientation Choose not to disclose 2023 11:26 AM EST documented as of this encounter Plan of Treatment Upcoming Encounters Date Type Department Care Team ([facility] st Contact Info) Description 07/05/2025 7:30 AM EST Office Visit [facility] [address] [place] [address] [phone] Dorothy Lyman PA [address] [place] [address] 09/30/2025 9:30 AM EST Office Visit Adult [address] [phone] Ramo Cason MD [address] [place] [address] 12/16/2025 9:30 AM EDT Office Visit [address] [phone] Ramo Cason MD [address] [place] [address] 01/31/2026 8:30 AM EDT Office Visit Gastroenterology - [address] [place] [address] [address] [facility] [address] [place] [phone] Lidia Jeffries PA [address] [address] 03/24/2026 9:30 AM EDT Office Visit [address] [phone] Ramo Cason MD [address] [place] [address] 06/16/2026 8:15 AM EDT Office Visit Pulmonology - [place] [address] [facility] [address] [place] [phone] Diego Barton MD [address] [place] [phone] documented as of this encounter Visit Diagnoses Not on filedocumented in this encounter Care Teams Data Analytics Analyst Relationship Specialty Start Date End Date Ramo Cason MD [address] [place] [address] PCP - General Internal Medicine 07/08/14 documented as of this encounter
--- OUTSIDE RECORDS SUMMARY | 2025-06-28 08:04 | XMS_ITS | Clinical Summary ---
Author Organization [facility] Address [address] [place] [address] Phone Care Team Providers Care Associate Sales Manager Name Role Phone Ramo Cason MD Primary Care Provider [phone] Allergies Active Allergy Reactions Criticality Noted Date Comments Acetaminophen Unknown 08/27/2023 Acetaminophen-Codeine 10/26/2014 Rash, vomiting, hives Amiloride 04/09/2016 Ppokvmgbku-Ngtstbybswkkt-Tya f 10/14/2024 Codeine 07/17/2006 Duloxetine Rash,Unknown High 09/17/2021 Duloxetine Hcl 11/14/2016 Hydrochlorothiazide 04/09/2016 Lamotrigine Rash Medium 01/07/2022 Lurasidone Unknown 07/06/2018 Lurasidone Hcl Other 05/17/2015 Possible cause of stroke Milnacipran Rash High 09/17/2021 Morphine Nausea And Vomiting 05/17/2015 Oxycodone-Acetaminophen 07/17/2006 Penicillins 07/17/2006 Pregabalin 11/14/2016 Sulfacetamide Unknown 10/14/2024 Sulindac Nausea And Vomiting 05/19/2014 Medications lactulose (CHRONULAC) solution Take 15 mL (10 g total) by mouth. 03/31/20 23 Active topiramate (TOPAMAX) 25 mg tablet Take 1 tablet (25 mg total) by mouth 1 (one) time each day. 03/29/20 22 Active metFORMIN (GLUCOPHAGE) 500 mg tablet Take 2 tablets (1,000 mg total) by mouth 2 (two) times a day with meals. 120 tablet 5 06/30/20 24 Active nystatin (MYCOSTATIN) ointmentIndicati ons:Dermatophyto sis Apply topically 3 (three) times a day. 60 g 08/12/20 24 Active insulin aspart (NovoLOG Flexpen U-100 Insulin) 100 unit/mL (3 mL) injection penIndications:T ype 2 diabetes mellitus with other specified complication, with long-term current use of insulin ([facility] V24, [facility] V28) Inject 3 times a day with meals per sliding scale: 100-149~27 units, 150-200~29 units, 201-250~31 units, 251-300 -33 units, 301-350- 35 units, plus 2 extra units at lunch. Max dose 105 units per day 45 mL 5 11/23/19 25 Active furosemide (Lasix) 20 mg tablet Take 0.5 tablets (10 mg total) by mouth 1 (one) time each day. 45 tablet 1 12/03/19 25 2025 Active Linzess 290 mcg capsule TAKE 1 CAPSULE (290 MCG) BY MOUTH ONCE A DAY BEFORE BREAKFAST. 90 capsule 3 12/24/19 25 Active resmetirom (Rezdiffra) 80 mg tablet Take 80 mg by mouth 1 (one) time each day. 90 tablet 3 01/05/20 25 Active pen needle, diabetic (BD Reshma 2nd Gen Pen Needle) 32 gauge x 5/32 needleIndication s:Type 2 diabetes mellitus with diabetic neuropathy, with long-term current use of insulin ([facility] V24, [facility] V28) INJECT UNDER THE SKIN 5 (FIVE) TIMES A DAY. USE 5 TIMES A DAY WITH INSULIN 300 each 1 01/20/20 25 Active galcanezumab-gnl m (Emgality Pen) 120 mg/mL injection pen Inject 1 mL (120 mg total) under the skin every 30 (thirty) days. 3 mL 1 01/20/20 25 Active atorvastatin (LIPITOR) 40 mg tablet Take 1 tablet (40 mg total) by mouth at bedtime. 90 tablet 1 02/09/20 25 Active levocetirizine (XYZAL) 5 mg tablet TAKE 1 TABLET BY MOUTH EVERY EVENING 90 tablet 1 02/24/20 25 Active levothyroxine (SYNTHROID, LEVOTHROID) 150 mcg tabletIndication s:Type 2 diabetes mellitus with hyperglycemia ([facility] V24, [facility] V28) Take 1 tablet Friday through Friday, half a tablet on Sundays. 90 tablet 1 03/01/20 25 Active Symbicort 160-4.5 mcg/actuation inhaler INHALE 2 PUFFS INTO THE LUNGS TWICE A DAY 30.6 each 03/21/20 25 Active semaglutide (Ozempic) 2 mg/dose (8 mg/3 mL) injection pen Inject 2 mg under the skin every 7 (seven) days. 3 mL 04/05/20 25 Active topiramate (TOPAMAX) 25 mg tablet Take 1 tablet (25 mg total) by mouth 2 (two) times a day. 180 each 04/06/20 25 Active insulin glargine (Lantus Solostar U-100 Insulin) 100 unit/mL (3 mL) injection penIndications:T ype 2 diabetes mellitus with other specified complication, with long-term current use of insulin ([facility] V24, [facility] V28) INJECT 100 UNITS in the morning 45 mL 11 04/11/20 25 Active zolpidem (AMBIEN) 5 mg tablet TAKE 1 TABLET BY MOUTH AT BEDTIME NEEDED FOR SLEEP. MAX DAILY AMOUNT: 5 MG 28 tablet 05/04/20 25 Active gabapentin (NEURONTIN) 300 mg capsule Take 3 capsules (900 mg total) by mouth 3 (three) times a day. 270 capsule 5 05/11/20 25 Active albuterol 2.5 mg /3 mL (0.083 %) nebulizer solution USE 1 VIAL IN NEBULIZER EVERY 4 HOURS - And As Needed 375 mL 11 05/26/20 25 Active methylPREDNISolo ne (MEDROL) 2 mg tablet 04/06/20 25 Active lidocaine (LIDODERM) 5 % patch APPLY 1-3 PATCHES TOPICALLY EVERY DAY, 12 HOURS ON, 12 HOURS OFF 04/22/20 25 Active Semglee,insulin glarg-yfgn,Pen 100 unit/mL (3 mL) injection INJECT 148 UNITS INTO THE SKIN AT BEDTIME. 06/04/20 24 Active diazePAM (VALIUM) 2 mg tablet Active cycloSPORINE (RESTASIS) 0.05 % ophthalmic emulsion Administer 1 drop into both eyes 2 (two) times a day. 05/06/20 Active busPIRone (BUSPAR) 15 mg tablet Take 1 tablet (15 mg total) by mouth. 06/11/20 24 Active amitriptyline (ELAVIL) 100 mg tablet 05/09/20 25 Active busPIRone (BUSPAR) 10 mg tablet TAKE 1 TABLET BY MOUTH 3 TIMES A DAY. AFTER 2 WEEKS DECREASE TO 1/2 TABLET 3 TIMES A DAY 07/08/20 Active pantoprazole (PROTONIX) 40 mg EC tablet TAKE 1 TABLET BY MOUTH EVERY DAY 90 tablet 1 06/06/20 Active montelukast (SINGULAIR) 10 mg tablet Take 1 tablet (10 mg total) by mouth at bedtime. 90 tablet 1 06/06/20 Active zolpidem (AMBIEN) 5 mg tablet Take 1 tablet (5 mg total) by mouth at bedtime as needed for sleep. Max Daily Amount: 5 mg 28 tablet 06/06/20 Active traMADoL (ULTRAM) 50 mg tablet Take 2 tablets by mouth 3 times per day. Max 6 tablets/day 168 tablet 06/06/20 Active lactulose (CHRONULAC) solution Take 30 mL (20 g total) by mouth 2 (two) times a day. 1800 mL 3 06/14/20 Active blood-glucose sensor (FreeStyle Daljit 3 Plus Sensor)Indicatio ns:Type 2 diabetes mellitus with diabetic neuropathy, unspecified whether snf insulin use ([facility] V24, [facility] V28) Apply 1 sensor and change every 15 days. Box = Kit = EA 2 each 06/21/20 25 Active lisinopriL (PRINIVIL,ZESTRI L) 10 mg tablet Take 1 tablet (10 mg total) by mouth 1 (one) time each day. 90 tablet 06/23/20 25 Active baclofen (LIORESAL) 20 mg tablet Take 1 tablet (20 mg total) by mouth 2 (two) times a day. 180 tablet 1 06/23/20 25 Active dilTIAZem CD (CARDIZEM CD) 120 mg 24 hr capsule Take 1 capsule (120 mg total) by mouth 1 (one) time each day. 90 capsule 1 06/23/20 25 Active budesonide-formo teroL (SYMBICORT) 160-4.5 mcg/actuation inhaler Inhale 2 puffs by mouth 2 (two) times a day. 1 each 06/24/20 Active budesonide-formo teroL (SYMBICORT) 160-4.5 mcg/actuation inhaler Inhale 2 puffs by mouth 2 (two) times a day. 03/01/20 24 2024 Discontinued(R eorder) baclofen (LIORESAL) 20 mg tablet Take 1 tablet (20 mg total) by mouth 2 (two) times a day. 180 tablet 1 10/04/19 25 2024 Discontinued(R eorder) pantoprazole (PROTONIX) 40 mg EC tablet Take 1 tablet (40 mg total) by mouth 2 (two) times a day. 180 tablet 3 10/14/19 25 2024 Discontinued montelukast (SINGULAIR) 10 mg tablet TAKE 1 TABLET BY MOUTH EVERYDAY AT BEDTIME 90 tablet 1 12/23/19 25 2024 Discontinued(R eorder) dilTIAZem CD (CARDIZEM CD) 120 mg 24 hr capsule Take 1 capsule (120 mg total) by mouth 1 (one) time each day. 90 capsule 1 02/09/20 25 2024 Discontinued(R eorder) lisinopriL (PRINIVIL,ZESTRI L) 10 mg tablet Take 1 tablet (10 mg total) by mouth 1 (one) time each day. 90 tablet 04/04/20 25 2024 Discontinued(R eorder) zolpidem (AMBIEN) 5 mg tablet Take 1 tablet (5 mg total) by mouth at bedtime as needed for sleep. Max Daily Amount: 5 mg 28 tablet 05/04/20 25 2024 Discontinued(R eorder) traMADoL (ULTRAM) 50 mg tablet Take 2 tablets by mouth 3 times per day. Max 6 tablets/day 168 tablet 05/03/20 25 2024 Discontinued(R eorder) Active Problems Problem Noted Date Diagnosed Date Esophageal dysphagia 06/02/2025 Left hemiparesis ([facility] V24, [facility] V28) 05/18 Morbid obesity ([facility]/HCC V24, [facility]/HCC V28) 2024 Bipolar disorder, mixed ([facility] V24, [facility] V2 8) 10/06/2023 Fibromyalgia 10/06/2023 Family history of breast cancer 10/06/2023 Overview (10/06/2023): Empower neg, T-C 8.9% History of CVA (cerebrovascular accident) 2023 Multiple environmental allergies 10/06/2023 Sacrococcygeal disorders, not elsewhere classifi ed 02/19/2023 Visual discomfort, unspecified 02/19/2023 ASCUS of cervix with negative high risk HPV 11/2022 Overview (10/06/2023): Repeat cotesting in 3 years Diabetes mellitus ([facility] V24, [facility] V28) Assessment & Plan (12/02/2024 8:41 AM EDT): Type 2 diabetes mellitus wit h diabetic neuropathy, unspecified ([facility] V24, [facility] V28) 11/04/2022 Chronic back pain 05/06/2022 Neuropathy 05/06/2022 COVID-19 09/18/2021 Overview (10/06/2023): DX: 08/2021. Hospitalized [facility]. CT Angiogram. Negative PE. +Goundglass opacities consistent with Covid. Personal history of COVID-19 09/18/2021 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 Complicated migraine 11/18/2016 Herpes labialis 04/09/2016 Hemiparesis affecting left s izabella as late effect of cerebrovascular accident ([facility] V24, [facility] V28) 01/26/2016 Incisional hernia 12/13/2014 Obstructive sleep [...] 8:41 AM EDT): Depression 01/14/2006 Asthma 01/14/2006 Bipolar disorder, current ep isode mixed, unspecified ([facility] V24, [facility] V28) 01/14/2006 Encounters Date Type Department Care Team Description 06/26/2025 Results Follow-Up Gastroenterology - 299 [facility] 299 [facility] [address] [place] [phone] Lidia Jeffries PA 06/23/2025 Telephone Adult Medicine [facility] [address] [place] [phone] Keren Steele MA 06/21/2025 Telephone Pulmonology - [place] 175 [facility] [address] [place] [phone] Delonte Quezada MA 06/16/2025 8:55 AM EDT Lab Draw Station - 175 [facility] 175 [facility] [address] [place] [phone] MERRITT (nonalcoholic steatohepatitis); Oral phase dysphagia; Constipation, unspecified constipation type; Pelvic floor dysfunction; Type 2 diabetes mellitus with diabetic neuropathy, unspecified whether joint terminal attack controller insulin use ([facility] V24, [facility] V28) 06/16/2025 8:15 AM EDT Office Visit Pulmonology [facility] 175 [facility] [address] [place] [phone] Diego Barton MD Obstructive sleep apnea, adult (Primary Dx); Mild persistent asthma, unspecified whether complicated; Mild asthma, unspecified whether complicated, unspecified whether persistent 06/16/2025 Results Follow-Up Endocrinology [address] [phone] Dorothy Lyman PA 06/14/2025 8:30 AM EDT Office Visit Gastroenterology [address] [phone] Lidia Jeffries PA MERRITT (nonalcoholic steatohepatitis) (Primary Dx); Oral phase dysphagia; Constipation, unspecified constipation type; Pelvic floor dysfunction 05/25/2025 Telephone Adult Medicine [address] [phone] Keren Steele MA 04/06/2025 7:30 AM EDT Office Visit Adult [address] [phone] Thierry Ramirez PA Primary hypertension (Primary Dx); Type 2 diabetes mellitus with other specified complication, unspecified whether snf insulin use ([facility] V24, [facility] V28); Hypercholesterolemia; Hypothyroidism, unspecified type; Primary insomnia; Other chronic pain; Encounter for long-term (current) use of medications; Anxiety; Lymphedema 04/04/2025 Telephone Adult Medicine [address] [phone] Caity Barros MA from Last 3 Months Immunizations Immunization Administration Dates Next Due Influenza trivalent, 0.5mL, preservative free (Fluarix; FluLaval; Fluzone) ages 6mo and older (Afluria) 3 years and older 05/19/2023,07/05/2022,05/09/2020 Tdap Tetanus diptheria acell ular pertussis (Boostrix; Adacel) 7yo and older 03/18/2013 Surgical History Surgery Date Site/Laterality Comments TONSILLECTOMY PROCEDURE: HISTORICAL TONSILLECTOMY ENDOMETRIAL ABLATION 2005 PROCEDURE: WI ENDOMETRIAL ABLTJ THERMAL W/O HYSTEROSCOPIC GUID; COMMENT: [facility], blood transfusions TUBAL LIGATION PROCEDURE: HISTORICAL TUBAL LIGATION OTHER SURGICAL HISTORY PROCEDURE: ---- OTHER ----; COMMENT: incisional hernia repair APPENDECTOMY PROCEDURE: HISTORICAL APPENDECTOMY KNEE SURGERY Right PROCEDURE: HISTORICAL KNEE SURGERY; COMMENT: knee X 4- right COLONOSCOPY 07/06/2018 PROCEDURE: HISTORICAL COLONOSCOPY; COMMENT: Lewis@[facility]; melanosis coli, internal hemorrhoids, no polyps. UMBILICAL HERNIA REPAIR EYE SURGERY Medical History Medical History Date Comments Anemia 11/06/2013 DX:Anemia Anxiety 11/06/2013 DX:Anxiety Aphthous ulcer 11/06/2013 DX:Aphthous ulce r Arthritis 11/06/2013 DX:Arthritis Asthma 01/14/2006 DX:Asthma Bipolar disorder, mixed ([facility] /HCC V24, [facility] V28) DX:Bipolar disorder, mixed ( HCC) Chronic sinusitis 11/06/2013 DX:Chronic sin usitis Complicated migraine 11/18/2016 DX:Complica angel migraine Depressive disorder 01/14/2006 DX:Depressiv e disorder Fibromyalgia DX:Fibromyalgia Hemiparesis affecting left s izabella as late effect of cerebrovascular accident ([facility] V24, [facility] V28) 01/26/2016 DX:Hemiparesis aff ecting left side [...] 2, uncontrolled DX:Diabetes mellitus type 2, uncontrolled GERD (gastroesophageal reflux disease) Obesity Allergic Stroke ([facility]CC V24, [facility] V28) 2014 Inflammatory bowel disease Hypercholesteremia Family History Medical History Relation Name Comments Breast cancer Aunt 1 onset late 40s , mother's side Colon cancer Aunt 2 Uterine cancer Aunt 2 also colon ca ncer (mother's side) Asthma Daughter 1 Lexus [place] Depression Daughter 1 Lexus [place] Asthma Daughter 2 Bharati kulkarni Inflammatory bowel disease Daughter 2 Bharati kulkarni Arthritis Father Salty DM II Coronary artery disease Father Salty Diabetes Father Salty Heart disease Father Salty Hypertension Father Salty Kidney disease Father Salty Stroke Maternal Grandmother Qi Arthritis Mother Yanna HTN, afib COPD Mother Yanna Dementia Mother Yanna Heart disease Mother Yanna Hypertension Mother Yanna Rheum arthritis Mother Yanna Cancer Mother's Sister 1 Sangita Ovarian cancer Mother's Sister 1 Sangita Uterine cancer Mother's Sister 1 Sangita Breast cancer Mother's Sister 2 Yuli Depression Sister Michelle Hypertension Sister Michelle Cancer of Small Bowel Neg Hx Kidney cancer Neg Hx Pancreatic cancer Neg Hx Relation Name Status Comments Aunt 1 Aunt 2 Daughter 1 Lexus Od[place] Alive Daughter 2 Bharati kulkarni Alive Father Slaty Alive Maternal Grandmother Qi Mother Yanna Alive Mother's Sister 1 Sangita Alive Mother's Sister 2 Yuli Alive Sister Michelle Alive Social History Tobacco Use Types Packs/Day [...] care for your loved ones. For example, children's book author or elderly care for an older adult? [...] Sign Reading Time Taken Comments Blood Pressure 101/65 06/16/2025 8:29 AM EDT Pulse 87 06/16/2025 8:29 AM EDT Temperature 35.9 C (96.6 F) 06/16/2025 8:29 AM EDT Respiratory Rate 18 06/16/2025 8:29 AM EDT Oxygen Saturation 97% 06/16/2025 8:29 AM EDT Inhaled Oxygen Concentration - - Weight 71.7 kg (158 lb) 06/14/2025 8:35 AM EDT Height 154.9 cm (5' 1 ) 06/14/2025 8:35 AM EDT Body Mass Index 29.85 06/14/2025 8:35 AM EDT Plan of Treatment Upcoming Encounters Date Type Department Care Team (Late st Contact Info) Description 07/05/2025 7:30 AM EST Office Visit [address] [phone] Dorothy Lyman PA [address] [place] [phone] 09/30/2025 9:30 AM EST Office Visit Adult Medicine [address] [phone] Ramo Cason MD [address] [place] [address] 12/16/2025 9:30 AM EDT Office Visit Adult [address] [phone] Ramo Cason MD [address] [place] [address] 01/31/2026 8:30 AM EDT Office Visit Gastroenterology - [address] [phone] Lidia Jeffries PA [address] [address] 03/24/2026 9:30 AM EDT Office Visit Adult [address] [phone] Ramo Csaon MD [address] [place] [address] 06/16/2026 8:15 AM EDT Office Visit Pulmonology - [address] [place] [phone] Diego Barton MD [address] [place] [phone] Health Maintenance Due Date Last Done Comments [...] Diabetes: Annual Retina Eye Exam 05/30/2024 05/30/2023 RSV Immunization Adult Patients (1 - Risk 50-74 years 1-dose series) 2025 Zoster Vaccines (1 of 2) 2025 COVID-19 Vaccine (3 - season) 2025 12/28/2020, 12/04/2020 Influenza Vaccine (#1) 2025 , 05/29/2023, 05/19/2023, Additional history exists Diabetes: Annual Urine Albumin-Creatinine Ratio (uACR) 11/11/2025 11/11/2024 Medicare Annual Wellness Visit 12/02/2025 12/02/2024 Diabetes: Blood Sugar Control Test (HGBA1C) 12/15/2025 06/16/2025, 01/27/2025, 11/11/2024, Additional history exists Social Influencers of Health Screening 04/03/2026 04/03/2025 Diabetes: Annual GFR (Glomerular Filtration Rate) 06/16/2026 06/16/2025, 11/11/2024, 05/25/2024, Additional history exists Hypertension/CHF/CAD Annual BMP Blood Test 06/16/2026 06/16/2025, 11/11/2024, 05/25/2024, Additional history exists Colorectal Cancer Screening: Colonoscopy 07/06/2028 07/06/2018 Cholesterol [...] Procedure Name Priority Date/Time Associated Diagnosis Comments CBC WITH AUTO DIFFERENTIAL Routine 06/16/2025 8:53 AM EDT MERRITT (nonalcoholic steatohepatitis) Oral phase dysphagia Constipation, unspecified constipation type Pelvic floor dysfunction HEMOGLOBIN A1C Routine 06/16/2025 8:53 AM EDT Type 2 diabetes mellitus with diabetic neuropathy, unspecified whether snf insulin use ([facility] V24, [facility] V28) THYROID STIMULATING HORMONE WITH REFLEX TO FREE T4 AND FREE T3 Routine 06/16/2025 8:53 AM EDT Type 2 diabetes mellitus with diabetic neuropathy, unspecified whether snf insulin use ([facility] V24, [facility] V28) GAMMA GLUTAMYL TRANSFERASE Routine 06/16/2025 8:53 AM EDT MERRITT (nonalcoholic steatohepatitis) Oral phase dysphagia Constipation, unspecified constipation type Pelvic floor dysfunction COMPREHENSIVE METABOLIC PANEL Routine 06/16/2025 8:53 AM EDT MERRITT (nonalcoholic steatohepatitis) Oral phase dysphagia Constipation, unspecified constipation type Pelvic floor dysfunction CBC AND DIFFERENTIAL Routine 06/16/2025 8:53 AM EDT MERRITT (nonalcoholic steatohepatitis) Oral phase dysphagia Constipation, unspecified constipation type Pelvic floor dysfunction DRUG ABUSE SCREEN 8A PANEL, URINE Routine 04/07/2025 8:58 AM EDT Other chronic pain Encounter for long-term (current) use of medications MICROALBUMIN CREATININE URINE RATIO Routine 11/11/2024 8:55 AM EDT Type 2 diabetes mellitus with other specified complication, unspecified whether snf insulin use ([facility] V24, [facility] V28) LIPID PANEL WITH REFLEX TO DIRECT LDL Routine 11/11/2024 8:55 AM EDT Hypercholesterolemia SCREENING MAMMOGRAPHY BI 2-VIEW BREAST INC CAD Routine 02/07/2021 11:21 AM EDT Encounter for screening mammogram for malignant neoplasm of breast from Last 3 Months or Most Recently Relevant to Health Maintenance Results * Thyroid stimulating hormone with reflex to free t4 and free t3 (06/16/2025 8:53 AM EDT) TSH 1.24 0.40 - 4.00 mcIU/mL LAB CHEMISTRY METHOD 06/16/2025 11:00 AM EDT [facility] Blood Venous blood specimen / Unknown Venipuncture / Unknown 06/16/2025 8:53 AM EDT 06/16/2025 8:53 AM EDT us Dorothy GUNDERSON LAB BLOOD ORDERABLES Final Result [facility] [address] [place] [address], [place] [phone] * (ABNORMAL) CBC auto differential (06/16/2025 8:53 AM EDT) [facility] Signature WBC 3.3(L) 4.8 - 10.8 K/mcL LAB HEMETOLOGY METHOD 06/16/2025 10:15 AM [facility] RBC 4.10 3.80 - 4.80 M/mcL LAB HEMETOLOGY METHOD 06/16/2025 10:15 AM [facility] Hemoglobin 11.1(L) 11.5 - 16.0 g/dL LAB HEMETOLOGY METHOD 06/16/2025 10:15 AM [facility] Hematocrit 36.3 35.0 - 47.0 % LAB HEMETOLOGY METHOD 06/16/2025 10:15 AM [facility] MCV 89.2 79.0 - 98.0 FL LAB HEMETOLOGY METHOD 06/16/2025 10:15 AM [facility] MCH 27.3 27.0 - 32.0 pcg LAB HEMETOLOGY METHOD 06/16/2025 10:15 AM [facility] MCHC 30.6(L) 32.0 - 37.0 g/dL LAB HEMETOLOGY METHOD 06/16/2025 10:15 AM [facility] RDW 15.9(H) 11.0 - 15.0 % LAB HEMETOLOGY METHOD 06/16/2025 10:15 AM [facility] Platelets 122(L) 130 - 400 K/mcL LAB HEMETOLOGY METHOD 06/16/2025 10:15 AM [facility] MPV 10.7 7.0 - 11.0 FL LAB HEMETOLOGY METHOD 06/16/2025 10:15 AM [facility] NRBC 0.0 <1.0 % LAB HEMETOLOGY METHOD 06/16/2025 10:15 AM [facility] NRBC Absolute 0.00 <0.10 K/mcL LAB HEMETOLOGY METHOD 06/16/2025 10:15 AM EDT [facility] Neutrophils Relative 57.0 % LAB HEMETOLOGY METHOD 06/16/2025 10:15 AM EDT [facility] Lymphocytes Relative 31.0 % LAB HEMETOLOGY METHOD 06/16/2025 10:15 AM EDT [facility] Monocytes Relative 9.0 % LAB HEMETOLOGY METHOD 06/16/2025 10:15 AM EDT [facility] Eosinophils Relative 1.5 % LAB HEMETOLOGY METHOD 06/16/2025 10:15 AM EDT [facility] Basophils Relative 0.9 % LAB HEMETOLOGY METHOD 06/16/2025 10:15 AM [facility] Immature Granulocytes Relative 0.6 % LAB HEMETOLOGY METHOD 06/16/2025 10:15 AM [facility] Neutrophils Absolute 1.89 1.50 - 7.00 K/mcL LAB HEMETOLOGY METHOD 06/16/2025 10:15 AM T [facility] Lymphocytes Absolute 1.03 1.00 - 5.00 K/mcL LAB HEMETOLOGY METHOD 06/16/2025 10:15 AM [facility] Monocytes Absolute 0.30 0.20 - 1.00 K/mcL LAB HEMETOLOGY METHOD 06/16/2025 10:15 AM EDT [facility] Eosinophils Absolute 0.05 0.00 - 0.50 K/mcL LAB HEMETOLOGY METHOD 06/16/2025 10:15 AM EDT [facility] Basophils Absolute 0.03 0.00 - 0.20 K/mcL LAB HEMETOLOGY METHOD 06/16/2025 10:15 AM [facility] Immature Granulocytes Absolute 0.02 0.00 - 0.03 K/mcL LAB HEMETOLOGY METHOD 06/16/2025 10:15 AM EDT [facility] Blood Venous blood specimen / Unknown Venipuncture / Unknown 06/16/2025 8:53 AM EDT 06/16/2025 8:53 AM EDT Lidia GUNDERSON LAB BLOOD ORDERABLES Final Re sult Performing Organization Address [facility]/ZIP Co de Phone Number [facility] [address] [place] [address], [place] [phone] * (ABNORMAL) Hemoglobin A1c (06/16/2025 8:53 AM EDT) Hemoglobin A1C 7.2(H) <6.5 % LAB CHEMISTRY METHOD 06/16/2025 11:37 AM EDT [facility] Mean Bld Glu Estim. 160 mg/dL LAB CHEMISTRY METHOD 06/16/2025 11:37 AM EDT [facility] Blood Venous blood specimen / Unknown Venipuncture / Unknown 06/16/2025 8:53 AM EDT 06/16/2025 8:53 AM EDT Dorothy GUNDERSON LAB BLOOD ORDERABLES Final Result Performing Organization Address [facility] de Phone Number [facility] [address] [place] [address], [place] [phone] * (ABNORMAL) GGT (06/16/2025 8:53 AM EDT) GGT 144(H) 7 - 64 unit/L LAB CHEMISTRY METHOD 06/16/2025 10:32 AM EDT [facility] Blood Venous blood specimen / Unknown Venipuncture / Unknown 06/16/2025 8:53 AM EDT 06/16/2025 8:53 AM EDT Lidia GUNDERSON LAB BLOOD ORDERABLES Final Re sult [facility] [address] [place] [address], * (ABNORMAL) Comprehensive metabolic panel (06/16/2025 8:53 AM EDT) Sodium 136 133 - 145 mmol/L LAB CHEMISTRY METHOD 06/16/2025 10:32 AM T [facility] Potassium 4.1 3.5 - 5.5 mmol/L LAB CHEMISTRY METHOD 06/16/2025 10:32 AM [facility] Chloride 106 96 - 110 mmol/L LAB CHEMISTRY METHOD 06/16/2025 10:32 AM [facility] CO2 24 21 - 32 mmol/L LAB CHEMISTRY METHOD 06/16/2025 10:32 AM [facility] Anion Gap 6 3 - 11 LAB CHEMISTRY METHOD 06/16/2025 10:32 AM [facility] Glucose 239(H) 70 - 100 mg/dL LAB CHEMISTRY METHOD 06/16/2025 10:32 AM [facility] BUN 11 5 - 25 mg/dL LAB CHEMISTRY METHOD 06/16/2025 10:32 AM [facility] Creatinine 0.76 0.50 - 1.10 mg/dL LAB CHEMISTRY METHOD 06/16/2025 10:32 AM [facility] eGFR 96 >=60 mL/min/1. 73m2 LAB CHEMISTRY METHOD 06/16/2025 10:32 AM [facility] Comment:Calculation based on the Chronic Kidney Disease Epidemiology Collaboration (CKD-EPI) equation refit without adjustment for race. BUN/Creatinine Ratio 14.5 LAB CHEMISTRY METHOD 06/16/2025 10:32 AM [facility] Calcium 9.2 8.5 - 10.5 mg/dL LAB CHEMISTRY METHOD 06/16/2025 10:32 AM [facility] AST (SGOT) 46(H) 10 - 42 unit/L LAB CHEMISTRY METHOD 06/16/2025 10:32 AM EDT [facility] ALT (SGPT) 65(H) 10 - 60 unit/L LAB CHEMISTRY METHOD 06/16/2025 10:32 AM EDT [facility] Alkaline Phosphatase 120 42 - 121 unit/L LAB CHEMISTRY METHOD 06/16/2025 10:32 AM EDT [facility] Total Protein 6.8 6.0 - 8.0 g/dL LAB CHEMISTRY METHOD 06/16/2025 10:32 AM EDT [facility] Albumin 3.4 3.2 - 5.0 g/dL LAB CHEMISTRY METHOD 06/16/2025 10:32 AM [facility] Total Bilirubin 0.5 0.0 - 1.4 mg/dL LAB CHEMISTRY METHOD 06/16/2025 10:32 AM T [facility] Blood Venous blood specimen / Unknown Venipuncture / Unknown 06/16/2025 8:53 AM EDT 06/16/2025 8:53 AM EDT Lidia GUNDERSON LAB BLOOD ORDERABLES Final Re sult [facility] [address] [place] [address], * (ABNORMAL) Drug abuse screen 8a panel, urine (04/07/2025 8:58 AM EDT) Amphetamine Screen, Ur Negative Negative LAB CHEMISTRY METHOD 12:51 PM EDT [facility] Comment:Certain OTC medicati ons containing ephedrine, phenylephrine, pseudoephedrine and phenylpropanolamine can cause false positive results. Barbiturate Screen, Ur Positive(A ) Negative LAB CHEMISTRY METHOD 12:51 PM EDT [facility] Benzodiazepine Screen, Ur Positive(A ) Negative LAB CHEMISTRY METHOD 12:51 PM EDT [facility] Cocaine Screen, Ur Negative Negative LAB CHEMISTRY METHOD 12:51 PM EDT [facility] Opiate Screen, Ur Negative Negative LAB CHEMISTRY METHOD 12:51 PM EDT [facility] Cannabinoid (THC) Screen, Ur Negative Negative LAB CHEMISTRY METHOD 12:51 PM EDT [facility] Comment:Specimens from patie nts taking pantoprazole sodium (Protonix) have been shown to produce false positive results. Oxycodone Screen, Ur Negative Negative LAB CHEMISTRY METHOD 12:51 PM EDT [facility] Fentanyl, Ur Negative Negative LAB CHEMISTRY METHOD 12:51 PM T [facility] Urine Urine specimen obtained by clean catch procedure / Unknown Non-blood Collection / Unknown 04/07/2025 8:58 AM EDT 04/07/2025 8:59 AM EDT Narrative [facility] - 04/07/2025 12:51 PM EDT Assay cutoffs: Amphetamines 1000 ng/mL Barbiturates 200 ng/mL Benzodiazepines 200 ng/mL Cocaine 300 ng/mL Fentanyl 1 ng/mL Opiates 300 ng/mL Oxycodone 100 ng/mL THC 50 ng/mL Semi-quantitative assay for screening purposes only. Unconfirmed screening result should not be used for non-medical purposes. *ALTERNATE METHOD CONFIRMATION DONE UPON REQUEST ONLY* us Thierry GUNDERSON LAB URINE ORDERABLES Fi nal Result [facility] [address] [place] [address], * (ABNORMAL) Lipid panel with reflex to direct LDL (11/11/2024 8:55 AM EDT) Cholesterol 109 0 - 200 mg/dL LAB CHEMISTRY METHOD 11/11/2024 1:43 PM EDT [facility] Triglycerides 120 0 - 150 mg/dL LAB CHEMISTRY METHOD 11/11/2024 1:43 PM EDT [facility] HDL 36(L) >=40 mg/dL LAB CHEMISTRY METHOD 11/11/2024 1:43 PM EDT [facility] LDL Calculated 49 0 - 100 mg/dL LAB CHEMISTRY METHOD 11/11/2024 1:43 PM EDT [facility] VLDL Cholesterol Chris 24 mg/dL LAB CHEMISTRY METHOD 11/11/2024 1:43 PM EDT [facility] Non HDL Chol. (LDL+VLDL) 73 <145 mg/dL LAB CHEMISTRY METHOD 11/11/2024 1:43 PM EDT [facility] Chol/HDL Ratio 3.0 0.0 - 4.4 LAB CHEMISTRY METHOD 11/11/2024 1:43 PM EDT [facility] Blood Venous blood specimen / Unknown Venipuncture / Unknown 11/11/2024 8:55 AM EDT 11/11/2024 8:55 AM EDT us Ramo Cason MD LAB BLOOD ORDERABLES Final Resu lt [facility] [address] [place] [address], * Microalbumin creatinine urine ratio (11/11/2024 8:55 AM EDT) Creatinine, Urine 32.0 mg/dL LAB CHEMISTRY METHOD 11/11/2024 1:10 PM EDT [facility] Microalb, Ur <5.0 0.0 - 29.0 mg/L LAB CHEMISTRY METHOD 11/11/2024 1:10 PM EDT [facility] Microalb/Creat Ratio <16 <30 mg/g creat LAB CHEMISTRY METHOD 11/11/2024 1:10 PM EDT [facility] Urine Urine specimen obtained by clean catch procedure / Unknown Non-blood Collection / Unknown 11/11/2024 8:55 AM EDT 11/11/2024 8:55 AM EDT us Ramo Cason MD LAB URINE ORDERABLES Final Resu lt [facility] [address] [place] [address], * SCREENING MAMMOGRAPHY BI 2-VIEW BREAST INC [...] % Breast cancer risk category Low (<15%) us Ramo Cason MD IMG XR PROCEDURES Final Result from Last 3 Months or Most Recently Relevant to Health Maintenance Insurance MEDICARE [place]ICAID [place] Advance Directives Documents on File Type Date Recorded Patient Telephone Appointment Clerk Expl anation Health Care Decision (hx) 11/07/2019 [...] DIRECTIVE Health Care Decision (hx) 11/02/2014 AD PTAEL DIRECTIVE * Full Code - Confirmed (Latest Code Status on File) Date Activated Date Inactivated Comments 12/02/2024 8:39 AM This code stat us was ascertained in the following way: Code status discussion: discussion with patient To update the patient's code status, place a code status order. Do not modify or discontinue any currently active code status orders. Care Teams Associate Sales Manager Relationship Specialty Start Date End Date Ramo Cason MD [address] [place] [phone] PCP - General Internal Medicine 07/08/14
--- OUTSIDE RECORDS SUMMARY | 2025-06-28 08:04 | XMS_ITS | Encounter Summary ---
Author Organization [facility] Address [address] [place] [address] Care Team Providers Care Mica Miner Name Role Phone Ramo Cason MD Primary Care Provider [phone] Reason for Visit * Reason Onset Date Comments PT-1 06/23/2025 Encounter Details Date Type Department Care Team (Late st Contact Info) Description 06/23/2025 Telephone Adult Medicine [address] [phone] Keren Steele MA Social History Tobacco Use Types Packs/Day Years [...] care for your loved ones. For example, childcare center director or elderly care for an older adult? [...] AM EST documented as of this encounter Progress Notes * Keren Steele MA - 06/23/2025 7:26 AM EST Pt-1 submitted Tracking # [id number] [employer] Chidi 2 visits per month/ x 1 yr. Barney for her scooter. documented in this encounter Plan of Treatment Upcoming Encounters Date Type Department Care Team (Late st Contact Info) Description 07/05/2025 7:30 AM EST Office Visit [address] [phone] Dorothy Lyman PA [address] [place] [address] 09/30/2025 9:30 AM EST Office Visit Adult [address] [phone] Ramo Cason MD [address] [place] [address] 12/16/2025 9:30 AM EDT Office Visit Adult [address] [phone] Ramo Cason MD [address] [place] [address] 01/31/2026 8:30 AM EDT Office Visit Gastroenterology - [address] [place] [address] [phone] Lidia Jeffries PA [address] [address] 03/24/2026 9:30 AM EDT Office Visit [address] [phone] Ramo Cason MD [address] [place] [address] 06/16/2026 8:15 AM EDT Office Visit Pulmonology - [place] [address] [facility] [address] [place] [phone] Diego Barton MD [address] [place] [phone] documented as of this encounter Visit Diagnoses Not on filedocumented in this encounter Additional Health Concerns Assessment Noted Time PHQ-9 Depression Total Score: 6 04/03/20 25 8:03 AM EDT documented as of this encounter Care Teams Mica Miner Relationship Specialty Start Date End Date Ramo Cason MD [address] [place] [phone] PCP - General Internal Medicine 07/08/14 documented as of this encounter
--- OUTSIDE RECORDS SUMMARY | 2025-06-28 08:04 | XMS_ITS | Encounter Summary ---
Author Organization [facility] Address [address] [place] [address] Care Team Providers Care Radiation Protection Specialist Name Role Phone Ramo Cason MD Primary Care Provider [phone] Encounter Details Date Type Department Care Team (Late st Contact Info) Description 06/16/2025 Results Follow-Up Endocrinology - [place] [address] [place] [phone] Dorothy Lyman PA [address] [place] [address] Social History Tobacco Use Types Packs/Day Years [...] for your loved ones. For example, children's literature professor or elderly care for an older adult? [...] Upcoming Encounters Date Type Department Care Team ([facility] Contact Info) Description 07/05/2025 7:30 AM EST Office Visit Endocrinology [address] [place] [phone] Dorothy Lyman PA [address] [place] [address] 09/30/2025 9:30 AM EST Office Visit Adult [address] [phone] Ramo Cason MD [address] [place] [address] 12/16/2025 9:30 AM EDT Office Visit Adult [address] [phone] Ramo Cason MD [address] [place] [address] 01/31/2026 8:30 AM EDT Office Visit Gastroenterology - [address] [place] [address] [phone] Lidia Jeffries PA [address] [address] 03/24/2026 9:30 AM EDT Office Visit [address] [phone] Ramo Cason MD [address] [place] [address] 06/16/2026 8:15 AM EDT Office Visit Pulmonology - [place] 175 [facility] 200 [place] [phone] Diego Barton MD [address] [place] [phone] documented as of this encounter Visit Diagnoses Not on filedocumented in this encounter Additional Health Concerns Assessment Noted Time PHQ-9 Depression Total Score: 6 04/03/20 25 8:03 AM EDT documented as of this encounter Care Teams Radiation Protection Specialist Relationship Specialty Start Date End Date Ramo Cason MD [address] [place] [phone] PCP - General Internal Medicine 07/08/14 documented as of this encounter
--- OUTSIDE RECORDS SUMMARY | 2025-06-28 08:04 | XMS_ITS | Encounter Summary ---
Author Organization [facility] Address [address] [place] [address] Care Team Providers Care Clinical Staff Pharmacist Name Role Phone Ramo Cason MD Primary Care Provider [phone] Encounter Details Date Type Department Care Team ([facility] st Contact Info) Description 06/26/2025 Results Follow-Up Gastroenterology - [address] [phone] Lidia Jeffries PA 299 [facility] [address] [place] [address] Social History Tobacco Use Types Packs/Day Years [...] for your loved ones. For example, child care counselor or elderly care for an older adult? [...] as of this encounter Progress Notes * NEPTALI Portillo - 06/26/2025 5:36 PM EST I will send msg. documented in this encounter Plan of Treatment Upcoming Encounters Date Type Department Care Team (Late st Contact Info) Description 07/05/2025 7:30 AM EST Office Visit [address] [phone] Dorothy Lyman [place] [address] 09/30/2025 9:30 AM EST Office Visit Adult [address] [phone] Ramo Cason MD [address] [place] [address] 12/16/2025 9:30 AM EDT Office Visit Adult [address] [phone] Ramo Cason MD [address] [place] [address] 01/31/2026 8:30 AM EDT Office Visit Gastroenterology - [address] [place] [address] [phone] Lidia Jeffries PA [address] [place] [address] 03/24/2026 9:30 AM EDT Office Visit [address] [phone] Ramo Cason MD [address] [place] [address] 06/16/2026 8:15 AM EDT Office Visit Pulmonology - [place] [facility] 200 [place] [phone] Diego Barton MD [address] [place] [phone] documented as of this encounter Visit Diagnoses Not on filedocumented in this encounter Additional Health Concerns Assessment Noted Time PHQ-9 Depression Total Score: 6 04/03/20 25 8:03 AM EDT documented as of this encounter Care Teams Clinical Staff Pharmacist Relationship Specialty Start Date End Date Ramo Cason MD [address] [place] [phone] PCP - General Internal Medicine 07/08/14 documented as of this encounter
--- NOTE | 2025-06-28 08:05 | A.OFFVIS_ITS ---
Vital Signs 06/28/25 08:15 Height 5 ft 1 in Weight 24 lb BMI 4.5 BP 118/70 Blood Pressure Location Lt brachial Position Sitting Respiration 16 Pulse 72 Pulse Source Pulse Oximeter Pulse Oximetry (%) 98 Oxygen Delivery Method Room Air Intake Visit Reasons: 2m Allergies lurasidone (Latuda) Allergy (Severe, Verified 04/07/24 08:58) may have caused CVA morphine Allergy (Severe, Verified 04/07/24 08:58) Anaphylaxis codeine (CODEINE) Allergy (Intermediate, Verified 04/07/24 08:58) RASH duloxetine (Cymbalta) Allergy (Intermediate, Verified 04/07/24 08:58) rash, n/v lamotrigine Allergy (Intermediate, Verified 04/07/24 08:58) Rash milnacipran (Savella) Allergy (Intermediate, Verified 04/07/24 08:58) rash,nausea, vomiting Penicillins (PENICILLINS) Allergy (Intermediate, Verified 04/07/24 08:58) NAUSEA & VOMITING, rash pregabalin Allergy (Intermediate, Verified 04/07/24 08:58) rash,n/v sulindac Allergy (Intermediate, Verified 04/07/24 08:58) Nausea, Vomiting amiloride Allergy (Unknown, Verified 04/07/24 08:58) Unknown hydrochlorothiazide Allergy (Unknown, Verified 04/07/24 08:58) Unknown acetaminophen (From Fioricet) Adverse Reaction (Severe, Verified 06/28/25 08:27) Migraine butalbital (From Fioricet) Adverse Reaction (Severe, Verified 06/28/25 08:27) Migraine caffeine (From Fioricet) Adverse Reaction (Severe, Verified 06/28/25 08:27) Migraine From PERCOCET Allergy (Severe, Uncoded 04/04/22 11:02) rash,n/v Medication List - Last Reconciled 06/28/25 by Blanca Brink, RAINA albuterol sulfate 90 mcg/actuation 1 puff inhalation Q4-6H PRN amitriptyline 100 mg PO BEDTIME atorvastatin 40 mg PO DAILY baclofen 20 mg PO BID budesonide-formoterol 160-4.5 mcg/actuation (Symbicort) 2 puffs PO BID cholecalciferol (vitamin D3) 25 mcg PO DAILY cyclosporine 0.05% (Restasis) 1 drp ophthalmic (eye) BID diazepam 2 mg PO BID diltiazem HCl CD 120 mg PO DAILY diltiazem HCl ER (Tiadylt ER) 120 mg PO DAILY famotidine 20 mg PO BID furosemide 10 mg PO DAILY gabapentin 900 mg PO TID galcanezumab-gnlm (Emgality Pen) 120 mg subcut Q4W glyburide 10 mg PO BID ibuprofen 400 mg PO BID PRN insulin aspart U-100 (Novolog FlexPen U-100 Insulin aspart) subcut levocetirizine 5 mg PO BID levothyroxine mcg PO linaclotide (Linzess) 290 mcg PO QAM lisinopril 10 mg PO DAILY metformin 500 mg PO BID montelukast 10 mg PO BEDTIME nystatin 1 appl topical TID PRN pantoprazole 40 mg PO QAM tiotropium bromide 1.25 mcg/actuation (Spiriva Respimat) 2 puffs PO DAILY topiramate 1 tab PO DAILY tramadol 100 mg PO TID PRN zolpidem 1 tab PO BEDTIME PRN HPI Comments Details: Agueda is a 50-year-old female patient with a past medical history of migraine, RVCS, low back pain, diabetes, hypothyroidism, ALEJANDRO, hypertension, asthma, CVA, insomnia, bipolar disorder, depression, and anxiety who is following in the clinic for headaches. She last saw Dr. Young on 05/02/2025 at which time she had reported persistent and severe migraines worsening in early March and persisting over 10 days presenting primarily on the right side with symptoms of nausea and numbness. Despite trying multiple medications and therapies, including prednisone, nerve blocks, the headaches persisted. She had significant weakness and fatigue. In March her topiramate was increased to 25 mg twice daily she also takes Emgality once monthly. At the time of the last visit she was advised to continue topiramate 25 mg twice daily and Emgality once monthly. Agueda tells me today that she has been a long history of migraine before and after her CVA. Migraines in general has been worse after her CVA and they are predominantly to the right side and start in the occipital area and radiate up to the right temporal. She has significant light and sound sensitivity as well as nausea. Headaches are daily and constant. They are felt as a throbbing and pressure pain. She denies any visual changes and recently had an ophthalmology visit approximately 6 months ago. She does go every 6 months. She has been getting occipital nerve block injections and trigger point injections periodically however has never received them on a regular basis. She also will generally have her trigger points and nerve blocks done separately. [facility] Medical History (Updated 06/28/25 @ 09:08 by Blanca Brink CNP) History of blood transfusion Migraine Panic attack as reaction to stress Sacroiliac joint dysfunction of left side Sacroiliac joint dysfunction of right side Sacroiliitis COVID-19 vaccine series completed Lymphedema of left leg Low back pain Diabetes Hypothyroid ALEJANDRO (obstructive sleep apnea) Hypertension Asthma CVA (cerebral vascular accident) Arthritis Fibromyalgia Insomnia Bipolar disorder Depression Anxiety Surgical History Status post insertion of nerve stimulator History of tonsillectomy and adenoidectomy H/O arthroscopy of right knee History of endometrial ablation Hx of appendectomy History of hernia surgery S/P tubal ligation Social History Are you a primary career development coordinator/teacher to a significant other at home: No Do you presently have visiting nurse or other home services: Yes (HYDROSTATIC TUBING TESTER 15 hours/week) Comment: LEFT SIDED WEAKNESS Patient Tobacco Use Status: Never used Tobacco Advance Directives Date on File: 03/12/22 Physical Exam Vital Signs: Last Vital Signs Pulse 72 06/28/25 08:15 Resp 16 06/28/25 08:15 BP 118/70 06/28/25 08:15 Pulse Ox 98 06/28/25 08:15 Oxygen Delivery Method Room Air 06/28/25 08:15 BMI result Body Mass Index 4.5 Const General: cooperative, healthy appearing, comfortable and no acute distress Nutritional Appearance: well nourished Orientation/consciousness: patient oriented x3 Limitations: no limitations HEENT Head: Yes normal to inspection and Yes normocephalic Mouth: abnormal TMJ Eyes General: appearance normal, both eyes and all related structures Visual Short: normal visual short by confrontation Alignment and Position: alignment normal Periorbital: periorbital findings normal Eyelids: Yes eyelids normal Conjunctivae: conjunctivae normal Sclerae: sclerae normal Back/Spine/Pelvis Other: right occipital notch tenderness. Right temporal tenderness, and bilateral trapezius trigger points R>L Neuro General: patient oriented x3 and deep tendon reflexes 2+ bilaterally Cranial nerves: Yes CN's II-XII intact bilaterally Cognition (Neuro): normal cognition Motor exam (neuro): no tremor noted Sensory Exam: double simultaneous stimulation for sensation normal Romberg Test: Negative Pupils: Normal pupillary reactivity/response: bilateral Psych Appearance: grossly normal Mental Status: mental status grossly normal Speech and movement: Normal speech and movement present and Clear speech present Affect: normal affect Attitude: cooperative Thought process: Normal thought process present Thought content: Normal thought content present Insight: Good insight present (Psych) Judgement: Good judgement present (Psych) Office Procedures Nerve Block Details: Bilateral Greater Occipital Nerve block procedure: Laterally: Right Indications: Occipital neuralgia Current allergies and current list of medications were reviewed prior to procedure, verbal consent was obtained, procedure was explained in detail to the patient prior to starting. Time-out was performed prior to procedure. Following universal hygiene protocols, patient's right occipital area was located by drawing a line between the external occipital protuberance and the mastoid process. The greater occipital nerve was located approximately 2/3 along this gasoline engine assembler to the occiput, and corresponded with the point of maximum tenderness. Alcohol was applied topically to the skin. A 27 gauge needle (aspirating during insertion) was inserted at a 45 degree angle until just above the periosteum. The providers selected agent (s)/medications (as documented in this note) were injected on the left side (directing needle to center, left and right of painful focus any fanning technique). Pressure with gauze pad was held briefly upon the site of puncture to minimize bleeding and to further spread anesthetic subcutaneously. The patient was monitored for 15 minutes after the procedure and no complications were observed. Post procedure care was reviewed with the patient including application of ice intermittently to the injection sites over the course of the day to reduce inflammation. CPT: 88518-[id number] Occipital Procedure code (CPT) selection complete Therapeutic Injection Therapeutic Injection Details: Trigger point injection procedure: Laterally:Bilateral Indications: Chronic headaches, myofascial pain Following universal hygiene protocol, after explaining the risks and benefits as well as hazards of the procedure to the patient, consent was signed and placed in the chart. Time-out prior to starting the procedure was performed. The areas over the bilateral trapezius muscles and right temporalis muscle were cleansed with alcohol. Two Sites in each trapezius muscle injected with a 27 gauge 1.5 in needle with myofascial spasm. Four sites in the right temporalis muscle injected with a 30 gauge 0.5 in needle Patient tolerated the procedure well, localized bleeding was controlled. Patient monitored in the clinic for 15 minutes for complications. Patient was discharged home with instructions to apply ice to the back of their head as needed. [id number] Point Injection 3 or more All charges added?: Procedure code (CPT) selection complete Office Meds lidocaine (PF) 10 mg/mL (1 %) injection solution Performing Provider: Blanca Brink CNP Performing Location: [facility] Documented (not given) by: Blanca Brink CNP on 06/28/25 09:18 Reason Not Given: No Longer Necessary bupivacaine (PF) 0.5 % (5 mg/mL) injection solution Performing Provider: Blanca Brink CNP Performing Location: [facility] Administered by: Blanca Brink CNP on 06/28/25 09:18 Dose Route Admin Location Dispensed Lot Number Expiration Date [facility] P[employer] 3 mL Infiltration 10 mL [id number] [employer]ACE Total Dispensed Waste 10 mL 70 % bupivacaine (PF) 0.5 % (5 mg/mL) injection solution Performing Provider: Blanca Brink CNP Performing Location: [facility] Administered by: Blanca Brink CNP on 06/28/25 09:18 Dose Route Admin Location Dispensed Lot Number Expiration Date [facility] P[employer] 4 mL Infiltration 10 mL [id number] [employer]ELLIA PHARMACE Total Dispensed Waste 10 mL 60 % Assessment & Plan Assessment & Plan (1) Chronic migraine without aura without status migrainosus, not intractable: Code(s): G43.709 - Chronic migraine without aura, not intractable, without status migrainosus Category: Medical (2) Occipital neuralgia of right side: Code(s): M54.81 - Occipital neuralgia Category: Medical (3) Trigger point of shoulder region: Code(s): M25.519 - Pain in unspecified shoulder Category: Medical Plan Agueda is a 50-year-old female patient with a past medical history of migraine, RVCS, low back pain, diabetes, hypothyroidism, ALEJANDRO, hypertension, asthma, CVA, insomnia, bipolar disorder, depression, and anxiety who is following in the clinic for headaches. Treatment of her headaches has been complicated due to use of other medications as well as other existing comorbidities and medical history. She has seen some benefit with Emgality as well as occipital nerve block and trigger point injections which she has been receiving periodically. Her exam today revealed a right-sided occipital notch tenderness, right-sided temporal tenderness, and bilateral trapezius tenderness. We performed a right-sided occipital nerve block, bilateral trigger point injections, and a right-sided temporal trigger points. A total of 7 cc of bupivacaine 0.5% was utilized spread out through these areas. I will send my note to Mayur Floyd who has also been working with this patient and performing similar procedures. The patient did well without any complications. Ice pack was given for site discomfort. -patient is agreeable to another trial of Botox therapy indicated for chronic migraine -follow up in 1 month at which time we can perform additional nerve blocks and trigger point injections or start Botox therapy if prior authorization is ready at that time Orders: Orders AMB Trigger Point Injection Today G43.709 - Chronic migraine without aura, not intractable, without status migrainosus, M25.519 - Pain in unspecified shoulder, M54.81 - Occipital neuralgia AMB Nerve Block Today G43.709 - Chronic migraine without aura, not intractable, without status migrainosus, M25.519 - Pain in unspecified shoulder, M54.81 - Occipital neuralgia Coding Level of Care Code Est Pt Level 4 (30156) Diagnoses Chronic migraine without aura without status migrainosus, not intractable G43.709 Occipital neuralgia of right side M54.81 Trigger point of shoulder region M25.519 CPT Codes Nerve Block - CPT: 31245-Eeavcsp Occipital ([id number]) Therapeutic Injection - Ther Injection 2: [id number] Point Injection 3 or more ([id number])
[2025-06-28 08:15] VITALS: BP 118/70; PULSE 72; RESP 16; O2SAT 98
== END 2025-06-28 09:12 | disposition home or self-care (01) ==
LOC: HO.HSM 08:02
PROVIDERS: PCP Internal Medicine; Visit Provider Nurse Practitioner
DX: G43.709 Chronic migraine without aura, not intractable, without status migrainosus (principal); M54.81 Occipital neuralgia; M25.519 Pain in unspecified shoulder; M79.18 Myalgia, other site
CPT/HCPCS: 20553; 64405; 99214

== ENCOUNTER → 2025-06-28 08:01 | Outpatient (BNVA) | payer MEDICARE, MEDICAID, SELFPAY | PROVIDERS: PCP Internal Medicine; Visit Provider Nurse Practitioner | DX: M54.81 Occipital neuralgia (principal); G43.709 Chronic migraine without aura, not intractable, without status migrainosus; M79.18 Myalgia, other site; M25.511 Pain in right shoulder; M25.512 Pain in left shoulder | CPT/HCPCS: 20553; 64405; 99212; J0665 ==

== ENCOUNTER 2025-07-29 07:46 | Outpatient (AMB) | payer MEDICARE, MEDICAID, SELFPAY ==
[2025-07-29 08:43] VITALS: BP 118/78; PULSE 90; RESP 16; O2SAT 97; BMI 50.4
--- NOTE | 2025-07-29 08:43 | A.OFFVIS_ITS ---
Vital Signs 07/29/25 08:43 Height 5 ft 1 in Weight 267 lb BMI 50.4 BP 118/78 Blood Pressure Location Rt brachial Position Sitting Respiration 16 Pulse 90 Pulse Oximetry (%) 97 Oxygen Delivery Method Room Air Intake Visit Reasons: Trigger point injection Data Management Associate Required: No Allergies lurasidone (Latuda) Allergy (Severe, Verified 04/07/24 08:58) may have caused CVA morphine Allergy (Severe, Verified 04/07/24 08:58) Anaphylaxis codeine (CODEINE) Allergy (Intermediate, Verified 04/07/24 08:58) RASH duloxetine (Cymbalta) Allergy (Intermediate, Verified 04/07/24 08:58) rash, n/v lamotrigine Allergy (Intermediate, Verified 04/07/24 08:58) Rash milnacipran (Savella) Allergy (Intermediate, Verified 04/07/24 08:58) rash,nausea, vomiting Penicillins (PENICILLINS) Allergy (Intermediate, Verified 04/07/24 08:58) NAUSEA & VOMITING, rash pregabalin Allergy (Intermediate, Verified 04/07/24 08:58) rash,n/v sulindac Allergy (Intermediate, Verified 04/07/24 08:58) Nausea, Vomiting amiloride Allergy (Unknown, Verified 04/07/24 08:58) Unknown hydrochlorothiazide Allergy (Unknown, Verified 04/07/24 08:58) Unknown onabotulinumtoxinA (From Botox) Allergy (Unknown, Verified 07/29/25 08:45) Unknown acetaminophen (From Fioricet) Adverse Reaction (Severe, Verified 06/28/25 08:27) Migraine butalbital (From Fioricet) Adverse Reaction (Severe, Verified 06/28/25 08:27) Migraine caffeine (From Fioricet) Adverse Reaction (Severe, Verified 06/28/25 08:27) Migraine From PERCOCET Allergy (Severe, Uncoded 04/04/22 11:02) rash,n/v HPI Comments Details: Agueda is a 50-year-old female patient with a past medical history of migraine, RVCS, low back pain, diabetes, hypothyroidism, ALEJANDRO, hypertension, asthma, CVA, insomnia, bipolar disorder, depression, and anxiety who is following in the clinic for headaches. Despite trying multiple medications and therapies, including prednisone, nerve blocks, the headaches persisted and have been R>L. In March her topiramate was increased to 25 mg twice daily she also takes Emgality once monthly. At the time of our last visit Agueda explained to me that she had a long history of migraine before her CVA but worse after her CVA. Her migraines are generally right-sided and start in the occipital area and radiate up to the right temporal area. She has significant light and sound sensitivity as well as associated nausea. Headaches are daily and constant. They are felt as a throbbing and pressure pain. She denies any visual changes or auras. She had been getting occipital nerve block injections and trigger point injections periodically however has never received them on a regular basis. She also will generally have her trigger points and nerve blocks done separately. At time of last visit, I performed a right occipital nerve block, bilateral trapezius trigger points, and right temporal trigger points. She tells me today, after her last appointment with me, she has felt much better and headaches are much better controlled compared to have they has been in the past. Her headaches did start to sit back in last Friday as is likely that the injections at that point more wearing off. [facility] Medical History (Updated 07/29/25 @ 09:11 by Blanca Brink CNP) History of blood transfusion Migraine Panic attack as reaction to stress Sacroiliac joint dysfunction of left side Sacroiliac joint dysfunction of right side Sacroiliitis COVID-19 vaccine series completed Lymphedema of left leg Low back pain Diabetes Hypothyroid ALEJANDRO (obstructive sleep apnea) Hypertension Asthma CVA (cerebral vascular accident) Arthritis Fibromyalgia Insomnia Bipolar disorder Depression Anxiety Surgical History Status post insertion of nerve stimulator History of tonsillectomy and adenoidectomy H/O arthroscopy of right knee History of endometrial ablation Hx of appendectomy History of hernia surgery S/P tubal ligation Social History Are you a primary manager critical care unit to a significant other at home: No Do you presently have visiting nurse or other home services: Yes (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) Comment: LEFT SIDED WEAKNESS Patient Tobacco Use Status: Never used Tobacco Advance Directives Date on File: 03/12/22 Review of Systems Const All systems reviewed & are unremarkable except as noted in HPI and below Physical Exam Vital Signs: Last Vital Signs Pulse 90 07/29/25 08:43 Resp 16 07/29/25 08:43 BP 118/78 07/29/25 08:43 Pulse Ox 97 07/29/25 08:43 Oxygen Delivery Method Room Air 07/29/25 08:43 BMI result Body Mass Index 50.4 Const General: cooperative, healthy appearing, comfortable and no acute distress Nutritional Appearance: well nourished Orientation/consciousness: patient oriented x3 Limitations: no limitations HEENT Head: Yes normal to inspection and Yes normocephalic Mouth: abnormal TMJ Eyes General: appearance normal, both eyes and all related structures Visual Short: normal visual short by confrontation Alignment and Position: alignment normal Periorbital: periorbital findings normal Eyelids: Yes eyelids normal Conjunctivae: conjunctivae normal Sclerae: sclerae normal Back/Spine/Pelvis Other: right occipital notch tenderness. Right temporal tenderness, and bilateral trapezius trigger points R>L Neuro General: patient oriented x3 and deep tendon reflexes 2+ bilaterally Cranial nerves: Yes CN's II-XII intact bilaterally Cognition (Neuro): normal cognition Motor exam (neuro): no tremor noted Sensory Exam: double simultaneous stimulation for sensation normal Romberg Test: Negative Pupils: Normal pupillary reactivity/response: bilateral Psych Appearance: grossly normal Mental Status: mental status grossly normal Speech and movement: Normal speech and movement present and Clear speech present Affect: normal affect Attitude: cooperative Thought process: Normal thought process present Thought content: Normal thought content present Insight: Good insight present (Psych) Judgement: Good judgement present (Psych) Office Procedures Nerve Block Details: Bilateral Greater Occipital Nerve block procedure: Laterally: Right Indications: Occipital neuralgia Current allergies and current list of medications were reviewed prior to procedure, verbal consent was obtained, procedure was explained in detail to the patient prior to starting. Time-out was performed prior to procedure. Following universal hygiene protocols, patient's right occipital area was located by drawing a line between the external occipital protuberance and the mastoid process. The greater occipital nerve was located approximately 2/3 along this line appliance assembler to the occiput, and corresponded with the point of m aximum tenderness. Alcohol was applied topically to the skin. A 27 gauge needle (aspirating during insertion) was inserted at a 45 degree angle until just above the periosteum. The providers selected agent (s)/medications (as documented in this note) were injected on the left side (directing needle to center, left and right of painful focus any fanning technique). Pressure with gauze pad was held briefly upon the site of puncture to minimize bleeding and to further spread anesthetic subcutaneously. The patient was monitored for 15 minutes after the procedure and no complications were observed. Post procedure care was reviewed with the patient including application of ice intermittently to the injection sites over the course of the day to reduce inflammation. CPT: 11230-Pxqfiad Occipital Procedure code (CPT) selection complete Therapeutic Injection Therapeutic Injection Details: Trigger point injection procedure: Laterally:bilateral Indications: Chronic headaches, myofascial pain Following universal hygiene protocol, after explaining the risks and benefits as well as hazards of the procedure to the patient, consent was signed and placed in the chart. Time-out prior to starting the procedure was performed. The areas over the bilateral trapezius and right temporalis were cleansed with alcohol. 2 Sites in each trapezius muscle and 5 sites in the right temporalis muscle muscle injected with a 27 gauge 1.5 in needle with myofascial spasm. Pat ient tolerated the procedure well, localized bleeding was controlled. Patient monitored in the clinic for 15 minutes for complications. Patient was discharged home with instructions to apply ice to the back of their head as needed. 00229-Avkshsv Point Injection 3 or more All charges added?: Procedure code (CPT) selection complete Office Meds bupivacaine (PF) 0.5 % (5 mg/mL) injection solution Performing Provider: Blanca rBink CNP Performing Location: [facility] Administered by: Blanca Brink CNP on 07/29/25 09:11 Dose Route Admin Location Dispensed Lot Number Expiration Date [facility] Senior Business Consultant 3 mL Infiltration 10 mL [id number] [employer] Total Dispensed Waste 10 mL 70 % bupivacaine (PF) 0.5 % (5 mg/mL) injection solution Performing Provider: Blanca Brink CNP Performing Location: [facility] Administered by: Blanca Brink CNP on 07/29/25 09:11 Dose Route Admin Location Dispensed Lot Number Expiration Date [facility] Senior [employer] 4 mL Infiltration 10 mL [id number] [employer] Total Dispensed Waste 10 mL 60 % Assessment & Plan Assessment & Plan (1) Chronic migraine without aura without status migrainosus, not intractable: Code(s): G43.709 - Chronic migraine without aura, not intractable, without status migrainosus Category: Medical (2) Muscle pain, myofascial: Code(s): M79.18 - Myalgia, other site Category: Medical Plan Agueda is a 50-year-old female patient with a past medical history of migraine, RVCS, low back pain, diabetes, hypothyroidism, ALEJANDRO, hypertension, asthma, CVA, insomnia, bipolar disorder, depression, and anxiety who is following in the clinic for headaches. She is on a combination of topiramate and Emgality as well as amitriptyline 100 mg at bedtime. She has responded well to occipital nerve blocks, trapezius trigger points, and right temporalis trigger points. I did perform the same regimen today as I did last time given her good report. I will have her come back in 1 month for repeat trigger point and nerve block injections. Orders: Orders AMB Nerve Block Today G43.709 - Chronic migraine without aura, not intractable, without status migrainosus, M79.18 - Myalgia, other site AMB Trigger Point Injection Today G43.709 - Chronic migraine without aura, not intractable, without status migrainosus, M79.18 - Myalgia, other site Coding Level of Care Code Est Pt Level 2 (02093) Diagnoses Chronic migraine without aura without status migrainosus, not intractable G43.709 Muscle pain, myofascial M79.18 CPT Codes Nerve Block - CPT: 11358-Ysjrlex Occipital ([id number]) Therapeutic Injection - Ther Injection 2: 64298-Fljqgay Point Injection 3 or more ([id number])
== END 2025-07-29 09:02 | disposition home or self-care (01) ==
LOC: HO.HSM 07:46
PROVIDERS: PCP Internal Medicine; Visit Provider Nurse Practitioner
DX: G43.709 Chronic migraine without aura, not intractable, without status migrainosus (principal); M79.18 Myalgia, other site
CPT/HCPCS: 20553; 64405

== ENCOUNTER → 2025-07-29 07:46 | Outpatient (BNVA) | payer MEDICARE, MEDICAID, SELFPAY | PROVIDERS: PCP Internal Medicine; Visit Provider Nurse Practitioner | DX: G43.709 Chronic migraine without aura, not intractable, without status migrainosus (principal); M79.18 Myalgia, other site | CPT/HCPCS: 20553; 64405; J0665 ==